=== PATIENT | male | born 1950 | race Caucasian/White ===

== ENCOUNTER 2021-08-19 08:56 | Outpatient (CLI) | payer MEDICARE, SELFPAY ==
--- NOTE | ~2021-08-19 | XR_ITS ---
EXAMINATION: XR abdomen/kub 1V EXAM DATE: 08/19/2021 09:27 INDICATION: LT ureteral stone. TECHNIQUE: Frontal projection of the upper abdomen, frontal projection lower abdomen/pelvis for inter pretation. There is no prior study for comparison. FINDINGS: There are some scattered calcifications overlying the sacrum. Correlation with patient's pr ior cross-sectional imaging would be helpful. There is moderate amount of colonic stool obscuring the renal contours. No small bowel obstruction. There is no organomegaly. Mild to moderate bony degenera tive changes. IMPRESSION: Calcifications overlying sacrum could be arterial sclerosis but correlation with prior i maging would be helpful. Reviewed, dictated and finalized at location B. IMPRESSION: Calcifications overlying sacrum could be arterial sclerosis but co rrelation with prior imaging would be helpful.
== END 2021-08-19 08:57 | disposition home or self-care (01) ==
PROVIDERS: PCP Internal Medicine; Visit Provider Nurse Practitioner
DX: N20.1 Calculus of ureter (principal)
CPT/HCPCS: 74018

== ENCOUNTER 2021-08-27 13:53 | Outpatient (CLI) | payer MEDICARE, SELFPAY ==
--- NOTE | ~2021-08-27 | CT_ITS ---
EXAMINATION: CT abdomen pelvis wo con DATE: 08/27/2021 14:19 INDICATION: Kidney stone. Left ureteral stone. TECHNIQUE: Computed tomography (CT) of the abdomen and pelvis was performed without intravenous contr ast. Automated exposure control and iterative reconstruction technique were employed. Exam dose: 290 .97 mGy-cm total exam DLP. COMPARISON: 08/19/2021 KUB FINDINGS: Emphysematous changes are noted in the lower lung zones. Calcified pulmonary granulomas. There is scattered patchy focal groundglass infiltrates in the middle lobe and lower lobes. Normal heart size. No pericardial or pleural effusion. Cholelithiasis. No gallbladder wall thickening or pericholecystic fluid or fat stranding or bile duct or pancreatic duct dilatation is detected. There are several up to 12 mm hepatic hypoattenuating les ions, some too small to definitively characterize, likely hepatic cysts. Normal splenic size. No pancreatic mass lesion or calcification. Probable diverticulum of the posterior aspect of the gastric fundus. The adrenal glands are unremarkable. 3.5 cm lower pole left renal cyst. No urinary tract calculus or hydroureteronephrosis. There is extensive calcification of the abdominal aorta, iliac and femoral arteries but no aneurysm. No intraperitoneal or retroperitoneal or pelvic mass lesion or adenopathy or ascites. Normal appendix. There are scattered left colon diverticula; no CT evidence of diverticulitis. No bowel obstruction, b owel wall thickening, pneumatosis or intraperitoneal free air. There is a prominent soft tissue mass at the base of the urinary bladder which may be prostate enlarg ement, prostate carcinoma or less likely urinary bladder urothelial carcinoma. There is moderate diff use thickening of the urinary bladder wall consistent with some bladder outlet obstruction due to the prostate enlargement. No suspicious osteolytic or osteoblastic lesions. IMPRESSION: No urinary tract calculi or hydroureteronephrosis Prominent soft tissue density at the base of the urinary bladder which may be due to prostate enlarge ment, prostate carcinoma and/or urothelial bladder carcinoma Moderate diffuse bladder wall thickening consistent with bladder outlet obstruction Diverticulosis of left colon; no CT evidence of diverticulitis 3.5 cm left renal cyst Probable hepatic cysts Cholelithiasis Emphysema Scattered small focal patchy groundglass infiltrates in the lower lung zones Reviewed, dictated and finalized at Location [facility]. Reviewed, dictated and finalized at location A. IMPRESSION: No urinary tract calculi or hydroureteronephrosis Prominent soft tissue density at the base of the urinary bladder which may be d ue to prostate enlargement, prostate carcinoma and/or urothelial bladder carcin b[place] Moderate diffuse bladder wall thickening consistent with bladder outlet obstruc tion Diverticulosis of left colon; no CT evidence of diverticulitis 3.5 cm left renal cyst Probable hepatic cysts Cholelithiasis Emphysema Scattered small focal patchy groundglass infiltrates in the lower lung zones
== END 2021-08-27 13:54 | disposition home or self-care (01) ==
LOC: ANHIMG 13:59
PROVIDERS: PCP Internal Medicine; Visit Provider Internal Medicine
DX: N20.0 Calculus of kidney (principal); K57.30 Diverticulosis of large intestine without perforation or abscess without bleeding; K80.20 Calculus of gallbladder without cholecystitis without obstruction; N28.1 Cyst of kidney, acquired; J43.9 Emphysema, unspecified
CPT/HCPCS: 74176

== ENCOUNTER 2025-01-30 10:05 | Emergency (ER) | payer MEDICARE, SELFPAY ==
--- NOTE | ~2025-01-30 | XR_ITS ---
EXAMINATION: XR ribs RT 2V w CXR 2V DATE: 01/30/2025 10:47 INDICATION: Cough. Rib injury. TECHNIQUE: Frontal and lateral views of the chest and 3 views of the right ribs were obtained. COMPARISON: Chest radiograph dated 11/07/2015 FINDINGS: Likely nondisplaced fracture at the anteriormost right eighth rib. No other rib fractures identified. Ventricles are clear with no focal airspace opacities, pulmonary edema, pleural effusion or pneumoth orax. Heart size is normal. IMPRESSION: 1. Likely nondisplaced fracture at the anteriormost right eighth rib. No pneumothorax or other acute cardiopulmonary disease. Reviewed, dictated and finalized at location B. IMPRESSION: 1. Likely nondisplaced fracture at the anteriormost right eighth rib. No pneumo thorax or other acute cardiopulmonary disease.
--- NOTE | 2025-01-30 10:10 | ED_ITS ---
HPI - URI/Sore Throat General Chief Complaint: Upper Respiratory Infection Stated Complaint: Rib pain Time Seen by Provider: 01/30/25 10:09 Source: patient Mode of arrival: ambulatory Limitations: no limitations History of Present Illness HPI Narrative: Patient is a 74-year-old male who presents with congestion, productive cough and right rib pain. Patient states congestion cough has been present for 5 days. Rib pain started 2 days ago when he was mowing and handle whipped back and hit him very hard. Patient states pain is 9/10 when coughing. Denies any swelling, redness or bruising to ribs. Patient has taken ibuprofen twice a day. Patient has also been taking Mucinex and Flonase. Denies any blood in sputum, fever, chills, nausea, vomiting, diarrhea. Has history of collapsed lung. Stop smoking 25 years ago. Related Data Home Medications ?Medication ?Instructions ?Recorded ?Confirmed ?Last Taken ?Type aspirin 325 mg tablet 325 mg PO DAILY 01/30/25 01/30/25 Unknown History cyanocobalamin (vitamin B-12) mcg 01/30/25 Unknown History 1,000 mcg/mL injection solution escitalopram oxalate 10 mg tablet mg 01/30/25 Unknown History fluticasone propionate 50 1 spray intranasal DAILY PRN 01/30/25 01/30/25 Unknown History mcg/actuation nasal allergy symptoms spray,suspension glimepiride 2 mg tablet mg 01/30/25 Unknown History lisinopril 20 mg tablet mg 01/30/25 Unknown History metformin 500 mg tablet mg 01/30/25 Unknown History metoprolol succinate 50 mg mg PO 01/30/25 Unknown History tablet,extended release 24 hr pioglitazone 30 mg tablet mg 01/30/25 Unknown History rosuvastatin 40 mg tablet mg 01/30/25 Unknown History tamsulosin 0.4 mg capsule mg PO 01/30/25 Unknown History Allergies Allergy/AdvReac Type Severity Reaction Status Date / Time fish oil Allergy Mild throat Verified 01/30/25 10:26 swelling Penicillins Allergy Mild Rash Verified 01/30/25 10:26 Review of Systems Review of Systems: All systems reviewed & are unremarkable except as noted in HPI and below Constitutional: Constitutional: Denies chills, Denies fatigue, Denies fever(s), Denies headache(s), Denies malaise and Denies weakness Eyes: Eyes: Denies blurry vision, Denies itchy eyes and Denies loss of vision ENT: Denies otalgia, Denies headache(s), Reports nasal congestion, Denies sinus pain and Denies sore throat Cardiovascular: Cardiovascular: Denies chest pain, Denies irregular heart rh ythm and Denies dyspnea Respiratory: Respiratory: Reports cough and Denies dyspnea Gastrointestinal: Gastrointestinal: Denies abdominal pain, Denies diarrhea, Denies nausea and Denies vomiting Musculoskeletal: Musculoskeletal: Denies back pain, Denies myalgias, Denies arthralgias and Reports other (chest wall pain) Integumentary/Breasts: Skin/Breast: Denies pruritus and Denies rash Neurologic: Denies headache(s), Denies loss of vision and Denies weakness Psychiatric: Psychiatric: Reports no additional psychiatric complaints Endocrine: Endocrine: Denies fatigue Allergic/Immunologic: Allergic/Immunologic: Denies itchy eyes PMFSH Family History Family History Other Diabetes mellitus Family history of Alzheimer's disease Family history of cardiovascular disease Family history of seizure disorder Social History Social History Smoking status: Never smoker Alcohol intake: never Comments At time of signature, agree with nursing past medical, surgical, social and family history. There is no relevant family history pertinent to the presenting complaint. Exam Const: General: cooperative, healthy appearing, comfortable, no acute distress and well nourished Nutritional Appearance: well nourished Orientation/consciousness: patient oriented x3 Limitations: no limitations HENMT: Head: normal to inspection, normocephalic and atraumatic Ears: hearing grossly normal bilaterally, external ears normal, TM's normal bilaterally, EAC's normal and no periauricular adenopathy Face/Nose/Sinus: Normal external nose present, Abnormal mucous membranes and turbinates present erythematous bilateral and diffuse, normal facial exam, sinuses nontender and face symmetric Face and sinus: normal facial exam, sinuses nontender and face symmetric Mouth: Yes Normal oral and palatal mucosa present, Yes lip normal, Yes tongue normal, Yes Normal salivary glands and ducts present, Yes oropharynx normal and Yes moist mucous membranes Teeth and gingiva: dentition normal Throat: posterior oropharynx normal, tonsils normal and uvula midline Eyes: General: appearance normal, both eyes and all related structures Alignment and Position: alignment normal and position normal Periorbital: periorbital findings normal Eyelids: eyelids normal Pupils: Equal, round and reactive pupils present Neck: Neck: normal visual inspection, full ROM, no lymphadenopathy and supple Chest: Chest palpation & inspection: normal inspection of the chest, normal palpation of entire chest wall, no crepitus and tenderness rib right mid- clavicular line involving the 8th rib and involving the 9th rib Resp: Effort & Inspection: normal respiratory effort and able to speak in complete sentences Auscultation: clear to auscultation bilaterally, no crackles, no rales, no rhonchi and no wheezes Cardio: Rate: regular rate Rhythm: regular rhythm Heart sounds: S1 normal heart sound present and S2 normal heart sound present GI: Inspection: normal to inspection Skin: General skin exam: normal color and no rashes or lesions noted Neuro: General: patient oriented x3 and moves all extremities Cranial nerves: Yes Equal, round and reactive pupils present Speech: normal speech Gait exam (Neuro): Normal gait present Extrem: General: normal to inspection, full ROM and no edema Psych: Appearance: grossly normal and well kempt Mental Status: mental status grossly normal Speech and movement: Normal speech and movement present Affect: normal affect Attitude: cooperative Thought process: Normal thought process present Course Course Emergency Course: Discharge instructions reviewed with patient, as well as provided in writing per nursing staff. The instructions also include specific and strict return/GO TO THE ER as well as f/u information. All questions have been answered, and the patient deny any further questions with discharge and discharge plan. Portions of this record may have been created with voice recognition software Level of Care: Express Care Visit Vital Signs Vital signs: Reviewed MDM - URI/Sore Throat MDM Narrative Medical decision making narrative: Patient states he has had runny nose at baseline for years after having COVID. Patient is now having worsening congestion and productive cough. Complicated by injury 2 days ago, now painful to cough. Will treat with antibiotics, steroids and albuterol inhaler due to fractured ribs. Will also prescribe muscle relaxers for chest wall pain and narcotic medication for pain control. Pt well hydrated appearing, in no respiratory distress, hemodynamically stable. Recommend supportive care. The patient is stable at time of discharge the clinical impression was discussed and the patient was given the opportunity to ask questions, which were addressed as completely as possible given the information available at present. Anticipatory guidance and return to care precautions were discussed and the importance of primary care follow-up was stressed and encouraged. The patient voiced understanding of the plan, indications to return, and the need for follow-up. Exam findings show no acute concerns or changes Patient is appropriate for outpatient treatment and follow-up. Differential diagnosis considered: [place] virus, strep pharyngitis, allergic rhinitis, upper respiratory tract infection, sinusitis, rhinosinusitis, nasopharyngitis. viral pharyngitis, otitis media, otitis externa, otitis effusion, foreign body, cerumen impaction, viral syndrome, and influenza.? Medical Records Attestation: I reviewed the patient's medical records. Imaging Data Radiologist's impression: EXAMINATION: XR ribs RT 2V w CXR 2V DATE: 01/30/2025 10:47 INDICATION: Cough. Rib injury. TECHNIQUE: Frontal and lateral views of the chest and 3 views of the right ribs were obtained. COMPARISON: Chest radiograph dated 11/07/2015 FINDINGS: Likely nondisplaced fracture at the anteriormost right eighth rib. No other rib fractures identified. Ventricles are clear with no focal airspace opacities, pulmonary edema, pleural effusion or pneumothorax. Heart size is normal. IMPRESSION: 1. Likely nondisplaced fracture at the anteriormost right eighth rib. No pneumothorax or other acute cardiopulmonary disease. Discharge Plan Discharge Clinical Impression: Upper respiratory infection with cough and congestion, Fracture, rib Patient Disposition: Home Condition: Stable Instructions: Rib Fracture (ED), Upper Respiratory Infection (ED) Additional Instructions: Take antibiotic as prescribed. Take steroids in the morning with food. Use inhaler with spacer as needed. You have been prescribed Doxycycline today.It may make your skin more sensitive to sunlight than normal. Make sure you wear sunscreen at all times when outside while on the medication. Other symptomatic treatments include: -Alternate Tylenol and Motrin per package directions for fever or pain: Tylenol 650-1000mg by mouth every 4-6 hours. Do not exceed 4000mg in 24 hours. Advil (Ibuprofen) 600 mg by mouth every 6 hours. Do not exceed 2400mg in 24 hours. 8 AM: Tylenol 11 AM: Ibuprofen 2 PM: Tylenol 5 PM: Ibuprofen 8 PM: Tylenol 11 PM: Ibuprofen 2 AM: Tylenol 5 AM: Ibuprofen -Antihistamine medication such as Benadryl at night and Zyrtec/Claritin/Susu during the day can help improve symptoms. -Use Flonase twice a day for 5 days then daily to help reduce the inflammation and dry up your sinuses. -You can also use Sudafed or Mucinex. Be sure to drink plenty of water with these medications at least 8 ounces with every dose and it is important to drink 8 to 10 glasses of water per day. Water is a natural decongestant -Eat and drink things that are easy to swallow, like tea or soup, or popsicles. -Oral rinses such as: Salt water gargles and/or may use topical anesthetic (eg. Chloraseptic spray) or lozenges to relieve dryness or throat pain). -Frequent hand washing or hand other sports coach or instructor is one of the best ways to prevent spread of infection. -Using a vaporizer or humidifier at night will also help thin secretions and help with coughing up phlegm. Call your Primary Care Doctor and make a follow-up appointment in 3 days. If your cough worsens, you develop a fever greater than 103, you develop shaking chills, a fast heartbeat, trouble breathing and/or feel you are are breathing much faster than usual, call your Primary Care Doctor or go to the ER. Pain may get worse for a week and last for up to eight weeks.The most important thing is to get your pain under control. Breathing exercises will not be effective unless your pain is controlled. Take your pain relieving medications as prescribed by your doctor, and continue to speak with your primary care doctor about maintaining your pain relief. Strenuous activities should be avoided for the first 3-4 weeks, after which you can commence physical activity as pain allows. If the pain is increasing you may be doing too much. Cough and deep breath at least 10 times per hour. Try holding a cushion firmly against the painful site when you benitez and cough to decrease the pain. Sit out of bed and keep moving as much as you feel comfortable. This will decrease the risk of developing lung complications. Your blood pressure was elevated above 120/80 today at Urgent Care. This puts you above the threshold for follow up visit with a primary care provider. High blood pressure does not usually cause any symptoms, however it may lead to kidney failure, stroke, heart disease just to name a few if untreated . Many people are anxious when seeing a provider or nurse. As a result, you are not diagnosed with hypertension at this time unless your blood pressure is persistently high at two office visits at least one week apart. Some things that can help lower blood pressure are lifestyle modifications, such as light exercise, decreased salt in diet, and weight loss. It is important to follow up with a PCP about this within 1 week. If you are having a hard time finding a physician please call our [facility] liaison at [phone]. Patient Language: Tuvaluan Prescriptions: New (DME) Tej HOOD Spacer See Rx Instructions .Route Qty: 1 0RF Rx Instructions: As directed prednisone 20 mg tablet 40 mg PO DAILY 5 Days Qty: 10 0RF doxycycline monohydrate 100 mg tablet 100 mg PO BID 5 Days Qty: 10 0RF albuterol sulfate 90 mcg/actuation HFA aerosol inhaler 2 puff inhalation QID PRN (Reason: shortness of breath or wheezing) Qty: 6.7 0RF hydrocodone-acetaminophen 5-325 mg tablet 1 tablet PO Q6H PRN (Reason: pain) Qty: 12 0RF baclofen 10 mg tablet 10 mg PO TID 5 Days Qty: 15 0RF No Action metoprolol succinate 50 mg tablet extended release 24 hr PO tamsulosin 0.4 mg capsule PO cyanocobalamin (vitamin B-12) 1,000 mcg/mL solution pioglitazone 30 mg tablet escitalopram oxalate 10 mg tablet rosuvastatin 40 mg tablet aspirin 325 mg tablet 325 mg PO DAILY fluticasone propionate 50 mcg/actuation spray,suspension 1 spray intranasal DAILY PRN (Reason: allergy symptoms) Rx Instructions: administer into each nostril metformin 500 mg tablet lisinopril 20 mg tablet glimepiride 2 mg tablet Follow-up/Referrals: Abhi Estrada MD [Physician] - 3 Days Time of Disposition: 11:38
[2025-01-30 10:22] VITALS: BP 141/59; PULSE 77; RESP 18; TEMP 36.2; O2SAT 99
--- OUTSIDE RECORDS SUMMARY | 2025-01-30 10:45 | XMS_ITS | Continuity of Care Document ---
Author Organization [facility] Address [address] [place] [address] [address] [place] [address] Phone Care Team Providers Care Locomotive Repairer Diesel Name Role Phone Uriah Pérez DO Unavailable Unavailable Advance Directives Directive Yes / No Effective Date File Name No Information Encounters Encounter Description Practice Location Reason(s) For Visit Diagnoses Date Provider Providers Copied on Encounter [facility], [address], [place], [place], [id number], tel:[phone] [facility] No Information [address] [address] [place], [address], [place]. tel:[phone] Referring Provider: Sachin Hu OD W, [address] [place] [address], [address]. tel:[phone] Family History Family Member Type Diagnosis Age At Onset No Information Payers Payer name Insurance type Covered libertarian ID Authoriza tion(s) No Information Social History Type Description Quantity Date Captured Comments Sex Male Smoking Status No Information Chief Complaint And Reason For Visit No Information Reason For Referral Reason For Referral No Information History Of Present Illness Encounter Date Complaint History Of Prese nt Illness No Information Functional Status Date Functional Assessmen t No Information Instructions Date Instruction Additional Infor mation No Information Assessments Type Assessment Date No Information Patient Care Teams Name Effective Dates (start - stop) Status Members No Information
--- OUTSIDE RECORDS SUMMARY | 2025-01-30 10:45 | XMS_ITS | Clinical Summary ---
Author Organization [facility] Address [address] [place] [address] Care Team Providers Care Pest Control Supervisor Name Role Phone Unavailable Primary Care Provider Unavailabl e Source Comments [facility],non-owned Affiliates and Associated Physician Practices is amultiple site organization consisting of ambulatory clinics and hospital sitesin [place], [place], [place] and [place]. This disclosure is being madepursuant to the Care Everywhere program and may not contain all information available regarding this patient. Last updated 18.[facility] [employer] Social History Tobacco Use Types Packs/Day Years Used Date Smoking Tobacco: Never Assessed Sex and Gender Information Value Date Recorded Sex Assigned at Not on file Gender Identity Not on file Sexual Orientation Not on file Plan of Treatment Health Maintenance Due Date Last Done Comments COLOGUARD (AGES 45-75) - COL ON CA SCREENING 1950 COLON MONITORING 1951 COLONOSCOPY - COLON CA SCREENING 1951 CT COLONOGRAPHY - COLON CA SCREENING 1950 Colorectal Cancer Screening 1950 FIT - COLON CA SCREENING 1950 FLEX SIG - COLON CA SCREENING 1950 LIPID TESTING 1950 HEPATITIS C SCREENING 02/12/1969 DTAP/TDAP/TD VACCINES (1 - Tdap) 1970 PNEUMOCOCCAL VACCINE 50+ (1 of 1 - PCV) 2001 ZOSTER VACCINE (1 of 2) 2001 COVID-19 VACCINE ( - 2023-2 5 season) 2024 DEPRESSION SCREENING 10/23/2024 INFLUENZA VACCINE (Season Ended) 2025 Respiratory Syncytial Virus (RSV) Vaccine Pt: or over 60 yrs (1 - 1-dose 75+ series) 2026 HEPATITIS B VACCINE Aged Out No longe r eligible based on patient's age to complete this topic HIB VACCINE Aged Out No longer eligi ble based on patient's age to complete this topic HPV VACCINE Aged Out No longer eligi ble based on patient's age to complete this topic MENINGOCOCCAL (Group B) VACC INE SHARED DECISION-MAKING Aged Out No longer eligibl e based on patient's age to complete this topic MENINGOCOCCAL GROUPS A/C/Y/W VACCINE Aged Out No longer eligible b ased on patient's age to complete this topic
--- OUTSIDE RECORDS SUMMARY | 2025-01-30 10:45 | XMS_ITS | Clinical Summary ---
Author Organization [facility] Address [address] [place] [address] Care Team Providers Care Boiler Cleaner Name Role Phone Juanita Sarmiento MD Primary Care Provider [phone] Social History Tobacco Use Types Packs/Day Years Used Date Smoking Tobacco: Never Assessed Sex and Gender Information Value Date Recorded Sex Assigned at Not on file Legal Sex Male 4:27 PM CDT Gender Identity Not on file Sexual Orientation Not on file Plan of Treatment Health Maintenance Due Date Last Done Comments Colorectal Cancer Screening Colonoscopy (10 Years) 1951 Hepatitis C 1969 DTaP, Tdap and Td Vaccines ( 1 - Tdap) 1970 Zoster Vaccines (1 of 2) 2001 Annual Medicare Wellness Visit 02/18/2016 Pneumococcal Vaccine: 65+ Ye ars (1 of 1 - PCV) 02/18/2016 COVID-19 Vaccine ( - 2023-2 5 season) 2024 RSV Immunization or 60+ Years (1 - 1-dose 75+ series) 2026 Meningococcal B Vaccine Aged Out No l onger eligible based on patient's age to complete this topic Meningococcal Vaccine Aged Out No dimas tami eligible based on patient's age to complete this topic RSV Immunizations Under 20 Months Aged Out No longer eligible based on patient's age to complete this topic Insurance [employer] Care Teams Boiler Cleaner Relationship Specialty Start Date End Date Juanita Sarmiento MD [address] [place] [address] PCP - General INTERNAL MEDICINE 07/28/22
--- OUTSIDE RECORDS SUMMARY | 2025-01-30 10:46 | XMS_ITS | Data Portability ---
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 Studies ordered as below. Discussed plan with patient/careg iver, who expressed understanding . Follow up as noted below. [email or web address] Not available 07/31/2023 09:08:54 10/30/2023 10/30/2023 Patient presented for follow up. Studies ordered as below. Discussed plan with patient/careg iver, who expressed understanding . Follow up as noted below. Not available 10/30/2023 10:34:38 04/15/2024 04/15/2024 Patient presented for follow up. Studies ordered as below. Discussed plan with patient/careg iver, who expressed understanding . Follow up as noted below. Not available 04/15/2024 18:55:43 04/29/2024 04/29/2024 Patient presented for follow up. Studies ordered as below. Discussed plan with patient/careg iver, who expressed understanding . Follow up as noted below. Not available 04/29/2024 09:54:19 09/02/2024 09/02/2024 Patient presented for follow up. Studies ordered as below. Discussed plan with patient/careg iver, who expressed understanding . Follow up as noted below. Not available 09/02/2024 09:13:51 Plan of Treatment Reminders Order Date Submit Date Provider Last Modified By Organization Details Last Modified Time Details Appointments ESTABLISH ED PATIENT 15 2024 08:00A Tere Rizo MD Not available Not available Not available Lab HbA1c (hemoglob in A1c), blood 2023 024 [facility], [address] [place] [address], [id number], 09/23/2024 03:35:32 C-peptide , serum 2023 024 [facility], [address] [place] [address], [id number], 09/23/2024 03:35:33 microalbu min/creat inine, mass ratio, urine 2023 024 [facility], [address] [place] [address], [id number], 09/23/2024 03:35:30 vitamin B12, serum 2023 024 [facility], [address] [place] [address], [id number], 09/23/2024 03:35:34 lipid panel w/ direct LDL, serum 2023 024 [facility], [address] [place] [address], [id number], 09/23/2024 03:35:29 TSH, serum or plasma 2023 024 [facility], [address] [place] [address], [id number], 09/23/2024 03:35:31 CMP, serum or plasma 2023 024 [facility], [address] [place] [address], [id number], 09/23/2024 03:35:28 CBC w/ auto diff 2023 024 [facility], [address] [place] [address], [id number], 09/23/2024 03:35:26 vitamin D, 25-hydrox y, total, serum 2023 024 [facility], [address] [place] [address], [id number], 09/23/2024 03:35:33 CMP, serum or plasma 2023 024 [facility], [address] [place] [address], [id number], 04/23/2024 16:36:11 CBC 2023 024 [facility], [address] [place] [address], [id number], 04/23/2024 16:36:12 hemoglobi n A1c, QN, blood 2023 024 [facility], [address] [place] [address], [id number], 04/15/2024 19:26:00 C-peptide , serum 2023 024 [facility], [address] [place] [address], [id number], 04/23/2024 16:36:14 vitamin B12, serum 2023 024 [facility], [address] [place] [address], [id number], 04/23/2024 16:36:15 lipid panel w/ direct LDL, serum 2023 024 [facility], [address] [place] [address], [id number], 11/24/2023 07:36:50 TSH, serum or plasma 2023 024 [facility], [address] [place] [address], [id number], 11/24/2023 07:36:52 CMP, serum or plasma 2023 024 [facility], [address] [place] [address], [id number], 11/24/2023 07:36:49 CBC w/ auto diff 2023 024 [facility], [address] [place] [address], [id number], 11/24/2023 07:36:48 HbA1c (hemoglob in A1c), blood 2023 024 [facility], [address] [place] [address], [id number], 11/24/2023 07:36:53 microalbu min/creat inine, mass ratio, urine 2023 024 [facility], [address] [place] [address], [id number], 11/24/2023 07:36:51 C-peptide , serum 2023 024 [facility], [address] [place] [address], [id number], 11/24/2023 07:36:53 vitamin B12, serum 2023 024 [facility], [address] [place] [address], [id number], 11/24/2023 07:36:54 lipid panel w/ direct LDL, serum 2022 023 [facility], [address] [place] [address], [id number], 08/07/2023 05:30:16 TSH, serum or plasma 2022 023 [facility], [address] [place] [address], [id number], 08/07/2023 05:31:08 CMP, serum or plasma 2022 023 [facility], [address] [place] [address], [id number], 08/07/2023 05:30:43 CBC w/ auto diff 2022 023 [facility], [address] [place] [address], [id number], 08/07/2023 05:31:07 HbA1c (hemoglob in A1c), blood 2022 023 [facility], [address] [place] [address], [id number], 04/23/2024 16:36:13 C-peptide , serum 2022 023 [facility], [address] [place] [address], [id number], 08/07/2023 05:30:25 vitamin D, 25-hydrox y, total, serum 2022 023 [facility], [address] [place] [address], [id number], 08/07/2023 05:30:20 Referral physical therapist referral 2023 024 [facility], [address], [place], [address], 07/28/2024 04:01:29 endocrino logy referral [address] - Endocrinology , [address], [place], [address], 04/29/2024 10:28:02 physical therapist referral 2023 024 [facility], [address] [place], [address], 07/28/2024 04:01:29 cardiolog ist referral 2023 024 angel Fournier MD, [address] [place], [address], 04/15/2024 19:33:44 Procedures None recorded. Surgeries None recorded. Imaging US, renal 2023 024 [facility], [address], [address], [place], [address], 09/09/2024 04:09:51 XR, cervical spine, 2 or 3 view 2023 024 [facility], [address], [place], [address], 05/07/2024 13:27:55 XR, lumbar spine 2023 024 [facility], [address], [place], [address], 05/07/2024 13:30:06 CT, angiogram , chest, w/wo contrast 2023 024 [facility], [address], [place], [address], 04/17/2024 11:35:14 electroca rdiogram 2023 024 [facility], [address], [place], [address], 04/16/2024 13:14:24 XR, kidney + ureter + bladder 2023 024 [facility], [address], [place], [address], 11/06/2023 04:03:03 electroca rdiogram 2023 024 [facility], [address], [place], [address], 10/30/2023 13:10:49 XR, kidney + ureter + bladder 2022 023 [facility], [address], [place], [address], 08/07/2023 05:30:59 Medication Orders Tylenol Extra Strength 500 mg tablet 2023 024 [facility] #53778, [address] [place], [place], [id number], 09/02/2024 09:42:23 baclofen 10 mg tablet 2023 024 [facility] #44767, [address], [place], [id number], 04/29/2024 10:24:31 Tylenol Extra Strength 500 mg tablet 2023 024 [facility] #25543, [address], [place], [id number], 04/29/2024 10:24:26 lisinopri l 20 mg tablet 2023 024 [facility] #65527, [address], [place], [id number], 04/15/2024 19:25:52 metformin 500 mg tablet 2023 024 [facility] #58222, [address], [place], [id number], 04/15/2024 19:25:50 omeprazol e 20 mg capsule,d elayed release 2023 [facility], [address] [facility], [place], [place], [id number], 04/15/2024 19:25:53 Patient TargetsNo targets recorded. Patient Instructions Encounter Date Encounter Id Patient Instructions Last Modified By Organization Details Last Modified Time 07/31/2023 [id number] kidney stone: ca re instructions mshenouda Not available 07/31/2023 09:42:21 learning about d iet for kidney stone prevention mshenouda Not available 07/31/2023 09:42:21 body mass index: care instructions mshenouda Not available 07/31/2023 09:42:20 learning about healthy weight mshenouda Not available 07/31/2023 09:42:20 10/30/2023 [id number] chronic obstruct melania pulmonary disease (COPD): care instructions mshenouda Not available 10/30/2023 11:33:48 kidney stone: ca re instructions mshenouda Not available 10/30/2023 11:33:48 learning about d iet for kidney stone prevention mshenouda Not available 10/30/2023 11:33:47 body mass index: care instructions mshenouda Not available 10/30/2023 11:33:48 learning about healthy weight mshenouda Not available 10/30/2023 11:33:49 living will mshenouda Not available 05/2024 11:29:14 04/15/2024 [id number] body mass index: care instructions mshenouda Not available 04/15/2024 19:25:42 learning about healthy weight mshenouda Not available 04/15/2024 19:25:43 04/29/2024 [id number] neck pain: care instructions mshenouda Not available 04/29/2024 10:24:20 type 2 diabetes: care instructions mshenouda Not available 04/29/2024 10:24:21 back care and preventing injuries: care instructions mshenouda Not available 04/29/2024 10:24:20 getting back to normal after low back pain: care instructions mshenouda Not available 04/29/2024 10:24:21 learning about relief for back pain mshenouda Not available 04/29/2024 10:24:21 09/02/2024 [id number] neck pain: care instructions mshenouda Not available 09/02/2024 09:42:13 back care and preventing injuries: care instructions mshenouda Not available 09/02/2024 09:42:13 getting back to normal after low back pain: care instructions mshenouda Not available 09/02/2024 09:42:13 learning about relief for back pain mshenouda Not available 09/02/2024 09:42:13 chronic obstruct melania pulmonary disease (COPD): care instructions mshenouda Not available 09/02/2024 09:42:14 spirometry testing* LEROY Not availa ble 09/02/2024 10:33:25 hyperkalemia: ca re instructions mshenouda Not available 09/02/2024 09:42:14 kidney stone: ca re instructions mshenouda Not available 09/02/2024 09:42:15 learning about d iet for kidney stone prevention mshenouda Not available 09/02/2024 09:42:14 gastroesophageal reflux disease (GERD): care instructions mshenouda Not available 09/02/2024 09:42:15 body mass index: care instructions mshenouda Not available 09/02/2024 09:42:14 learning about healthy weight mshenouda Not available 09/02/2024 09:42:14 living will mshenouda Not available 08/23 09:36:15 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 At 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 chest 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 Referring Physician: Juanita Rizo, Internal Medicine, Encounter Date: 04/15/2024 Physical Therapist Referral for Neck pain Referring Physician: Juanita Rizo, Internal Medicine, Encounter Date: 04/29/2024 Physical Therapist Referral for Low back pain Referring Physician: Juainta Rizo Internal Medicine, Encounter Date: 04/29/2024 Endocrinology Referral for U ncontrolled type 2 diabetes mellitus Referring Physician: Juanita Rizo, Internal Medicine, Encounter Date: 04/29/2024 Results Created Date Observation Date Name Description Value Unit Range Abnormal Flag Note LastModifiedBy Organization Detail LastModifiedTime 07/18/2007/18/2023 COLOG UARD cologuard result CANCEL LED - ORDER D not applic able Not Available [facility] (Cologuard Orders Only) [address], [place], [address], 07/18/2023 08:46:13 11/21/19 24 11/22/2023 CBC WITH DIFFE RENTI AL/PL ATELE T WBC 7.4 x10e3 /uL 3.4-10 .8 Not Available [facility] ([facility]) [address] [place], [address], 11/24/2023 07:36:47 11/21/19 24 11/22/2023 CBC WITH DIFFE RENTI AL/PL ATELE T RBC 4.90 x10e6 /uL 4.14-5 .80 Not Available [facility] ([facility]) [address] [place], [address], 11/24/2023 07:36:47 11/21/19 24 11/22/2023 CBC WITH DIFFE RENTI AL/PL ATELE T hemoglobin 14.6 g/dL 13.0-1 7.7 Not Available [facility] ([facility]) [address] [place], [address], 11/24/2023 07:36:47 11/21/19 24 11/22/2023 CBC WITH DIFFE RENTI AL/PL ATELE T hematocrit 44.8 % 37.5-5 1.0 Not Available [facility] ([facility]) [address] [place], [address], 11/24/2023 07:36:47 11/21/19 24 11/22/2023 CBC WITH DIFFE RENTI AL/PL ATELE T MCV 91 fL 79-97 Not Available [facility] ([facility]) [address] [place], [address], 11/24/2023 07:36:47 11/21/19 24 11/22/2023 CBC WITH DIFFE RENTI AL/PL ATELE T MCH 29.8 pg 26.6-3 3.0 Not Available [facility] ([facility]) [address] [facility], [place], [address], 11/24/2023 07:36:47 11/21/19 24 11/22/2023 CBC WITH DIFFE RENTI AL/PL ATELE T MCHC 32.6 g/dL 31.5-3 5.7 Not Available [facility] ([facility]) [address] [facility], [place], [address], 11/24/2023 07:36:47 11/21/19 24 11/22/2023 CBC WITH DIFFE RENTI AL/PL ATELE T RDW 13.2 % 11.6-1 5.4 Not Available [facility] ([facility]) [address] [place], [address], 11/24/2023 07:36:47 11/21/19 24 11/22/2023 CBC WITH DIFFE RENTI AL/PL ATELE T platelets 276 x10e3 /uL 150-45 0 Not Available [facility] ([facility]) [address] [facility], [place], [address], 11/24/2023 07:36:47 11/21/19 24 11/22/2023 CBC WITH DIFFE RENTI AL/PL ATELE T neutrophils 71 % not estab. Not Available [facility] ([facility]) [address] [facility], [place], [address], 11/24/2023 07:36:47 11/21/19 24 11/22/2023 CBC WITH DIFFE RENTI AL/PL ATELE T lymphs 20 % not estab. Not Available [facility] ([facility]) [address] [place], [address], 11/24/2023 07:36:47 11/21/19 24 11/22/2023 CBC WITH DIFFE RENTI AL/PL ATELE T monocytes 7 % not estab. Not Available [facility] ([facility]) [address] [facility], [place], [address], 11/24/2023 07:36:47 11/21/19 24 11/22/2023 CBC WITH DIFFE RENTI AL/PL ATELE T eos 2 % not estab. Not Available [facility] ([facility]) [address] [place], [address], 11/24/2023 07:36:47 11/21/19 24 11/22/2023 CBC WITH DIFFE RENTI AL/PL ATELE T basos 0 % not estab. 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 0 Not Available [facility] ([facility]) [address] [place], [address], 11/24/2023 07:36:47 11/21/19 24 11/22/2023 CBC WITH DIFFE RENTI AL/PL ATELE T lymphs (absolute) 1.5 x10e3 /uL 0.7-3. 1 Not Available [facility] ([facility]) [address] [place], [address], 11/24/2023 07:36:47 11/21/19 24 11/22/2023 CBC WITH DIFFE RENTI AL/PL ATELE T monocytes(ab solute) 0.5 x10e3 /uL 0.1-0. 9 Not Available [facility] ([facility]) [address] [facility], [place], [address], 11/24/2023 07:36:47 11/21/19 24 11/22/2023 CBC WITH DIFFE RENTI AL/PL ATELE T eos (absolute) 0.2 x10e3 /uL 0.0-0. 4 Not Available [facility] ([facility]) [address] [facility], [place], [address], 11/24/2023 07:36:47 11/21/19 24 11/22/2023 CBC WITH DIFFE RENTI AL/PL ATELE T baso (absolute) 0.0 x10e3 /uL 0.0-0. 2 Not Available [facility] ([facility]) [address] [facility], [place], [address], 11/24/2023 07:36:47 11/21/19 24 11/22/2023 CBC WITH DIFFE RENTI AL/PL ATELE T immature granulocytes 0 % not estab. Not Available [facility] ([facility]) [address] [facility], [place], [address], 11/24/2023 07:36:47 11/21/19 24 11/22/2023 CBC WITH DIFFE RENTI AL/PL ATELE T immature grans (abs) 0.0 x10e3 /uL 0.0-0. 1 Not Available [facility] ([facility]) [address] [facility], [place], [address], 11/24/2023 07:36:47 11/21/19 24 11/22/2023 CBC WITH DIFFE RENTI AL/PL ATELE T NRBC ROAD MACHINE RUNNER Not Available [facility] ([facility]) [address] [facility], [place], [address], 11/24/2023 07:36:47 11/21/19 24 11/22/2023 CBC WITH DIFFE RENTI AL/PL ATELE T hematology comments: ROAD MACHINE RUNNER Not Available [facility] ([facility]) [address] [place], [address], 11/24/2023 07:36:47 11/21/19 24 11/22/2023 COMP. METAB OLIC PANEL (14) glucose 209 mg/dL 70-99 above high normal Not Available [facility] ([facility]) [address] [place], [address], 11/24/2023 07:36:49 11/21/19 24 11/22/2023 COMP. METAB OLIC PANEL (14) BUN 16 mg/dL 8-27 Not Available [facility] ([facility]) [address] [place], [address], 11/24/2023 07:36:49 11/21/19 24 11/22/2023 COMP. METAB OLIC PANEL (14) creatinine 1.35 mg/dL 0.76-1 .27 above high normal Not Available [facility] ([facility]) [address] [place], [address], 11/24/2023 07:36:49 11/21/19 24 11/22/2023 COMP. METAB OLIC PANEL (14) eGFR 56 mL/mi n/1.7 3 >59 below low normal Not Available [facility] ([facility]) [address] [place], [address], 11/24/2023 07:36:49 11/21/19 24 11/22/2023 COMP. METAB OLIC PANEL (14) BUN/creatini ne ratio 12 10-24 Not Available [facility] ([facility]) [address] [place], [address], 11/24/2023 07:36:49 11/21/19 24 11/22/2023 COMP. METAB OLIC PANEL (14) sodium 139 mmol/ L 134-14 4 Not Available [facility] ([facility]) [address] [place], [address], 11/24/2023 07:36:49 11/21/19 24 11/22/2023 COMP. METAB OLIC PANEL (14) potassium 4.4 mmol/ L 3.5-5. 2 Not Available [facility] ([facility]) [address], [place], [address], 11/24/2023 07:36:49 11/21/19 24 11/22/2023 COMP. METAB OLIC PANEL (14) chloride 100 mmol/ L 96-106 Not Available [facility] ([facility]) [address], [place], [address], 11/24/2023 07:36:49 11/21/19 24 11/22/2023 COMP. METAB OLIC PANEL (14) carbon dioxide, total 23 mmol/ L 20-29 Not Available [facility] ([facility]) [address] [place], [address], 11/24/2023 07:36:49 11/21/19 24 11/22/2023 COMP. METAB OLIC PANEL (14) calcium 9.8 mg/dL 8.6-10 .2 Not Available [facility] ([facility]) [address] [place], [address], 11/24/2023 07:36:49 11/21/19 24 11/22/2023 COMP. METAB OLIC PANEL (14) protein, total 6.9 g/dL 6.0-8. 5 Not Available [facility] ([facility]) [address] [place], [address], 11/24/2023 07:36:49 11/21/19 24 11/22/2023 COMP. METAB OLIC PANEL (14) albumin 4.5 g/dL 3.8-4. 8 Not Available [facility] ([facility]) [address] [place], [address], 11/24/2023 07:36:49 11/21/19 24 11/22/2023 COMP. METAB OLIC PANEL (14) globulin, total 2.4 g/dL 1.5-4. 5 Not Available [facility] ([facility]) [address] [place], [address], 11/24/2023 07:36:49 11/21/19 24 11/22/2023 COMP. METAB OLIC PANEL (14) A/G ratio 1.9 1.2-2. 2 Not Available [facility] ([facility]) [address] [facility], [place], [address], 11/24/2023 07:36:49 11/21/19 24 11/22/2023 COMP. METAB OLIC PANEL (14) bilirubin, total 0.4 mg/dL 0.0-1. 2 Not Available [facility] ([facility]) [address] [facility], [place], [address], 11/24/2023 07:36:49 11/21/19 24 11/22/2023 COMP. METAB OLIC PANEL (14) alkaline phosphatase 56 IU/L 44-121 Not Available [facility] ([facility]) [address] [place], [address], 11/24/2023 07:36:49 11/21/19 24 11/22/2023 COMP. METAB OLIC PANEL (14) AST (SGOT) 22 IU/L 0-40 Not Available [facility] ([facility]) [address] [place], [address], 11/24/2023 07:36:49 11/21/19 24 11/22/2023 COMP. METAB OLIC PANEL (14) ALT (SGPT) 22 IU/L 0-44 Not Available [facility] ([facility]) [address] [place], [address], 11/24/2023 07:36:49 11/21/19 24 11/22/2023 LP+LD L DIREC T cholesterol, total 156 mg/dL 100-19 9 Not Available [facility] ([facility]) [address] [place], [address], 11/24/2023 07:36:50 11/21/19 24 11/22/2023 LP+LD L DIREC T triglyceride s 167 mg/dL 0-149 above high normal Not Available [facility] ([facility]) [address] [facility], [place], [address], 11/24/2023 07:36:50 11/21/19 24 11/22/2023 LP+LD L DIREC T HDL cholesterol 34 mg/dL >39 below low normal Not Available [facility] ([facility]) [address] [facility], [place], [address], 11/24/2023 07:36:50 11/21/19 24 11/22/2023 LP+LD L DIREC T VLDL cholesterol irvin 29 mg/dL 5-40 Not Available [facility] ([facility]) [address] [place], [address], 11/24/2023 07:36:50 11/21/19 24 11/22/2023 LP+LD L DIREC T LDL chol calc (nih) 93 mg/dL 0-99 Not Available [facility] ([facility]) [address] [place], [address], 11/24/2023 07:36:50 11/21/19 24 11/22/2023 LP+LD L DIREC T comment: ROAD MACHINE RUNNER Not Available [facility] ([facility]) [address] [place], [address], 11/24/2023 07:36:50 11/21/19 24 11/22/2023 LP+LD L DIREC T LDL chol. (direct) 89 mg/dL 0-99 Not Available [facility] ([facility]) [address] [place], [address], 11/24/2023 07:36:50 11/21/19 24 11/22/2023 ALBUM IN/CR EAT RATIO , RANDO M UR creatinine, urine 142.1 mg/dL not estab. Not Available [facility] ([facility]) [address] [facility], [place], [address], 11/24/2023 07:36:51 11/21/19 24 11/22/2023 ALBUM IN/CR EAT RATIO , RANDO M UR albumin, urine 29.0 ug/mL not estab. Not Available [facility] ([facility]) [address] [facility], [place], [address], 11/24/2023 07:36:51 11/21/19 24 11/22/2023 ALBUM IN/CR EAT RATIO , RANDO M UR alb/creat ratio 20 mg/g_ creat 0-29 Denice l: 0 - 29 Moder ately incre ased: 30 - 300 Sever baljit incre ased: >300 Not Available [facility] ([facility]) [address] [facility], [place], [address], 11/24/2023 07:36:51 11/21/19 24 11/24/2023 THYRO ID STIMU LATIN G HORMO NE TSH-icma 1.4 uu/mL Refer ence Range : Non-P regna nt Adult 0.450 -4.50 0 Not Available [facility] [address] [place] [address], [place], [address], 11/24/2023 07:36:52 11/21/19 24 11/22/2023 HEMOG LOBIN A1C hemoglobin A1C 8.7 % 4.8-5. 6 above high normal Predi abete s: 5.7 - 6.4 Diabe lu: >6.4 Glyce jaye contr ol for adult s with diabe ul: <7.0 Not Available [facility] ([facility]) [address] [facility], [place], [address], 11/24/2023 07:36:53 11/21/19 24 11/22/2023 C-PEP TIDE, SERUM C-peptide, serum 3.8 NG/mL 1.1-4. 4 C-Pep tide refer ence inter montse is for fasti ng patie nts. Not Available [facility] ([facility]) [address] [facility], [place], [address], 11/24/2023 07:36:53 11/21/19 24 11/22/2023 VITAM IN B12 vitamin B12 251 pg/mL 232-12 45 Not Available [facility] ([facility]) [address] [facility], [place], [address], 11/24/2023 07:36:54 04/22/20 24 04/23/2024 COMP. METAB OLIC PANEL (14) glucose 159 mg/dL 70-99 above high normal Not Available [facility] ([facility]) [address] [facility], [place], [place], [address], 04/23/2024 16:36:11 04/22/20 24 04/23/2024 COMP. METAB OLIC PANEL (14) BUN 19 mg/dL 8-27 normal Not Available [facility] ([facility]) [address] [place], [address], 04/23/2024 16:36:11 04/22/20 24 04/23/2024 COMP. METAB OLIC PANEL (14) creatinine 1.25 mg/dL 0.76-1 .27 normal Not Available [facility] ([facility]) [address] [place], [address], 04/23/2024 16:36:11 04/22/20 24 04/23/2024 COMP. METAB OLIC PANEL (14) eGFR 61 mL/mi n/1.7 3 >59 normal Not Available [facility] ([facility]) [address] [place], [address], 04/23/2024 16:36:11 04/22/20 24 04/23/2024 COMP. METAB OLIC PANEL (14) BUN/creatini ne ratio 15 10-24 normal Not Available [facility] ([facility]) [address] [place], [address], 04/23/2024 16:36:11 04/22/20 24 04/23/2024 COMP. METAB OLIC PANEL (14) sodium 139 mmol/ L 134-14 4 normal Not Available [facility] ([facility]) [address] [place], [address], 04/23/2024 16:36:11 04/22/20 24 04/23/2024 COMP. METAB OLIC PANEL (14) potassium 4.4 mmol/ L 3.5-5. 2 normal Not Available [facility] ([facility]) [address] [place], [address], 04/23/2024 16:36:11 04/22/20 24 04/23/2024 COMP. METAB OLIC PANEL (14) chloride 103 mmol/ L 96-106 normal Not Available [facility] ([facility]) [address] [place], [address], 04/23/2024 16:36:11 04/22/20 24 04/23/2024 COMP. METAB OLIC PANEL (14) carbon dioxide, total 23 mmol/ L 20-29 normal Not Available [facility] ([facility]) [address] [place], [address], 04/23/2024 16:36:11 04/22/20 24 04/23/2024 COMP. METAB OLIC PANEL (14) calcium 9.4 mg/dL 8.6-10 .2 normal Not Available [facility] ([facility]) [address] [place], [address], 04/23/2024 16:36:11 04/22/20 24 04/23/2024 COMP. METAB OLIC PANEL (14) protein, total 6.5 g/dL 6.0-8. 5 normal Not Available [facility] ([facility]) [address] [place], [address], 04/23/2024 16:36:11 04/22/20 24 04/23/2024 COMP. METAB OLIC PANEL (14) albumin 4.3 g/dL 3.8-4. 8 normal Not Available [facility] ([facility]) [address] [place], [address], 04/23/2024 16:36:11 04/22/20 24 04/23/2024 COMP. METAB OLIC PANEL (14) globulin, total 2.2 g/dL 1.5-4. 5 Not Available [facility] ([facility]) [address] [place], [address], 04/23/2024 16:36:11 04/22/20 24 04/23/2024 COMP. METAB OLIC PANEL (14) bilirubin, total 0.3 mg/dL 0.0-1. 2 normal Not Available [facility] ([facility]) [address] [place], [address], 04/23/2024 16:36:11 04/22/20 24 04/23/2024 COMP. METAB OLIC PANEL (14) alkaline phosphatase 79 IU/L 44-121 normal Not Available [facility] ([facility]) [address] [place], [address], 04/23/2024 16:36:11 04/22/20 24 04/23/2024 COMP. METAB OLIC PANEL (14) AST (SGOT) 20 IU/L 0-40 normal Not Available [facility] ([facility]) [address] [place], [address], 04/23/2024 16:36:11 04/22/20 24 04/23/2024 COMP. METAB OLIC PANEL (14) ALT (SGPT) 25 IU/L 0-44 normal Not Available [facility] ([facility]) [address] [facility], [place], [address], 04/23/2024 16:36:11 04/22/20 24 04/23/2024 CBC, PLATE LET, NO DIFFE RENTI AL WBC 7.2 x10e3 /uL 3.4-10 .8 normal Not Available [facility] ([facility]) [address] [facility], [place], [address], 04/23/2024 16:36:12 04/22/20 24 04/23/2024 CBC, PLATE LET, NO DIFFE RENTI AL RBC 4.53 x10e6 /uL 4.14-5 .80 normal Not Available [facility] ([facility]) [address] [facility], [place], [address], 04/23/2024 16:36:12 04/22/20 24 04/23/2024 CBC, PLATE LET, NO DIFFE RENTI AL hemoglobin 13.8 g/dL 13.0-1 7.7 normal Not Available [facility] ([facility]) [address] [facility], [place], [address], 04/23/2024 16:36:12 04/22/20 24 04/23/2024 CBC, PLATE LET, NO DIFFE RENTI AL hematocrit 41.8 % 37.5-5 1.0 normal Not Available [facility] ([facility]) [address] [facility], [place], [address], 04/23/2024 16:36:12 04/22/2004/23/2024 CBC, PLATE LET, NO DIFFE RENTI AL MCV 92 fL 79-97 normal Not Available [facility] ([facility]) [address] [place], [address], 04/23/2024 16:36:12 04/22/20 24 04/23/2024 CBC, PLATE LET, NO DIFFE RENTI AL MCH 30.5 pg 26.6-3 3.0 normal Not Available [facility] ([facility]) [address] [facility], [place], [address], 04/23/2024 16:36:12 04/22/20 24 04/23/2024 CBC, PLATE LET, NO DIFFE RENTI AL MCHC 33.0 g/dL 31.5-3 5.7 normal Not Available [facility] ([facility]) [address] [place], [address], 04/23/2024 16:36:12 04/22/20 24 04/23/2024 CBC, PLATE LET, NO DIFFE RENTI AL RDW 12.9 % 11.6-1 5.4 Not Available [facility] ([facility]) [address] [facility], [place], [address], 04/23/2024 16:36:12 04/22/20 24 04/23/2024 CBC, PLATE LET, NO DIFFE RENTI AL platelets 254 x10e3 /uL 150-45 0 normal Not Available [facility] ([facility]) [address] [facility], [place], [address], 04/23/2024 16:36:12 04/22/20 24 04/23/2024 CBC, PLATE LET, NO DIFFE RENTI AL NRBC ROAD MACHINE RUNNER Not Available [facility] ([facility]) [address] [place], [address], 04/23/2024 16:36:12 04/22/20 24 04/23/2024 HEMOG LOBIN A1C hemoglobin A1C 8.2 % 4.8-5. 6 above high normal Predi abete s: 5.7 - 6.4 Diabe lu: >6.4 Glyce jaye contr ol for adult s with diabe lu: <7.0 Not Available [facility] ([facility]) [address] [place], [address], 04/23/2024 16:36:13 04/22/20 24 04/23/2024 C-PEP TIDE, SERUM C-peptide, serum 3.2 NG/mL 1.1-4. 4 C-Pep tide refer ence inter montse is for fasti ng patie nts. Not Available [facility] ([facility]) [address] [place], [address], 04/23/2024 16:36:14 04/22/20 24 04/23/2024 VITAM IN B12 vitamin B12 371 pg/mL 232-12 45 normal Not Available [facility] ([facility]) [address] [facility], [place], [address], 04/23/2024 16:36:14 09/02/20 24 09/02/2024 minh metry testi ng* Spirometry Not Available [facility] [employer] [facility], [facility] [address], [place], [address], 09/02/2024 09:36:03 09/09/20 24 09/10/2024 CBC WITH DIFFE RENTI AL/PL ATELE T WBC 7.6 x10e3 /uL 3.4-10 .8 normal Eff ectiv e Decem jose 2023 [place] 14738 5 WBC will be made* * non-o rdera ble as a stand -sam e order code. Not Available [facility] ([facility]) [address] [facility], [place], [address], 09/23/2024 03:35:26 09/09/20 24 09/10/2024 CBC WITH DIFFE RENTI AL/PL ATELE T RBC 4.72 x10e6 /uL 4.14-5 .80 normal Not Available [facility] ([facility]) [address] [place], [address], 09/23/2024 03:35:26 09/09/20 24 09/10/2024 CBC WITH DIFFE RENTI AL/PL ATELE T hemoglobin 13.7 g/dL 13.0-1 7.7 normal Not Available [facility] ([facility]) [address] [place], [address], 09/23/2024 03:35:26 09/09/20 24 09/10/2024 CBC WITH DIFFE RENTI AL/PL ATELE T hematocrit 43.7 % 37.5-5 1.0 normal Not Available [facility] ([facility]) [address] [facility], [place], [address], 09/23/2024 03:35:26 09/09/20 24 09/10/2024 CBC WITH DIFFE RENTI AL/PL ATELE T MCV 93 fL 79-97 normal Not Available [facility] ([facility]) [address] [place], [address], 09/23/2024 03:35:26 09/09/20 24 09/10/2024 CBC WITH DIFFE RENTI AL/PL ATELE T MCH 29.0 pg 26.6-3 3.0 normal Not Available [facility] ([facility]) [address] [place], [address], 09/23/2024 03:35:26 09/09/20 24 09/10/2024 CBC WITH DIFFE RENTI AL/PL ATELE T MCHC 31.4 g/dL 31.5-3 5.7 below low normal Not Available [facility] ([facility]) [address] [facility], [place], [address], 09/23/2024 03:35:26 09/09/20 24 09/10/2024 CBC WITH DIFFE RENTI AL/PL ATELE T RDW 13.0 % 11.6-1 5.4 Not Available [facility] ([facility]) [address] [place], [address], 09/23/2024 03:35:26 09/09/20 24 09/10/2024 CBC WITH DIFFE RENTI AL/PL ATELE T platelets 237 x10e3 /uL 150-45 0 normal Not Available [facility] ([facility]) [address] [place], [address], 09/23/2024 03:35:26 09/09/20 24 09/10/2024 CBC WITH DIFFE RENTI AL/PL ATELE T neutrophils 70 % not estab. normal Not Available [facility] ([facility]) [address] [facility], [place], [address], 09/23/2024 03:35:26 09/09/20 24 09/10/2024 CBC WITH DIFFE RENTI AL/PL ATELE T lymphs 20 % not estab. normal Not Available [facility] ([facility]) [address] [facility], [place], [address], 09/23/2024 03:35:26 09/09/20 24 09/10/2024 CBC WITH DIFFE RENTI AL/PL ATELE T monocytes 8 % not estab. normal Not Available [facility] ([facility]) [address] [facility], [place], [address], 09/23/2024 03:35:26 09/09/20 24 09/10/2024 CBC WITH DIFFE RENTI AL/PL ATELE T eos 2 % not estab. normal Not Available [facility] ([facility]) [address] [facility], [place], [address], 09/23/2024 03:35:26 09/09/20 24 09/10/2024 CBC WITH DIFFE RENTI AL/PL ATELE T basos 0 % not estab. normal Not Available [facility] ([facility]) [address] [facility], [place], [address], 09/23/2024 03:35:26 09/09/20 24 09/10/2024 CBC WITH DIFFE RENTI AL/PL ATELE T immature cells ROAD MACHINE RUNNER Not Available [facility] ([facility]) [address] [place], [address], 09/23/2024 03:35:26 09/09/20 24 09/10/2024 CBC WITH DIFFE RENTI AL/PL ATELE T neutrophils (absolute) 5.2 x10e3 /uL 1.4-7. 0 normal Not Available [facility] ([facility]) [address] [place], [address], 09/23/2024 03:35:26 09/09/20 24 09/10/2024 CBC WITH DIFFE RENTI AL/PL ATELE T lymphs (absolute) 1.5 x10e3 /uL 0.7-3. 1 normal Not Available [facility] ([facility]) [address] [place], [address], 09/23/2024 03:35:26 09/09/20 24 09/10/2024 CBC WITH DIFFE RENTI AL/PL ATELE T monocytes(ab solute) 0.6 x10e3 /uL 0.1-0. 9 normal Not Available [facility] ([facility]) [address] [place], [address], 09/23/2024 03:35:26 09/09/20 24 09/10/2024 CBC WITH DIFFE RENTI AL/PL ATELE T eos (absolute) 0.2 x10e3 /uL 0.0-0. 4 normal Not Available [facility] ([facility]) [address] [place], [address], 09/23/2024 03:35:26 09/09/20 24 09/10/2024 CBC WITH DIFFE RENTI AL/PL ATELE T baso (absolute) 0.0 x10e3 /uL 0.0-0. 2 normal Not Available [facility] ([facility]) [address] [place], [address], 09/23/2024 03:35:26 09/09/20 24 09/10/2024 CBC WITH DIFFE RENTI AL/PL ATELE T immature granulocytes 0 % not estab. Not Available [facility] ([facility]) [address] [place], [address], 09/23/2024 03:35:26 09/09/20 24 09/10/2024 CBC WITH DIFFE RENTI AL/PL ATELE T immature grans (abs) 0.0 x10e3 /uL 0.0-0. 1 Not Available [facility] ([facility]) [address] [facility], [place], [address], 09/23/2024 03:35:26 09/09/20 24 09/10/2024 CBC WITH DIFFE RENTI AL/PL ATELE T NRBC ROAD MACHINE RUNNER Not Available [facility] ([facility]) [address] [facility], [place], [address], 09/23/2024 03:35:26 09/09/20 24 09/10/2024 CBC WITH DIFFE RENTI AL/PL ATELE T hematology comments: ROAD MACHINE RUNNER Not Available [facility] ([facility]) [address] [facility], [place], [address], 09/23/2024 03:35:26 09/09/20 24 09/10/2024 COMP. METAB OLIC PANEL (14) glucose 182 mg/dL 70-99 above high normal Not Available [facility] ([facility]) [address] [facility], [place], [address], 09/23/2024 03:35:28 09/09/20 24 09/10/2024 COMP. METAB OLIC PANEL (14) BUN 25 mg/dL 8-27 normal Not Available [facility] ([facility]) [address] [facility], [place], [address], 09/23/2024 03:35:28 09/09/20 24 09/10/2024 COMP. METAB OLIC PANEL (14) creatinine 1.39 mg/dL 0.76-1 .27 above high normal Not Available [facility] ([facility]) [address] [facility], [place], [address], 09/23/2024 03:35:28 09/09/20 24 09/10/2024 COMP. METAB OLIC PANEL (14) eGFR 54 mL/mi n/1.7 3 >59 below low normal Not Available [facility] ([facility]) [address] [place], [address], 09/23/2024 03:35:28 09/09/20 24 09/10/2024 COMP. METAB OLIC PANEL (14) BUN/creatini ne ratio 18 10-24 normal Not Available [facility] ([facility]) [address] [place], [address], 09/23/2024 03:35:28 09/09/20 24 09/10/2024 COMP. METAB OLIC PANEL (14) sodium 137 mmol/ L 134-14 4 normal Not Available [facility] ([facility]) [address] [place], [address], 09/23/2024 03:35:28 09/09/20 24 09/10/2024 COMP. METAB OLIC PANEL (14) potassium 4.2 mmol/ L 3.5-5. 2 normal Not Available [facility] ([facility]) [address] [place], [address], 09/23/2024 03:35:28 09/09/20 24 09/10/2024 COMP. METAB OLIC PANEL (14) chloride 100 mmol/ L 96-106 normal Not Available [facility] ([facility]) [address] [place], [address], 09/23/2024 03:35:28 09/09/20 24 09/10/2024 COMP. METAB OLIC PANEL (14) carbon dioxide, total 22 mmol/ L 20-29 normal Not Available [facility] ([facility]) [address] [place], [address], 09/23/2024 03:35:28 09/09/20 24 09/10/2024 COMP. METAB OLIC PANEL (14) calcium 9.3 mg/dL 8.6-10 .2 normal Not Available [facility] ([facility]) [address] [place], [address], 09/23/2024 03:35:28 09/09/20 24 09/10/2024 COMP. METAB OLIC PANEL (14) protein, total 6.8 g/dL 6.0-8. 5 normal Not Available [facility] ([facility]) [address] [place], [address], 09/23/2024 03:35:28 09/09/20 24 09/10/2024 COMP. METAB OLIC PANEL (14) albumin 4.3 g/dL 3.8-4. 8 normal Not Available [facility] ([facility]) [address] [place], [address], 09/23/2024 03:35:28 09/09/20 24 09/10/2024 COMP. METAB OLIC PANEL (14) globulin, total 2.5 g/dL 1.5-4. 5 Not Available [facility] ([facility]) [address] [place], [address], 09/23/2024 03:35:28 09/09/20 24 09/10/2024 COMP. METAB OLIC PANEL (14) bilirubin, total 0.4 mg/dL 0.0-1. 2 normal Not Available [facility] ([facility]) [address] [place], [address], 09/23/2024 03:35:28 09/09/20 24 09/10/2024 COMP. METAB OLIC PANEL (14) alkaline phosphatase 79 IU/L 44-121 normal Not Available [facility] ([facility]) [address] [place], [address], 09/23/2024 03:35:28 09/09/20 24 09/10/2024 COMP. METAB OLIC PANEL (14) AST (SGOT) 17 IU/L 0-40 normal Not Available [facility] ([facility]) [address] [facility], [place], [address], 09/23/2024 03:35:28 09/09/20 24 09/10/2024 COMP. METAB OLIC PANEL (14) ALT (SGPT) 13 IU/L 0-44 normal Not Available [facility] ([facility]) [address] [facility], [place], [address], 09/23/2024 03:35:28 09/09/20 24 09/09/2024 LP+LD L DIREC T LDL calc comment: Commen t See LDL Comme nt if repor clifton. Not Available [facility] ([facility]) [address] [facility], [place], [address], 09/23/2024 03:35:29 09/09/20 24 09/10/2024 LP+LD L DIREC T cholesterol, total 138 mg/dL 100-19 9 normal Not Available [facility] ([facility]) [address] [facility], [place], [address], 09/23/2024 03:35:29 09/09/20 24 09/10/2024 LP+LD L DIREC T triglyceride s 176 mg/dL 0-149 above high normal Not Available [facility] ([facility]) [address] [facility], [place], [address], 09/23/2024 03:35:29 09/09/20 24 09/10/2024 LP+LD L DIREC T HDL cholesterol 33 mg/dL >39 below low normal Not Available [facility] ([facility]) [address] [facility], [place], [address], 09/23/2024 03:35:29 09/09/20 24 09/10/2024 LP+LD L DIREC T VLDL cholesterol irvin 30 mg/dL 5-40 Not Available [facility] ([facility]) [address] [place], [address], 09/23/2024 03:35:29 09/09/20 24 09/10/2024 LP+LD L DIREC T LDL chol calc (nih) 75 mg/dL 0-99 Not Available [facility] ([facility]) [address] [facility], [place], [address], 09/23/2024 03:35:29 09/09/20 24 09/10/2024 LP+LD L DIREC T LDL chol. (direct) 67 mg/dL 0-99 Not Available [facility] ([facility]) [address] [facility], [place], [address], 09/23/2024 03:35:29 09/09/20 24 09/10/2024 LP+LD L DIREC T LDL direct comment: ROAD MACHINE RUNNER Not Available [facility] ([facility]) [address] [facility], [place], [address], 09/23/2024 03:35:29 09/09/20 24 09/10/2024 ALBUM IN/CR EAT RATIO , RANDO M UR creatinine, urine 113.9 mg/dL not estab. normal Not Available [facility] ([facility]) [address] [place], [address], 09/23/2024 03:35:30 09/09/20 24 09/10/2024 ALBUM IN/CR EAT RATIO , RANDO M UR albumin, urine 181.7 ug/mL not estab. Not Available [facility] ([facility]) [address] [place], [address], 09/23/2024 03:35:30 09/09/20 24 09/10/2024 ALBUM IN/CR EAT RATIO , RANDO M UR alb/creat ratio 160 mg/g_ creat 0-29 above high normal Denice l: 0 - 29 Moder ately incre ased: 30 - 300 Sever baljit incre ased: >300 Not Available [facility] ([facility]) [address] [place], [address], 09/23/2024 03:35:30 09/09/20 24 09/22/2024 THYRO ID STIMU LATIN G HORMO NE TSH-icma 1.2 uu/mL Refer ence Range : Non-P regna nt Adult 0.450 -4.50 0 Not Available [facility] [address] [facility], [place], [address], 09/23/2024 03:35:31 09/09/20 24 09/10/2024 HEMOG LOBIN A1C hemoglobin A1C 8.5 % 4.8-5. 6 above high normal Predi abete s: 5.7 - 6.4 Diabe lu: >6.4 Glyce jaye contr ol for adult s with diabe lu: <7.0 Not Available [facility] ([facility]) [address] [place], [address], 09/23/2024 03:35:32 09/09/20 24 09/10/2024 C-PEP TIDE, SERUM C-peptide, serum 3.2 NG/mL 1.1-4. 4 C-Pep tide refer ence inter montse is for fasti ng patie nts. Not Available [facility] ([facility]) [address] [facility], [place], [address], 09/23/2024 03:35:32 09/09/20 24 09/10/2024 VITAM IN D, 25-HY DROXY vitamin D, 25-hydroxy 24.6 NG/mL 30.0-1 00.0 below low normal Vitam in D defic iency has been defin ed by the Insti tute of Medic ine and an Endoc rine Socie ty pract ice guide line as a level of serum 25-OH vitam in D less than 20 ng/mL (1,2) . The Endoc rine Socie ty went on to furth er defin e vitam in D insuf ficie ncy as a level betwe en 21 and 29 ng/mL (2). 1. IOM (Inst itute of Medic ine). 2010. Dieta ry refer ence intak es for calci um and D. Gonzalez barajas [place]: [facility] . 2. Rajiv flowers [place], Erendira gill [place], Damien off-F errar i CUEVAS, et al. Evalu ation , treat ment, and preve ntion of vitam in D defic iency : an Endoc rine Socie ty clini irvin pract ice guide line. JCEM. 2010; 96(7) :1911 -30. Not Available [facility] ([facility]) [address] [facility], [place], [address], 09/23/2024 03:35:33 09/09/20 24 09/10/2024 VITAM IN B12 vitamin B12 624 pg/mL 232-12 45 normal Not Available [facility] ([facility]) [address] [facility], [place], [address], 09/23/2024 03:35:34 10/30/19 24 10/30/2023 elect rocar diogr am No observ ation record ed. [facility], [facility] [address], [place], [address], 04/15/2024 19:18:00 10/30/19 24 10/30/2023 elect rocar diogr am No observ ation record ed. [facility], [facility] [address], [place], [address], 04/15/2024 19:18:00 04/15/20 24 04/16/2024 elect rocar diogr am No observ ation record ed. [facility], [facility] [address], [place], [address], 04/29/2024 10:17:18 04/16/20 24 04/15/2024 elect rocar diogr am No observ ation record ed. [facility], [facility] [address], [place], [address], 04/29/2024 10:17:18 04/17/20 24 04/16/2024 CT, angio gram, chest , w/wo contr ast No observ ation record ed. [facility] [address], [place], [address], 04/29/2024 10:17:18 05/07/20 24 05/06/2024 XR, cervi irvin spine , 2 or 3 view No observ ation record ed. [facility] [address], [place], [address], 09/02/2024 09:37:27 05/07/20 24 05/06/2024 XR, lumba r spine No observ ation record ed. [facility] [address], [place], [address], 09/02/2024 09:37:27 09/02/20 24 09/02/2024 minh metry testi ng* No observ ation record ed. pat[facility]io [facility], [facility] [address], [place], [address], 09/02/2024 16:49:14 Result Notes None recorded. Problems Name Problem SNOMED Code Status Onset Date Resolution Date Notes Provider Name and Address Organization Details Recorded Time Gastroeso phageal reflux disease without esophagit is 085491138 Active 2023 Juanita Rizo MD [address], [place], [address] , [facility] 4 19:23:28 Solitary nodule of lung 785647043 Active 2023 Juanita Rizo MD [address], [place], [address] , [facility] 4 23:51:45 Neck pain 59623159 Active 2023 Juanita Rizo MD [address], [place], [address] , [facility] 4 21:53:56 Benign prostatic hyperplas ia without outflow obstructi on 318765448 Active Not Available [facility] 4 03:55:26 Chronic renal failure 58436771 Completed 02/22/2017 Juanita Rizo MD [address], [place], [address] , [facility] 7 12:15:43 Diabetes mellitus 26343861 Active Not Available [facility] 4 03:55:27 Benign hypertens ion 95753078 Active Not Available [facility] 4 03:55:26 Ex-smoker 7796060 Active Not Available [facility] 4 03:55:27 Anxiety 92663197 Active Not Available [facility] 4 03:55:27 Gastroeso phageal reflux disease 617096592 Active Not Available [facility] 4 03:55:26 Glaucoma 65670594 Active Not Available [facility] 4 03:55:26 Hyperlipi demia 71804258 Completed 09/28/2018 Juanita Rizo MD [address], [place], [address] , [facility] 8 10:58:58 Cobalamin deficienc y 162580059 Active Not Available [facility] 4 03:55:26 Vitamin D deficienc y 80555205 Active Not Available [facility] 4 03:55:27 Mixed hyperlipi demia 751756449 Active 2017 Not Available [facility] 4 03:55:27 Pulmonary emphysema 72114719 Active 2018 Not Available [facility] 4 03:55:27 Bulla of lung 847642230 Active 2018 1980's Not Available [facility] 4 03:55:27 Diastolic dysfuncti on 9396417 Active 2019 grade 1 on ECHO Not Available [facility] 4 03:55:27 Kidney stone 43741017 Active 2019 Not Available [facility] 4 03:55:27 Low back pain 672270983 Active 2019 Not Available [facility] 4 03:55:27 COVID-19 921779381 Completed 202008/29/2021 Juanita Rizo MD [address] [facility] [address], [place], [address] , [facility] 16:51:13 Lesion of skin of face [id number] 6 Active 2020 Not Available [facility] 4 03:55:26 Diverticu losis of colon 293735215 Active 2020 Not Available [facility] 4 03:55:27 Gallstone 832891800 Active 2020 Not Available [facility] 4 03:55:26 Cyst of kidney 287918953 Active 2020 Not Available [facility] 4 03:55:27 Hyperkale nyasia 46892447 Active 2020 Not Available [facility] 4 03:55:26 Squamous cell carcinoma of skin 500123274 Active 2021 Not Available [facility] 4 03:55:26 Actinic keratosis 169600864 Active 2021 Not Available [facility] 4 03:55:26 History of SARS-CoV- 2 [id number] 1824467 Active 2021 Not Available [facility] 4 03:55:27 Long-term drug therapy Active 2021 Not Available [facility] 4 03:55:27 Body mass index 30+ - obesity 784937565 Active 2021 Not Available [facility] 4 03:55:26 Notes:Some problems listed i n Documents: #[id number], #[id number], #[id number], #[id number], #[id number] could not be added to this patient's chart. Please review these documents and add these problems to the patient's chart manually as needed. Problem Notes None recorded. Procedures Surgical History Date Name Laterality Status Provider Name and Address Organization Details Recorded Time 4 Diabetic Foot Exam completed Juanita Rizo MD [address], [place], [address], [facility] 09/02/2024 09:39:32 4 Diabetic Foot Exam completed Juanita Rizo MD [address], [place], [address], [facility] 10/30/2023 11:30:45 3 Diabetic Foot Exam completed Juanita Rizo MD [address], [place], [address], [facility] 07/31/2023 09:41:34 3 Diabetic Foot Exam completed Juaniat Rizo MD [address], [place], [address], [facility] 03/14/2023 09:34:20 3 Diabetic Foot Exam completed Juanita Rizo MD [address], [place], [address], [facility] 11/09/2022 15:09:58 2 Diabetic Foot Exam completed Juanita Rizo MD [address], [place], [address], [facility] 07/18/2022 09:18:43 2 Diabetic Foot Exam completed Juanita Rizo MD [address], [place], [address], [facility] 01/24/2022 15:35:37 1 Diabetic Foot Exam completed Juanita Rizo MD [address], [place], [address], [facility] 08/04/2021 11:20:54 1 Diabetic Foot Exam completed Juanita Rizo MD [address], [place], [address], [facility] 03/25/2021 10:02:11 1 Diabetic Foot Exam completed Juanita Rizo MD [address], [place], [address], [facility] 11/09/2020 09:54:53 0 Diabetic Foot Exam completed Juanita Rizo MD [address], [place], [address], [facility] 05/26/2020 15:56:46 9 Diabetic Foot Exam completed Juanita Rizo MD [address], [place], [address], [facility] 09/04/2019 12:01:41 9 Diabetic Foot Exam completed Juanita Rizo MD [address], [place], [address], [facility] 05/08/2019 09:51:34 9 Diabetic Foot Exam completed Juanita Rizo MD [address], [place], [address], [facility] 01/11/2019 12:27:59 8 Diabetic Foot Exam completed Juanita Rizo MD [address], [place], [address], [facility] 09/28/2018 11:02:41 8 Diabetic Foot Exam completed Juanita Rizo MD [address], [place], [address], [facility] 07/17/2018 15:49:41 Imaging Results Imaging Date Name Status LastModified by Organization Details LastModified Time 10/30/2023 electrocardiogram completed [facility], [facility] [address], [place], [address], 04/15/2024 19:18:00 10/30/2023 electrocardiogram [facility] [employer], [facility] [address], [place], [address], 04/15/2024 19:18:00 04/16/2024 electrocardiogram [facility], [facility] [address], [place], [address], 04/29/2024 10:17:18 04/15/2024 electrocardiogram completed [facility], [facility] [address], [place], [address], 04/29/2024 10:17:18 04/16/2024 CT, angiogram, chest, w/wo contrast completed [facility] [address], [place], [address], 04/29/2024 10:17:18 05/06/2024 XR, cervical spine, 2 or 3 view completed [facility] [address], [place], [address], 09/02/2024 09:37:27 05/06/2024 XR, lumbar spine completed [facility] [address], [place], [address], 09/02/2024 09:37:27 09/02/2024 spirometry testing* completed [facility], [facility] [address], [place], [address], 09/02/2024 16:49:14 Procedure Notes None recorded. Medical Equipment None Reported. Allergies Allergen ID Allergen Name Allergen Category Reaction Reaction Severity Criticality Documentation Date Start Date Code Code System Note Provider Name and Address Organization Details Recorded Time 2863 Amoxil medicatio n Not available Not available Not available 05/03/201663502 9 RxNorm Mary felix [facility] 6 09:04:44 2864 fish oils food,medi cation Not available Not available Not available 05/03/2016 4419 RxNorm Mary felix [facility] 6 09:04:50 6393 Januvia medicatio n nausea Not available Not available 09/05/2017 41361 6 RxNorm Juanita Rizo MD [address] [facility] [address], [place], [address], [facility] 7 16:35:37 6529 Product containin g penicilli n (product) medicatio n Not available Not available Not available 11/03/2017 72598 8001 SNOMED January [facility] 8 09:06:26 Medications Name Sig Start Date Stop Date Status Note LastModified by Organization Details LastModified Time latanoprost 0.005 % eye drops PLACE 1 DROP INTO BOTH EYES IN THE EVENING active Not Available Not Available No t Available pioglitazon e 15 mg tablet TK 1 T PO QD 05/18 completed Not Available Not Available Not Available atorvastati n 40 mg tablet TAKE 1 TABLET BY MOUTH EVERY NIGHT AT BEDTIME 10/01 completed Not Available Not Available Not Available metformin 500 mg tablet TAKE 1 TABLET BY MOUTH TWICE DAILY active Not Available Not Available No t Available doxycycline hyclate 100 mg capsule TAKE 1 CAPSULE BY MOUTH TWICE A DAY 05/11 completed Not Available Not Available Not Available clindamycin HCl 300 mg capsule Take 1 capsule every 8 hours by oral route. 03/22 completed Not Available Not Available Not Available Vitamin C 500 mg tablet Take 1 tablet every day by oral route. 01/24 completed Not Available Not Available Not Available cetirizine 10 mg tablet TAKE 1 TABLET BY MOUTH AT BEDTIME NEEDED active Not Available Not Available No t Available lisinopril 20 mg-hydrochl orothiazide 12.5 mg tablet TAKE 1 TABLET BY MOUTH EVERY DAY IN THE MORNING 04/15 completed Not Available Not Available Not Available metoprolol succinate ER 50 mg tablet,exte nded release 24 hr TAKE 1 TABLET BY MOUTH EVERY DAY IN THE MORNING active Not Available Not Available No t Available hydrocodone 5 mg-acetamin ophen 325 mg tablet 02/22 completed Not Available Not Available Not Available lisinopril 20 mg tablet TAKE 1 TABLET BY MOUTH EVERY DAY IN THE MORNING active Not Available Not Available No t Available prednisone 20 mg tablet Take 1 tablet every day by oral route. 10/09 completed Not Available Not Available Not Available sertraline 100 mg tablet TAKE 1 TABLET BY MOUTH EVERYDAY AT BEDTIME 12/19 completed Not Available Not Available Not Available BD Insulin Syringe 1 mL 25 gauge x 5/8 USE DIRECTED EVERY 4 WEEKS 06/26 completed Not Available Not Available Not Available Zithromax Z-Dusty 250 mg tablet TAKE 2 TABLETS (500 MG) BY ORAL ROUTE ONCE DAILY FOR 1 DAY THEN 1 TABLET (250 MG) BY ORAL ROUTE ONCE DAILY FOR 4 DAYS 04/08 completed Not Available Not Available Not Available clindamycin HCl 150 mg capsule 02/22 completed Not Available Not Available Not Available metronidazo le 500 mg tablet 09/04 completed Not Available Not Available Not Available sulfamethox azole 800 mg-trimetho prim 160 mg tablet 07/29 completed Not Available Not Available Not Available glimepiride 2 mg tablet TAKE 1 TABLET BY MOUTH DAILY IN THE MORNING active Not Available Not Available No t Available fenofibrate micronized 134 mg capsule TAKE 1 CAPSULE BY MOUTH EVERY DAY AT BEDTIME 09/04 completed Not Available Not Available Not Available glimepiride 1 mg tablet TAKE 1 TABLET BY MOUTH EVERY DAY 11/15 completed Not Available Not Available Not Available tamsulosin 0.4 mg capsule TAKE 1 CAPSULE BY MOUTH EVERY DAY active Not Available Not Available No t Available OneTouch Ultra Test strips Take 1 strip twice a day by miscell. route for 90 days. active Not Available Not Available No t Available baclofen 10 mg tablet TAKE 1 TABLET BY MOUTH TWICE DAILY active Not Available Not Available No t Available benzonatate 100 mg capsule TAKE 1 CAPSULE BY MOUTH THREE TIMES A DAY NEEDED 05/11 completed Not Available Not Available Not Available cephalexin 500 mg capsule 03/22 completed Not Available Not Available Not Available cyanocobala min (vit B-12) 1,000 mcg/mL injection solution ADMINISTE R 1 ML IN THE MUSCLE EVERY MONTH active Not Available Not Available No t Available metformin 1,000 mg tablet TAKE 1 TABLET BY MOUTH TWICE DAILY 04/15 completed Not Available Not Available Not Available BD Safety-Tod Tuberculin 1 mL 25 gauge x 5/8 syringe 03/25 completed Not Available Not Available Not Available omeprazole 20 mg capsule,del ayed release TAKE 1 CAPSULE BY MOUTH EVERY DAY IN THE MORNING active Not Available Not Available No t Available zinc 50 mg tablet Take 1 tablet every day by oral route. 01/24 completed Not Available Not Available Not Available ergocalcife rol (vitamin D2) 1,250 mcg (50,000 unit) capsule TAKE 1 CAPSULE BY MOUTH EVERY 2 WEEKS 2023 active Not Available Not Available Not Avai lable BD Tuberculin Syringe 1 mL 25 gauge x 5/8 USE DIRECTED EVERY 4 WEEKS 2021 active Not Available Not Available Not Avai lable Aspir-81 mg tablet,connie yed release Take 1 tablet every day by oral route. 2018 active Not Available Not Available Not Avai lable lisinopril 10 mg-hydrochl orothiazide 12.5 mg tablet TAKE 1 TABLET BY MOUTH EVERY MORNING 12/04 completed Not Available Not Available Not Available levofloxaci n 500 mg tablet Take 1 tablet every 24 hours by oral route. 07/11 completed Not Available Not Available Not Available methylpredn isolone 4 mg tablets in a dose pack Take 1 package by oral route as directed. 05/30 completed Not Available Not Available Not Available albuterol sulfate HFA 90 mcg/actuati on aerosol inhaler Inhale 2 puffs every 8 hours by inhalatio n route as needed. active Not Available Not Available No t Available pioglitazon e 30 mg tablet TAKE 1 TABLET BY MOUTH EVERY DAY active Not Available Not Available No t Available fluticasone propionate 50 mcg/actuati on nasal spray,suspe nsion USE 1 SPRAY INTO EACH NOSTRIL ONCE DAILY active Not Available Not Available No t Available finasteride 5 mg tablet TAKE 1 TABLET BY MOUTH EVERY DAY active Not Available Not Available No t Available Tylenol Extra Strength 500 mg tablet Take 1 tablet every 8 hours by oral route around the clock. 2023 active Not Available Not Available Not Avai lable escitalopra m 10 mg tablet TAKE 1 TABLET BY MOUTH EVERY DAY AT BEDTIME active Not Available Not Available No t Available Zetia 10 mg tablet Take 1 tablet every day by oral route. 10/01 completed Not Available Not Available Not Available rosuvastati n 40 mg tablet TAKE 1 TABLET BY MOUTH EVERY DAY active Not Available Not Available No t Available OneTouch UltraSoft Lancets active Not Available Not Available Not Available fenofibrate micronized 43 mg capsule TAKE 1 CAPSULE BY MOUTH EVERYDAY AT BEDTIME 12/08 completed Not Available Not Available Not Available omega-3 acid ethyl esters 1 gram capsule Take 1 capsule twice a day by oral route. 09/02 completed Not Available Not Available Not Available Januvia 50 mg tablet TAKE 1 TABLET BY MOUTH EVERY DAY IN THE MORNING 2024 active Not Available Not Available Not Avai lable Januvia 100 mg tablet TAKE 1 TABLET BY MOUTH EVERY DAY 09/05 completed Not Available Not Available Not Available Symbicort 80 mcg-4.5 mcg/actuati on HFA aerosol inhaler Inhale 2 puffs twice a day by inhalatio n route. 11/09 completed Not Available Not Available Not Available Mucinex DM 60 mg-1,200 mg tablet,exte nded release 12 hr Take 1 tablet twice a day by oral route. 10/08 completed Not Available Not Available Not Available fenofibrate 40 mg tablet Take 1 tablet every day by oral route at bedtime. 12/09 completed Not Available Not Available Not Available fenofibrate 54 mg tablet TAKE 1 TABLET BY MOUTH EVERYDAY AT BEDTIME 12/27 completed Not Available Not Available Not Available Onglyza 2.5 mg tablet TAKE 1 TABLET BY MOUTH EVERY DAY 09/28 completed Not Available Not Available Not Available fenofibric acid 105 mg tablet Take 1 tablet every day by oral route at bedtime. 09/27 completed Not Available Not Available Not Available Vitamin D3 125 mcg (5,000 unit) tablet Take 1 tablet every day by oral route. 12/01 completed Not Available Not Available Not Available Tradjenta 5 mg tablet Take 1 tablet every day by oral route. 03/22 completed Not Available Not Available Not Available Farxiga 10 mg tablet 2020 active Not Available Not Available Not Avai lable Farxiga 5 mg tablet TAKE 1 TABLET BY MOUTH EVERY DAY IN THE MORNING 12/01 completed Not Available Not Available Not Available OneTouch Ultra Blue Test Strip active Not Available Not Available N ot Available Lokelma 5 gram oral powder packet Take 1 packet every day by oral route. 01/24 completed Not Available Not Available Not Available Vitals Date Recorded Body height Heart rate Respiratory rate Body temperature Body mass index (BMI) Body weight Systolic blood pressure Diastolic blood pressure Provider Name and Address Organization Details Last Updated DateTime 3 170.18 cm 69 /min 16 /min 97.4 [degF] 31 kg/m2 83931.2 9 g 125 mm[Hg] 67 mm[Hg] Alem Saenz [facility] 3 09:09:12 Date Recorded Body height Body mass index (BMI) Body weight Body temperature Respiratory rate Heart rate Systolic blood pressure Diastolic blood pressure Provider Name and Address Organization Details Last Updated DateTime 4 170.18 cm 31.3 kg/m2 39746.4 7 g 98 [degF] 16 /min 76 /min 132 mm[Hg] 66 mm[Hg] Martha Malin [facility] 4 10:42:16 Date Recorded Body height Body mass index (BMI) Body weight Body temperature Respiratory rate Heart rate Systolic blood pressure Diastolic blood pressure Provider Name and Address Organization Details Last Updated DateTime 4 170.18 cm 30.2 kg/m2 30536.3 3 g 97.7 [degF] 16 /min 80 /min 105 mm[Hg] 57 mm[Hg] Martha Malin [facility] 4 18:59:31 Date Recorded Body height Body temperature Body mass index (BMI) Body weight Respiratory rate Heart rate Systolic blood pressure Diastolic blood pressure Provider Name and Address Organization Details Last Updated DateTime 4 170.18 cm 97.1 [degF] 29.9 kg/m2 96267.1 4 g 16 /min 62 /min 128 mm[Hg] 63 mm[Hg] [facility] 09:[facility]49 Date Recorded Body height Body mass index (BMI) Body weight Body temperature Heart rate Respiratory rate Systolic blood pressure Diastolic blood pressure Provider Name and Address Organization Details Last Updated DateTime 4 170.18 cm 31 kg/m2 74579.2 9 g 97.3 [degF] 65 /min 16 /min 138 mm[Hg] 74 mm[Hg] Martha Malin [facility] 4 09:16:06 Social History Question Answer Notes LastModified by Organizat ion Details LastModified Time Tobacco Smoking Status Former Smoker 2 PPD for 30 years Ariana Cordovaangelito felix [facility] 11/09/2020 09:24:19 Do You Have An Advance Directive? No [email or web address] Information n ot available 03/22/2018 What Is Your Level Of Alcohol Consumption? None [email or web address] Information not available 05/03/2016 What Is Your Level Of Caffeine Consumption? 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 No Information n ot available 05/18/2020 In The 14 Days Before Symptom Onset, Have You Had Close Contact With A Person Who Is Under Investigation For COVID-19 While That Person Was Ill? No Information not available 05/18/2020 Have You Been To An Area Known To Be High Risk For COVID-19? No Information not available 05/18/2020 Have You Directly Handled Bats, Rodents, Or Primates From Ebola Endemic Areas? No Information not available 11/09/2020 Have You Processed Blood Or Body Fluids From An Ebola Virus Disease Patient Without Appropriate PPE? No Information not available 11/09/2020 Have You Had Household Contact With An Ebola Virus Disease Patient? No Information not available 11/09/2020 Have You Had Direct Contact With A Body In An Ebola-affected Area Without Appropriate PPE? No Information not available 11/09/2020 Have You Had Percutaneous (e.g. Needle Stick) Or Mucous Membrane Exposure To Blood Or Body Fluids From An Ebola Virus Disease Patient? No Information not available 11/09/2020 Have You Had Other Close Contact With An Ebola Virus Disease Patient In Health Care Facilities Or Community Settings? No Information not available 11/09/2020 Do You Reside In Or Have You Traveled To An Area Where Ebola Virus Transmission Is Active? No Information not available 11/09/2020 Are There Any Guns Present In Your Home? No Information not available 11/09/2020 High Number Of Sexual Partners No Information not available 11/09/2020 History Of Inconsistent/no Condom Use No Information not available 11/09/2020 Live Alone Or With Others? With Others [email or web address] Information not available 05/03/2016 What Was The Date Of Your Most Recent Tobacco Screening? 07/31/2023 [email or web address] Information not available 07/31/2023 Mother With HIV? No Informat ion not available 11/09/2020 Performs Monthly Self-breast Exam? No Information no t available 11/09/2020 Seat Belts Used Routinely Yes Information not available 11/09/2020 Sexual Partner Has HIV? No Information not available 11/09/2020 Sexual Partner Uses IV Drugs? No Information not available 11/09/2020 Smoke Alarm In Home Yes Information not available 11/09/2020 Do You Use Sunscreen Routinely? No Information not available 11/09/2020 Have You Used IV Drugs? No Information not available 11/09/2020 Sex: Unknown Functional Status Question Answer Note LastModified by Organization D etails LastModified Time Are you able to care for yourself? Yes Information n ot available 11/09/2020 Mental Status None recorded. Family History Relationship Description Onset Age of this Age Resolved Age Notes LastModified by Organization Details LastModified Time Father Coronary arterioscler osis 73 [email or web address] Not available 2015 09:05:28 Father Epilepsy [email or web address] Not availabl e 05/03/2016 09:05:36 Medical History Condition Response Coronary Artery Disease N Other N Gout N Blood Diseases N Kidney Stones N Hyperthyroidism N Blood Transfusion N Breast Cancer N Lung Disease N Hypothyroidism N Depression N COPD N Defects or Inherited Disease N Developmental or Behavioral Disorders N Breast Problem N Difficulty Swallowing N Anesthesia Complications N Anxiety Disorder N Meniere's disease N Muscle, Joint, or Bone Problems N Obesity N Vision or Eye Problems N Arthritis N Infertility N Polyps N Mental Disorder N Cancer N Varicosities N Stroke N Endometriosis N Bladder or Kidney Problems N High Cholesterol N Liver Disease N Headaches N Fibromyalgia N Kidney Disease N Allergies/Hayfever N Heart Problems N Ear or Hearing Problems N Hospitalizations N Thyroid Problems N GI Problems N ADD/ADHD N Eating Disorder N Skin Problems N Anemia N MRSA exposure N Constipation N Mental Illness N Diabetes N Ovarian Cancer N Bedwetting N Seizures/Epilepsy N Tuberculosis N AIDS/HIV N Congestive Heart Failure (CHF) N Eczema N Abuse/Domestic Violence N Diverticulitis N Asthma N Reflux/GERD N Hepatitis N Heart Disease N Pulmonary Embolism N Chronic Ear Infections N Pre-Eclampsia N Hypertension N Chicken Pox N Autism Spectrum Disorder (ASD) N Osteoporosis N Thrombophilias N Immunizations Vaccine Type Date Status Note Provider Name and Address Organization Details Recorded Time Influenza, split virus, quadrivalent, preservative 015 completed Not Available [facility] 11/21/2023 03:55:27 pneumococcal polysaccharide PPV23 011 completed Not Available [facility] 11/21/2023 03:55:27 Td(adult) unspecified formulation 010 completed Not Available [facility] 11/21/2023 03:55:27 Td(adult) unspecified formulation 018 completed Not Available [facility] 11/21/2023 03:55:27 Influenza, high-dose, trivalent, PF 019 cancelled patient objection Not Available [facility] 11/09/2019 02:28:16 zoster recombinant 019 cancelled patient objection Not Available [facility] 11/09/2019 02:28:16 Pneumococcal conjugate PCV 13 019 cancelled patient objection Not Available [facility] 11/09/2019 02:28:14 Past Encounters Encounter ID Performer Location Encounter Start Date Encounter Closed Date Diagnosis/Indication Diagnosis SNOMED-CT Code Diagnosis ICD10 Code Diagnosis Note [id number] Juanita Rizo MD [facility], [facility] [address] [place] [address] 05/03/2016 10:35:20 05/03/2016 11:29:31 Benign hypertension 79741461 I10 Cobalamin deficiency 190 201015 E53.8 Gastroesop hageal reflux disease 064377588 K21.9 Benign pro static hyperplasia without outflow obstruction 976374268 N40.0 Vitamin D deficiency 347 23227 E55.9 Hyperlipidemia 27659492 E78.5 Diabetes mellitus 352487 09 E11.9 Anxiety 22023663 F41.9 Viral screening 04938897 4 Z11.59 Active or passive immunization 768439779 Z23 [id number] Juanita Rizo MD [facility], [facility] [address] [place] [address] 09/27/2016 12:08:42 09/27/2016 12:50:30 Benign hypertension 12399598 I10 Hyperlipidemia 56613730 E78.5 Cobalamin deficiency 190 230670 E53.8 Diabetes mellitus 355942 09 E11.9 Benign pro static hyperplasia without outflow obstruction 071993967 N40.0 Anxiety 91726550 F41.9 Vitamin D deficiency 347 99004 E55.9 Allergic r hinitis caused by pollen 89017239 J30.1 Screening procedure 2012 5006 Z13.9 Viral screening 13120059 4 Z11.59 Active or passive immunization 349471486 Z23 refuse flu [id number] Juanita Rizo MD [facility], [employer] [address] [place] [address] 12/12/2016 10:12:08 12/12/2016 11:18:05 Renewal of prescription 255369445 Z76.0 Diabetes mellitus 536259 09 E11.9 Hyperlipidemia 02376171 E78.5 Vitamin D deficiency 347 97621 E55.9 Screening procedure 20126 Z13.9 Active or passive immunization 346122264 Z23 refuse flu Screening for malignant neoplasm of colon 768262775 Z12.11 Glaucoma 65240200 H40.9 sees ophth every 3 months [id number] Juanita Rizo MD [employer], [facility] [address] [place] [address] 02/22/2017 11:29:43 02/22/2017 12:26:06 Benign hypertension 02467106 I10 Vitamin D deficiency 347 36303 E55.9 Diabetes mellitus 291823 09 E11.9 per pt had ophth 2 months ago Benign pro static hyperplasia without outflow obstruction 069816776 N40.0 Cobalamin deficiency 190 735975 E53.8 Screening for malignant neoplasm of colon 697424456 Z12.11 Hyperlipidemia 45203269 E78.5 Skin - angela ign mole and nevus 686321005 D22.9 Screening procedure 20126 Z13.9 Active or passive immunization 587774588 Z23 refuse flu [id number] Juanita Rizo MD [facility], [facility] [address] [place] [address] 05/30/2017 09:04:37 05/30/2017 09:55:50 Benign hypertension 75330512 I10 Benign pro static hyperplasia without outflow obstruction 380631136 N40.0 Vitamin D deficiency 347 17857 E55.9 Hyperlipidemia 25393166 E78.5 Diabetes mellitus 586188 09 E11.9 per pt had ophth 10/2016 Screening procedure 2012 5006 Z13.9 Screening for malignant neoplasm of colon 352010910 Z12.11 Active or passive immunization 999132948 Z23 refuse flu [id number] Juanita Rizo MD [facility], [facility] [address] [place] [address] 09/05/2017 15:44:27 09/05/2017 16:47:33 Benign hypertension 01140433 I10 Hyperlipidemia 76194708 E78.5 Diabetes mellitus 097933 09 E11.9 Vitamin D deficiency 347 24328 E55.9 Mixed anxi ety and depressive disorder 488664755 F41.8 Benign pro static hyperplasia without outflow obstruction 042438519 N40.0 Amputated finger 9885335 07 Z89.029 Screening for malignant neoplasm of colon 164740421 Z12.11 Active or passive immunization 573793385 Z23 refuse shots Screening procedure 2012 5006 Z13.[id number] [facility], [facility] [address] [place] [address] 11/03/2017 08:49:37 11/03/2017 10:10:58 Amputated finger 872665307 Z89.029 Diabetes mellitus 682820 09 E11.9 A1C increase to 9.1check BG TID and log -- send results in 2 weeks Chronic ki dney disease stage 3 750061469 N18.3 Hyperlipidemia 21846153 E78.5 Vitamin D deficiency 347 32271 E55.9 Benign hypertension 1072 5009 I10 Benign pro static hyperplasia without outflow obstruction 629077363 N40.0 Mixed anxi ety and depressive disorder 205275958 F41.8 Allergic r hinitis caused by pollen 97760932 J30.[address] [facility], [facility] [address] [place] [address] 11/16/2017 11:18:16 11/16/2017 12:41:56 Benign hypertension 85711335 I10 Hyperlipidemia 74671974 E78.5 Atorvastat in 40mg ---- may increase atorvastat in 80mg since zetia is too expensive although need to do research on generic pricesfeno fibrate 145Zetia was just added (increase in rice ) may need to switch --- as noted above Diabetes mellitus 968038 09 E11.9 Continue Metformin 500 twice daily (renal dosage)tra djenta continueds top Amaryl [id number] Juanita Rizo MD [facility], [facility] [address] [place] [address] 12/04/2017 12:12:14 12/04/2017 13:03:10 Diabetes mellitus 88725170 E11.9 BG 100-270 , cut down carb , helping a lot with weight Serum crea tinine above reference range 141352397 R79.89 Benign hypertension 1072 5009 I10 Pain in thumb 996405551 M79.644 Hyperlipidemia 74256845 E78.5 recheck FLP,AST,AL T 6 weeks after increased atorva [id number] Juanita Rizo MD [facility], [facility] [address] [place] [address] 03/22/2018 10:10:34 03/22/2018 11:02:38 Adult health examination 431055234 Z00.01 Benign hypertension 1072 5009 I10 good control Diabetes mellitus 837550 09 E11.9 BG 100-270 , cut down carb , helping a lot with weightlast ophth eval 10/2017 Hyperlipidemia 31454032 E78.5 last LDL 10/30/17 above goal , recheck Anxiety 53889926 F41.9 no SI , No HI Vitamin D deficiency 347 78372 E55.9 last level 10/30/17 , Benign pro static hyperplasia without outflow obstruction 557787249 N40.0 Glaucoma 45115921 H40.9 sees ophth every 3 months Ex-smoker 4896951 Z87.89 1 education Cobalamin deficiency 190 768254 E53.8 Screening for malignant neoplasm of colon 785647358 Z12.11 Active or passive immunization 093521354 Z23 refuse shots [id number] Juanita Rizo MD [facility], [facility] [address] [place] [address] 07/17/2018 14:46:35 07/17/2018 15:58:32 Benign hypertension 78814658 I10 good control Vitamin D deficiency 347 75773 E55.9 last level 10/30/17 , Diabetes mellitus 472819 09 E11.9 BG 100-270 , cut down carb , helping a lot with weightlast ophth eval 10/2017 Hyperlipidemia 78891880 E78.5 last LDL 10/30/17 above goal , recheck Screening for malignant neoplasm of colon 855404336 Z12.11 Active or passive immunization 626705527 Z23 refuse shots [id number] Juanita Rizo MD [facility], [facility] [address] [place] [address] 09/28/2018 10:18:04 09/28/2018 11:09:08 Mixed hyperlipidemia 882857064 E78.2 add zetia , recheck FLP 6-8 weeks Uncontroll ed type 2 diabetes mellitus 939433568 E11.65 BG TID , fax 2 weeks Benign hypertension 1072 5009 I10 good control Screening for malignant neoplasm of colon 676348059 Z12.11 Active or passive immunization 873629739 Z23 refuse shots [id number] Juanita Rizo MD [facility], [facility] [address] [place] [address] 01/11/2019 11:57:08 01/11/2019 12:32:53 Benign hypertension 31624520 I10 good control Cobalamin deficiency 190 209708 E53.8 Mixed hyperlipidemia 267 761263 E78.2 last LDL 01/04/19 @ goal Diabetes mellitus 042955 09 E11.9 BG 80-160 , cut down carb , helping a lot with weightlast ophth eval 12/2018 per pt Body mass index 25-29 - overweight 156686929 Z68.29 lost few LBs Screening for malignant neoplasm of colon 496955951 Z12.11 refuse c scope OR cologaurd Active or passive immunization 315207214 Z23 refuse shots Sinusitis 40802941 J32.9 [id number] Juanita Rizo MD [facility], [facility] [address] [place] [address] 05/08/2019 09:19:31 05/08/2019 10:06:37 Adult health examination 781457694 Z00.01 Benign hypertension 1072 5009 I10 good control Cobalamin deficiency 190 715323 E53.8 Gastroesop hageal reflux disease 970790029 K21.9 stable Benign pro static hyperplasia without outflow obstruction 919048147 N40.0 asymptomat ic Glaucoma 88876036 H40.9 sees ophth every 3 months Mixed hyperlipidemia 267 759519 E78.2 last LDL 01/04/19 @ goal Vitamin D deficiency 347 06654 E55.9 last level 10/30/17 , Anxiety 72232984 F41.9 no SI , No HI Diabetes mellitus 660951 09 E11.9 BG 80-160 , cut down carb , helping a lot with weightlast ophth eval 12/2018 per pt Ex-smoker 5874861 Z87.89 1 education Diastolic dysfunction 35 20772 I50.30 mild ,grade 1 on ECHO 09/22/15 Screening for malignant neoplasm of colon 020271180 Z12.11 refuse c scope OR cologaurd Active or passive immunization 260017140 Z23 refuse shots [id number] KAMERON GAINES APN [facility], [facility] [address] [place] [address] 06/28/2019 09:50:34 06/28/2019 10:45:17 Congestion of nasal sinus 33680083 R09.81 Cough 89545694 R05 Hyperkalemia 59234677 E8 7.5 pt aware to repeat K in 1 weekpt reports he has been eating a lot of grapefruit and drinking tomato juice - [id number] Juanita Rizo MD [facility], [facility] [address] [place] [address] 09/04/2019 11:36:12 09/04/2019 12:08:51 Benign hypertension 52515969 I10 good control Diabetes mellitus 726076 09 E11.9 BG 80-160 , cut down carb , helping a lot with weightlast ophth eval 12/2018 per pt Mixed hyperlipidemia 267 837440 E78.2 last LDL 01/04/19 @ goal Vitamin D deficiency 347 59472 E55.9 last level 10/30/17 , Cobalamin deficiency 190 612882 E53.8 Screening for malignant neoplasm of colon 361836921 Z12.11 refuse c scope OR cologaurd Active or passive immunization 404416675 Z23 refuse shots [id number] Juanita Rizo MD [employer], [employer] [address] [place] [address] 09/24/2019 11:55:57 09/24/2019 12:20:15 Benign hypertension 21334997 I10 good control Diabetes mellitus 138858 09 E11.9 BG 80-160 , cut down carb , helping a lot with weightlast ophth eval 12/2018 per pt Body mass index 25-29 - overweight 304734962 Z68.29 lost 6 LBs Mixed hyperlipidemia 267 669466 E78.2 last LDL 01/04/19 @ goal Cough 08038167 R05 cont' Abx , add proair PRN , add 3 days prednisone , check CXRRTC 2-3 days if not betterPO 97% on RA [id number] KAMERON GAINES APN [facility] [address] [place] [address] 10/09/2019 11:13:32 10/09/2019 12:11:19 Cough 36389179 R05 history of COPD 80s --- emphysema bolus with tension pneumothor axcough waking and waning x 2 [id number] 0 - doxy -- min ardnxp84/3 - prednisone completed - states if helped - CXR completed todayecho scheduled tomorrow -symptoms for most part improves with activity and worsens at rest -states will wake up sob or [id number] 98% Orthopnea 38550535 R06.0 1 echo scheduled tomorrow - [id number] Juanita Rizo MD [facility], [employer] [address] [place] [address] 05/18/2020 17:20:24 05/18/2020 18:29:04 Hydronephrosis 26007684 N13.30 seen urology , will get consult note Kidney stone 95158715 N2 0.0 Lt Diabetes mellitus 489185 09 E11.9 BG 80-160 , cut down carb , helping a lot with weightlast ophth eval 12/2018 per pt Serum crea tinine above reference range 099380075 R79.[id number] [facility], [facility] [address] [place] [address] 05/26/2020 15:25:20 05/26/2020 16:06:04 Benign hypertension 17560410 I10 good control Diabetes mellitus 547722 09 E11.9 BG 80-160 , cut down carb , helping a lot with weightlast ophth eval 12/2018 per pt Cobalamin deficiency 190 284742 E53.8 Kidney stone 24414360 N2 0.0 Lt , seen urology , having out next week Mixed hyperlipidemia 267 151110 E78.2 last LDL 01/04/19 @ goal Vitamin D deficiency 347 13948 E55.9 last level 10/30/17 , Adult heal th examination 077895909 Z00.01 Glaucoma 76538478 H40.9 sees ophth every 3 months Gastroesop hageal reflux disease 879127423 K21.9 stable Ex-smoker 5503914 Z87.89 1 education Diastolic dysfunction 35 13714 I50.30 mild ,grade 1 on ECHO 09/22/15 Body mass index 25-29 - overweight 537424992 Z68.29 lost 6 LBs Benign pro static hyperplasia without outflow obstruction 595687371 N40.0 asymptomat ic Screening for malignant neoplasm of colon 506035184 Z12.11 refuse c scope OR cologaurd Active or passive immunization 881525892 Z23 refuse shots Low back pain 278463944 M54.5 [id number] Juanita Rizo MD [facility], [facility] [address] [place] [address] 11/09/2020 09:00:06 11/09/2020 10:05:44 Benign hypertension 53175051 I10 good controllas t EKG 05/26/20 Body mass index 30+ - obesity 689093958 Z68.30 education Diabetes mellitus 299656 09 E11.9 BG 80-160 , cut down carblast ophth eval 12/2018 per pt Cobalamin deficiency 190 203198 E53.8 Kidney stone 74207946 N2 0.0 Lt ,sees urology on reg basislast CT abd 05/12/20 Mixed hyperlipidemia 267 287448 E78.2 last LDL 06/17/20 @ goal Vitamin D deficiency 347 44212 E55.9 last level 06/17/20 Screening for malignant neoplasm of colon 760806899 Z12.11 refuse c scope OR cologaurd Active or passive immunization 823422104 Z23 refuse shots Pulmonary emphysema 8743 3001 J43.9 last PFT 09/2019 [id number] Juanita Rizo MD [facility], [facility] [address] [place] [address] 03/25/2021 09:14:51 03/25/2021 10:07:46 Diabetes mellitus 86666505 E11.9 BG 80-160 , cut down carbs last ophth eval 10/2020 per pt Mixed hyperlipidemia 267 870726 E78.2 last LDL 06/17/20 @ goal Benign hypertension 1072 5009 I10 good controllas t EKG 05/26/20 Body mass index 25-29 - overweight 677568397 Z68.29 education Vitamin D deficiency 347 96429 E55.9 last level 11/30/20 Screening for malignant neoplasm of colon 329401076 Z12.11 refuse c scope OR cologaurd Active or passive immunization 241233733 Z23 refuse shots Cobalamin deficiency 190 846253 E53.8 Anxiety 33478032 F41.9 no SI , No HI Benign pro static hyperplasia without outflow obstruction 232980985 N40.0 asymptomat ic [id number] Juanita Rizo MD [facility], [facility] [address] [place] [address] 08/04/2021 10:42:01 08/04/2021 11:41:57 Dyspnea 980598989 R06.00 started after COVID 06/2021 Diabetes mellitus 671808 09 E11.9 BG 80-160 , cut down carbs last ophth eval 04/2021 per pt Mixed hyperlipidemia 267 620439 E78.2 last LDL 06/17/20 @ goal Vitamin D deficiency 347 46004 E55.9 last level 11/30/20 Cobalamin deficiency 190 509281 E53.8 Benign hypertension 1072 5009 I10 good controllas t EKG 05/26/20 Screening for malignant neoplasm of colon 957515624 Z12.11 refuse c scope OR cologaurd Active or passive immunization 780285496 Z23 refuse shots Lesion of skin of face 3881961457 06 L98.9 Body mass index 25-29 - overweight 199282066 Z68.29 educationl ost another 10 LBs [id number] Juanita Rizo MD [employer] [address] [place] [address] 01/24/2022 14:52:36 01/24/2022 15:51:08 Benign hypertension 46285213 I10 good controllas t EKG 08/04/21 Low back pain 321581704 M54.50 Body mass index 25-29 - overweight 214297278 Z68.29 educationl ost another 10 LBs Cobalamin deficiency 190 788329 E53.8 last levl 09/2021 Diabetes mellitus 935156 09 E11.9 BG 80-160 , cut down carbs last ophth eval 01/06/2022 per pt Mixed hyperlipidemia 267 093548 E78.2 last LDL 09/27/21 @ goal Vitamin D deficiency 347 21043 E55.9 last level 09/27/21 Screening for malignant neoplasm of colon 170212140 Z12.11 refuse c scope OR cologaurd Active or passive immunization 877467369 Z23 refuse shots Advance di rective discussed with patient 809719216 Z71.89 education Adult heal th examination 858825456 Z00.01 Benign pro static hyperplasia without outflow obstruction 124827481 N40.0 asymptomat ic Ex-smoker 2865773 Z87.89 1 educationq uit 2000 Gallstone 949883925 K80. 20 asymptomat ic Gastroesop hageal reflux disease 812116259 K21.9 stable Kidney stone 24493485 N2 0.0 Lt ,sees urology on reg basislast CT abd 08/27/21 Squamous c ell carcinoma of skin 992975323 C44.92 per derm note 10/2021 Actinic keratosis 035621 007 L57.0 seen derm History of SARS-CoV-2 29 66185710 64029730 Z86.16 tested +ve 06/2021 [id number] Juanita Rizo MD [employer], [facility] [address] [place] [address] 07/18/2022 08:50:11 07/18/2022 09:28:56 Benign hypertension 44499811 I10 increase lisinopril BP 2 weekslast EKG 08/04/21 Diabetes mellitus 615801 09 E11.9 BG 80-160 , cut down carbs last ophth eval 01/06/2022 per pt Kidney stone 37325542 N2 0.0 Lt ,sees urology on reg basislast CT abd 08/27/21 Mixed hyperlipidemia 267 437761 E78.2 last LDL 09/27/21 @ goal Vitamin D deficiency 347 13085 E55.9 last level 09/27/21 Screening for malignant neoplasm of colon 404800231 Z12.11 refuse c scope OR cologaurd Active or passive immunization 577482458 Z23 refuse shots Long-term drug therapy 401624451 Z79.899 metformin Body mass index 30+ - obesity 250457269 Z68.30 education [id number] Juanita Rizo MD [facility], [facility] [address] [place] [address] 11/09/2022 14:07:53 11/09/2022 15:24:12 Diabetes mellitus 85642857 E11.9 BG 80-160 , cut down carbs last ophth eval 01/06/2022 per pt Benign hypertension 1072 5009 I10 BP 2 weekslast EKG 08/04/21 Body mass index 30+ - obesity 966949328 Z68.30 education Cobalamin deficiency 190 517775 E53.8 last levl 07/18/22 Long-term drug therapy 153405673 Z79.899 metformin Mixed hyperlipidemia 267 663147 E78.2 last LDL 07/18/22 @ goal Vitamin D deficiency 347 77109 E55.9 last level 07/18/22 Screening for malignant neoplasm of colon 174365673 Z12.11 refuse c scope OR cologaurd Active or passive immunization 970830129 Z23 refuse shots Advance di rective discussed with patient 185758864 Z71.89 education [id number] Juanita Rizo MD [facility], [facility] [address] [place] [address] 03/14/2023 08:51:53 03/14/2023 09:44:00 Adult health examination 089068119 Z00.01 Benign hypertension 1072 5009 I10 BP 2 weekslast EKG 11/09/22 Body mass index 30+ - obesity 717777321 Z68.30 education Benign pro static hyperplasia without outflow obstruction 149877896 N40.0 asymptomat ic Cobalamin deficiency 190 770775 E53.8 last levl 07/18/22 Diabetes mellitus 289176 09 E11.9 BG 80-160 , cut down carbs last ophth eval 11/2022 per pt Cyst of kidney 305508186 N28.1 asymptomat ic Diastolic dysfunction 35 44451 I50.30 mild ,grade 1 on ECHO 09/22/15 Diverticul osis of colon 217025144 K57.30 asymptomat ic Ex-smoker 5755664 Z87.89 1 educationq uit 2000 Gallstone 999090550 K80. 20 asymptomat ic Actinic keratosis 215336 007 L57.0 seen derm Gastroesop hageal reflux disease 448059037 K21.9 stable Glaucoma 73510280 H40.9 sees ophth every 3 months History of SARS-CoV-2 29 54096019 37766578 Z86.16 tested +ve 06/2021 Kidney stone 17840863 N2 0.0 Lt ,sees urology on reg basislast CT abd 08/27/21 Long-term drug therapy 590254622 Z79.899 metformin Mixed hyperlipidemia 267 715062 E78.2 last LDL 07/18/22 @ goal Low back pain 719342019 M54.50 Squamous c ell carcinoma of skin 839433213 C44.92 per derm note 10/2021 Vitamin D deficiency 347 12885 E55.9 last level 07/18/22 Screening for malignant neoplasm of colon 209961932 Z12.11 refuse c scope OR cologaurd Active or passive immunization 559343521 Z23 refuse shots [id number] Juanita Rizo MD [facility] [address] [place] [address] 07/31/2023 08:46:59 07/31/2023 09:54:35 Preoperative cardiovascular examination 378863930 Z01.810 OK for cataract surgery under MAChold Amaryl , Actos the day of the surgery Benign hypertension 1072 5009 I10 BP 2 weekslast EKG 11/09/22 Body mass index 30+ - obesity 057291793 Z68.30 education Diabetes mellitus 311843 09 E11.9 BG 80-160 , cut down carbs last ophth eval 11/2022 per pt Kidney stone 70807509 N2 0.0 Lt ,sees urology on reg basislast CT abd 08/27/21 Mixed hyperlipidemia 267 873215 E78.2 last LDL 01/13/23 @ goal Screening for malignant neoplasm of colon 166095810 Z12.11 refuse c scope OR cologaurd Active or passive immunization 227536702 Z23 refuse shots Vitamin D deficiency 347 82449 E55.9 last level 07/18/22 [id number] Juanita Rizo MD [facility], [facility] [address] [place] [address] 10/30/2023 10:13:30 10/30/2023 11:40:53 Benign hypertension 94634107 I10 BP 2 weekslast EKG 11/09/22 Benign pro static hyperplasia without outflow obstruction 807910254 N40.0 asymptomat ic Body mass index 30+ - obesity 324752858 Z68.30 education Cobalamin deficiency 190 060844 E53.8 last levl 03/15/23 Bulla of lung 114969184 J43.9 Diabetes mellitus 276875 09 E11.9 BG 80-160 , cut down carbs last ophth eval 09/2023 per pt Ex-smoker 8852467 Z87.89 1 educationq uit 2000 Kidney stone 89192959 N2 0.0 Lt ,sees urology on reg basislast CT abd 08/27/21 Long-term drug therapy 566473600 Z79.899 metformin Mixed hyperlipidemia 267 314242 E78.2 last LDL 01/13/23 @ goal Pulmonary emphysema 8743 3001 J43.9 last PFT 09/2019 Screening for malignant neoplasm of colon 225291793 Z12.11 refuse c scope OR cologaurd Active or passive immunization 677621123 Z23 refuse shots Advance di rective discussed with patient 143945991 Z71.89 education [id number] Juanita Rizo MD [facility], [facility] [address] [place] [address] 04/15/2024 18:47:24 04/16/2024 19:45:54 Benign hypertension 05288444 I10 D/C HCTZBP 2 weekslast EKG 11/09/22 Atypical chest pain 1025 82090 R07.89 interscapu lar between shoulder bladeswill check EKG and CTA Body mass index 30+ - obesity 748798879 Z68.30 education Cobalamin deficiency 190 653401 E53.8 last levl 11/21/23 Long-term drug therapy 815331347 Z79.899 metformin Diabetes mellitus 285994 09 E11.9 BG 80-160 , cut down carbs last ophth eval 09/2023 per ptlast GIOVANI 11/21/23dec rease metformin to 500 BID 2ry to ^ Cr Screening for malignant neoplasm of colon 210590475 Z12.11 refuse c scope OR cologaurd Active or passive immunization 396204835 Z23 refuse shots Gastroesop hageal reflux disease without esophagitis 925660109 K21.9 [id number] Juanita Rizo MD [facility], [facility] [address] [place] [address] 04/29/2024 09:42:56 04/29/2024 10:28:02 Neck pain 45812787 M54.2 Low back pain 538426395 M54.50 Uncontroll ed type 2 diabetes mellitus 188057832 E11.65 BG TID , fax 2 weeks [id number] Juanita Rizo MD [facility], [facility] [address] [place] [address] 09/02/2024 09:08:39 09/02/2024 09:52:20 Adult health examination 159889376 Z00.01 Benign hypertension 1072 5009 I10 better controlBP 2 weekslast EKG 04/16/24 Benign pro static hyperplasia without outflow obstruction 961816972 N40.0 asymptomat ic Body mass index 30+ - obesity 519121189 Z68.30 education Bulla of lung 228096094 J43.[address] 04/16/24 Cobalamin deficiency 190 239866 E53.8 last levl 11/21/23 Cyst of kidney 166671408 N28.1 asymptomat ic Diabetes mellitus 560933 09 E11.9 BG 80-160 , cut down carbs last ophth eval 08/23/24 per ptlast GIOVANI 11/21/23dec rease metformin to 500 BID 2ry to ^ Cr Diastolic dysfunction 35 89079 I50.30 mild ,grade 1 on ECHO 09/22/15 Diverticul osis of colon 095104647 K57.30 asymptomat ic Ex-smoker 6455876 Z87.89 1 educationq uit 2000 Gallstone 396882419 K80. 20 asymptomat ic Gastroesop hageal reflux disease 803451718 K21.9 stable Glaucoma 81949012 H40.9 sees ophth every 3 months History of SARS-CoV-2 29 65316485 96620567 Z86.16 tested +ve 06/2021 Hyperkalemia 76486493 E8 7.5 recheck Kidney stone 45169756 N2 0.0 Lt ,sees urology on reg basislast CT abd 08/27/21 Lesion of skin of face 6069753653 06 L98.9 sees derm on reg basis yearly Long-term drug therapy 148411277 Z79.899 metformin Low back pain 412080254 M54.50 stable Mixed hyperlipidemia 267 402801 E78.2 last LDL 11/21/23 @ goal Neck pain 78661091 M54.2 stable Squamous c ell carcinoma of skin 781988332 C44.92 per derm note 10/2021 Solitary n odule of lung 484463710 R91.1 on CTA chest 04/16/24 Pulmonary emphysema 8743 3001 J43.9 last PFT 09/2019 Vitamin D deficiency 347 25475 E55.9 last level 07/18/22 Screening for malignant neoplasm of colon 809002190 Z12.11 refuse c scope OR cologaurd Active or passive immunization 187740584 Z23 refuse shots Advance di rective discussed with patient 461570015 Z71.89 education Health Concerns Section Related Observation LastModified by Organization Detai ls LastModified Time None Recorded Concern Status LastModified by Organization Details LastModified Time None Recorded Advance Directives Directive N: Payers Encounter Date Sequence Insurance Name Policy Number Policy Barone Covered Member ID Barone Member ID Guarantor Name 07/31/2023 1 [employer] (MEDICARE REPLACEMENT PPO) [id number] Baldo Pozo [id number] Baldo Pozo 10/30/2023 1 [facility] (MEDICARE REPLACEMENT/AD VANTAGE - PPO) [id number] Baldo Pozo [id number] Baldo Pozo 04/15/2024 1 [facility] (MEDICARE REPLACEMENT/AD VANTAGE - PPO) [id number] Baldo Vanceoln [id number] Baldo Vanceoln 04/29/2024 1 [facility] (MEDICARE REPLACEMENT/AD VANTAGE - PPO) [id number] Baldo Vanceoln [id number] Baldo Vanceoln 09/02/2024 1 [facility] (MEDICARE REPLACEMENT/AD VANTAGE - PPO) [id number] Baldo Pozo [id number] Baldo Pozo Notes Date Note Type Note Provider Name and Address Organization Details Recorded Time 07/31/2023 text/html Hypertension F/UReported bypatient.Medications: taking medications as directed; no side effects from medication Lifestyle:regular exercise; limiting/avoiding salt; compliant with low salt diet Associated Symptoms:no dizziness; no lightheadedness; no chest pain; no shortness of breath; no palpitations; no edema; no calf pain with exertion; no headacheMedicare Annual Wellness VisitReported bypatient.Falls Risk Assessment:no frequent falls while walking; no fall in the past year; no fall since last visit; no dizziness/vertigo did not see endo , did not do cologaurdhaving cataract 09/06/23 Juanita Rizo MD [address] [facility] [address], [place], [address], [facility] 07/31/2023 09:45:26 10/30/2023 text/html Hypertension F/UReported bypatient.Medications: taking medications as directed; no side effects from medication Lifestyle:regular exercise; limiting/avoiding salt; compliant with low salt diet Associated Symptoms:no dizziness; no lightheadedness; no chest pain; no shortness of breath; no palpitations; no edema; no calf pain with exertion; no headache Juanita Rizo MD [address] [facility] [address], [place], [address], [facility] 10/30/2023 11:34:11 04/15/2024 text/html Hypertension F/UReported bypatient.Medications: taking medications as directed; no side effects from medication Lifestyle:regular exercise; limiting/avoiding salt; compliant with low salt diet Associated Symptoms:no dizziness; no lightheadedness; no chest pain; no shortness of breath; no palpitations; no edema; no calf pain with exertion; no headache upper back pain , in between shoulders blades Juanita Rizo MD [address], [place], [address], [facility] 04/15/2024 19:28:46 04/29/2024 text/html Hypertension F/UReported bypatient.Medications: taking medications as directed; no side effects from medication Lifestyle:regular exercise; limiting/avoiding salt; compliant with low salt diet Associated Symptoms:no dizziness; no lightheadedness; no chest pain; no shortness of breath; no palpitations; no edema; no calf pain with exertion; no headache neck and Low back pain on and off for a year , No injury , no red flags Juanita Rizo MD [address], [place], [address], [facility] 04/29/2024 10:24:36 09/02/2024 text/html Hypertension F/UReported bypatient.Medications: taking medications as directed; no side effects from medication Lifestyle:regular exercise; limiting/avoiding salt; compliant with low salt diet Associated Symptoms:no dizziness; no lightheadedness; no chest pain; no shortness of breath; no palpitations; no edema; no calf pain with exertion; no headacheMedicare Annual Wellness VisitReported bypatient.Diet and Nutrition:healthy diet Fracture Risk:no history of fractures; no recent explained fracture; no sudden unexplained fractures; no previous musculoskeletal injuries Physical Activity:recent increase in physical activity; good physical condition; discussed exercise habits Depression Risk:never feels sad, empty, or tearful; no loss of interest in activities; no significant changes in weight; no sleep disturbances or insomnia; no agitation; no loss of energy; no feelings of worthlessness or guilt; no thoughts of suicide; no history of depression; no history of mood disorders Orientation:no disorientation to time; no disorientation to date; no disorientation to place Concentration and Memory:no decreased concentrating ability; no memory lapses or loss; does not forget words Speech/Motor difficulties:no speech difficulties; no difficulty expressing formulated concepts; no difficulty with fine manipulative tasks; no difficulty writing/copying; no slowed reaction time; does not knock things over when trying to pick them up Hearing:no loss of hearing Vision:no vision problems Activities of Daily Living:able to bathe with limited or no assistance; able to contol urination and bowels; able to dress with limited or no assistance; able to feed self with limited or no assistance; able to get out of chair or bed with limited or no assistance; able to groom with limited or no assistance; able to toilet with limited or no assistance Instrumental Activities of Daily Living:able to do house work with limited or no assistance; able to grocery shop with limited or no assistance; able to manage medications with limited or no assistance; able to manage money with limited or no assistance; able to prepare meals with limited or no assistance; able to use the phone with limited or no assistance Falls Risk Assessment:no frequent falls while walking; no fall in the past year; no fall since last visit; no dizziness/vertigo Home Safety:use of seatbelts; no vision or hearing loss while driving Juanita Rizo MD [address] [place] [address] [address], [place], [address], [facility] 09/02/2024 09:42:49
--- OUTSIDE RECORDS SUMMARY | 2025-01-30 10:46 | XMS_ITS | Encounter Summary ---
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 Role Phone Unavailable Primary Care Provider Unavailabl e Encounter Details Date Type Department Care Team (Late st Contact Info) Description 12/17/2021 Lab Requisition [facility] D[facility] [address] [facility] [place] [id number] Fredrick Juarez MD [address] [place] [address] Social History Tobacco Use Types Packs/Day Years Used Date Smoking Tobacco: Never Assessed Sex and Gender Information Value Date Recorded Sex Assigned at Not on file Gender Identity Not on file Sexual Orientation Not on file documented as of this encounter Plan of Treatment Not on file documented as of this encounter Procedures Procedure Name Priority Date/Time Associated Diagnosis Comments DERMATOPATHOLOGY Routine 12/17/2021 12:0 0 AM CERTIFIED FAMILY MEDIATOR documented in this encounter Results * DERMATOPATHOLOGY (12/17/2021 12:00 AM CERTIFIED FAMILY MEDIATOR) Case Report Dermatopathology Report Case: [id number] Authorizing Provider: Fredrick Juarez MD Collected: 12/17/2021 12:00 AM Ordering Location: [facility] D[facility] Lab Received: 12/17/2021 02:18 PM Pathologist: Andie Kim MD Specimen: Skin, right cheek 12:11 PM CERTIFIED FAMILY MEDIATOR DERMATOPATHOLOGY LABORATORY Final Diagnosis Specimen A. 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 Check margins. 2 12:11 PM [facility] DERMATOPATHOLOGY LABORATORY Gross Description Specimen A: Received is one formalin filled container labeled with the patient's name and designated right cheek. The specimen consists of a non-oriented ellipse of skin measuring [id number]. The epidermal surface is unremarkable. The margin is inked green. The 12 o'clock and 6 o'clock tips are submitted in cassette 1. The remainder of the ellipse is serially sectioned and submitted in cassettes 2-3. Jar 0. 2 12:11 PM [facility] DERMATOPATHOLOGY LABORATORY Microscopic Description Specimen A. SKIN, right cheek: There are fibroblasts and collagen bundles oriented parallel to the skin surface. There are elongated blood vessels, some of which are oriented perpendicular to the skin surface. No residual squamous cell carcinoma in situ is identified. 2 12:11 PM [facility] DERMATOPATHOLOGY LABORATORY Disclaimer An external and internal positive and negative controls are appropriate for the histochemical, immunohistochemical and immunofluorescence stain(s) in this case (if any), except where stated explicitly. The performance characteristics of the stain(s) cited in this report were developed and its performance characteristic determined by the Dermatopathology Laboratory at [facility], directed by Dr. Fredi So. These tests need not be, and therefore are not, approved by the [place] Food and Drug Administration. The tests are used for clinical purposes. Billing Codes Specimen Charges Stain Charges 80337 1 2 12:11 PM [facility] DERMATOPATHOLOGY LABORATORY Embedded Images 2 12:11 PM [facility] DERMATOPATHOLOGY LABORATORY Pathology/Cytolog y TISSUE SPECIMEN FROM SKIN / Unknown 12/17/2021 12/17/2021 2:18 PM CERTIFIED FAMILY MEDIATOR Fredrick Juarez MD LAB - PATHOLOGY/CYTO LOGY ORDERABLES DERMATOPATHOLOGY LABORATORY [facility] - Department of Dermatology [address] [place] [address], [facility] [phone] documented in this encounter Visit Diagnoses Not on filedocumented in this encounter
--- OUTSIDE RECORDS SUMMARY | 2025-01-30 10:46 | XMS_ITS | Encounter Summary ---
Author Organization [facility] Address [address] [facility] [place] [address] Care Team Providers Care Commercial Construction Project Manager Name Role Phone Unavailable Primary Care Provider Unavailabl e Encounter Details Date Type Department Care Team (Late st Contact Info) Description 10/27/2021 Lab Requisition [facility] DermPath Lab [address] [facility] [facility] [place] [id number] Fredrick Juarez MD [address] [place] [address] Social History Tobacco Use Types Packs/Day Years Used Date Smoking Tobacco: Never Assessed Sex and Gender Information Value Date Recorded Sex Assigned at Not on file Gender Identity Not on file Sexual Orientation Not on file documented as of this encounter Plan of Treatment Not on file documented as of this encounter Procedures Procedure Name Priority Date/Time Associated Diagnosis Comments DERMATOPATHOLOGY Routine 10/26/2021 12:0 0 AM PRINCIPAL CONSULTING ENGINEER documented in this encounter Results * DERMATOPATHOLOGY (10/26/2021 12:00 AM PRINCIPAL CONSULTING ENGINEER) Case Report Dermatopathology Report Case: [id number] Authorizing Provider: Fredrick Juarez MD Collected: 10/26/2021 12:00 AM Ordering Location: [facility] DermPath Lab Received: 10/27/2021 04:23 PM Pathologist: Andie Kim MD Specimen: Skin, right cheek 11:04 AM PRINCIPAL CONSULTING ENGINEER DERMATOPATHOLOGY LABORATORY Final Diagnosis Specimen A. 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 Path # [id number]. 2 11:04 AM [facility] DERMATOPATHOLOGY LABORATORY Gross Description Specimen A: Received is one formalin filled container labeled with the patient's name and designated right cheek. The specimen consists of a shave biopsy measuring [id number]. Jar 0. 2 11:04 AM [facility] DERMATOPATHOLOGY LABORATORY Microscopic Description Specimen A. SKIN, right cheek: Sections reveal parakeratosis, acanthosis and keratinocyte dysmaturation which is most prominent in the lower epidermis but focally extends through the entire epidermis. There is a column of marked compact hyperkeratosis. 2 11:04 AM [facility] DERMATOPATHOLOGY LABORATORY Disclaimer An external and internal positive and negative controls are appropriate for the histochemical, immunohistochemical and immunofluorescence stain(s) in this case (if any), except where stated explicitly. The performance characteristics of the stain(s) cited in this report were developed and its performance characteristic determined by the Dermatopathology Laboratory at [facility], directed by Dr. Fredi So. These tests need not be, and therefore are not, approved by the [place] Food and Drug Administration. The tests are used for clinical purposes. Billing Codes Specimen Charges Stain Charges 48132 1 2 11:04 AM [facility] DERMATOPATHOLOGY LABORATORY Embedded Images 2 11:04 AM [facility] DERMATOPATHOLOGY LABORATORY Pathology/Cytolog y TISSUE SPECIMEN FROM SKIN / Unknown 10/26/2021 10/27/2021 4:23 PM PRINCIPAL CONSULTING ENGINEER Fredrick Juarez MD LAB - PATHOLOGY/CYTO LOGY ORDERABLES DERMATOPATHOLOGY LABORATORY [facility] - Department of Dermatology [address] [phone] documented in this encounter Visit Diagnoses Not on filedocumented in this encounter
--- OUTSIDE RECORDS SUMMARY | 2025-01-30 10:57 | XMS_ITS | Continuity of Care Document ---
Author Organization [facility] Address [address] [place] [address] [address] [place] [address] Phone Care Team Providers Care Merchandise Complaint Adjuster Name Role Phone Uriah Péerz DO Unavailable Unavailable Advance Directives Directive Yes / No Effective Date File Name No Information Encounters Encounter Description Practice Location Reason(s) For Visit Diagnoses Date Provider Providers Copied on Encounter [facility], [address], [place], [place], [id number], tel:[phone] [facility] No Information [address] [address] [place], [address], [place]. tel:[phone] Referring Provider: Sachin Hu OD W, [address] [place] [address], [address]. tel:[phone] Family History Family Member Type Diagnosis Age At Onset No Information Payers Payer name Insurance type Covered green party ID Authoriza tion(s) No Information Social History [...]
== END 2025-01-30 11:42 | disposition home or self-care (01) ==
PROVIDERS: Emergency Provider Nurse Practitioner Family
DX: S22.31XA Fracture of one rib, right side, initial encounter for closed fracture (principal); W22.8XXA Striking against or struck by other objects, initial encounter; J06.9 Acute upper respiratory infection, unspecified; I12.9 Hypertensive chronic kidney disease with stage 1 through stage 4 chronic kidney disease, or unspecified chronic kidney disease; E11.22 Type 2 diabetes mellitus with diabetic chronic kidney disease; N18.1 Chronic kidney disease, stage 1; J43.9 Emphysema, unspecified; E78.00 Pure hypercholesterolemia, unspecified; Z87.891 Personal history of nicotine dependence
CPT/HCPCS: 71046; 71100; 99203; G0463

== ENCOUNTER 2025-02-12 12:30 | Emergency (ER) | payer MEDICARE, SELFPAY ==
[2025-02-12 12:43] VITALS: BP 94/78; PULSE 84; RESP 17; TEMP 36.1; O2SAT 98
--- NOTE | 2025-02-12 12:54 | ED_ITS ---
HPI - URI/Sore Throat General Chief Complaint: Upper Respiratory Infection Stated Complaint: snus irritation Time Seen by Provider: 02/12/25 12:54 Source: patient Mode of arrival: ambulatory Limitations: no limitations History of Present Illness HPI Narrative: here for upper respiratory complaints. Ozzie is here today with left ear pain and ongoing sinus infection symptoms. He reports about 2 weeks ago he was here for a sinus infection, and was given 5 days of doxycycline. He reports initially feeling better with the medication, but symptoms returned when he stopped medication. He is requesting additional d oxycycline as he feels like this worked well. He is additionally reporting left ear pain today. He also reports his left nostril has been running and is yellow/ brown with the bloody tinge in it. He also reports fatigue. 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 He reports some pain around the rib when he was cutting grass. He reports taking Flonase and Mucinex with some relief of symptoms. He also reports being prescribed albuterol in the past which he uses from time to time. His accompanies him today. His is a retired respiratory therapist and does not feel he needs to be using the albuterol. He denies any wheezing. He denies shortness of breath. denies any history of asthma. He reports an allergy history. He reports he used to take cetirizine but does not feel this helped his symptoms. Related Data Home Medications ?Medication ?Instructions ?Recorded ?Confirmed ?Last Taken ?Type aspirin 325 mg tablet 325 mg PO DAILY 01/30/25 01/30/25 Unknown History cyanocobalamin (vitamin B-12) mcg 01/30/25 Unknown History 1,000 mcg/mL injection solution escitalopram oxalate 10 mg tablet mg 01/30/25 Unknown History fluticasone propionate 50 1 spray intranasal DAILY PRN 01/30/25 01/30/25 Unknown History mcg/actuation nasal allergy symptoms spray,suspension glimepiride 2 mg tablet mg 01/30/25 Unknown History lisinopril 20 mg tablet mg 01/30/25 Unknown History metformin 500 mg tablet mg 01/30/25 Unknown History metoprolol succinate 50 mg mg PO 01/30/25 Unknown History tablet,extended release 24 hr pioglitazone 30 mg tablet mg 01/30/25 Unknown History rosuvastatin 40 mg tablet mg 01/30/25 Unknown History tamsulosin 0.4 mg capsule mg PO 01/30/25 Unknown History Allergies Allergy/AdvReac Type Severity Reaction Status Date / Time fish oil Allergy Severe throat Verified 02/12/25 12:39 swelling Penicillins Allergy Mild Rash Verified 02/12/25 12:39 Review of Systems Review of Systems: CONSTITUTIONAL: Denies fever, chills, or sweats. EYES: Denies visual changes, redness, or discharge. ENT: Reports rhinorrhea, congestion. Denies sore throat .Reports left otalgia. CARDIOVASCULAR: Denies chest pain, palpitations, or edema. RESPIRATORY: Denies cough or dyspnea. GASTROINTESTINAL: Denies abdominal pain, nausea, vomiting, or diarrhea. GENITOURINARY: Denies dysuria or hematuria. SKIN: Denies rash or itching. MUSCULOSKELETAL: Reports pain in right ribs when doing physical activity such as mowing the grass. NEUROLOGIC: Denies numbness, or weakness. Reports headache. PSYCHIATRIC: Denies anxiety or depression. All other systems reviewed are negative, except as documented in HPI. PMFSH Family History Family History Other Diabetes mellitus Family history of Alzheimer's disease Family history of cardiovascular disease Family history of seizure disorder Social History Social History Smoking status: Never smoker Alcohol intake: never Comments At time of signature, I have reviewed and agree with nursing past medical, surgical, social and family history unless otherwise noted. Please see nursing chart for further information. There is no relevant family history pertinent to the presenting complaint. Exam Narrative: GENERAL: This is a well-nourished, well-developed patient, in no apparent distress. HEAD: normocephalic, atraumatic. EYES: Sclera clear/white. No discharge. EARS: External ears normal, auditory canals clear on right and cerumen impaction on left. Right TM normal without perforation. +fluid level. NOSE: External nose normal with no obvious nasal discharge, nares with redness and hypertrophic pale mucosa, Yellow/brown rhinorrhea. THROAT: Mucous membranes moist, posterior pharynx +PND NECK: Neck supple, non-tender without lymphadenopathy. CARDIOVASCULAR: Regular rate and rhythm without murmurs, gallops, or rubs. RESPIRATORY: Clear to auscultation. Breath sounds equal bilaterally. No wheezes, rales, or rhonchi. SKIN: warm, Dry, intact with no suspicious lesions or rash, good texture and turgor. NEURO: awake, alert, and oriented to person, place and time. There were no obvious focal neurologic abnormalities. EXTREMITIES: No joint tenderness, effusion, or edema noted. Course Course Level of Care: Express Care Visit Reevaluation(s) Reevaluation #1: after initial ear irrigation, cerumen was partially removed. Debrox was instilled for 10-15 minutes. After Debrox, here was again irrigated and curetted with complete removal of cerumen impaction. Verbal consent for procedure by patient. patient tolerated well. Vital Signs Vital signs: Vital Signs Temperature 36.1 C L 02/12/25 12:43 Pulse Rate 84 02/12/25 12:43 Respiratory Rate 17 02/12/25 12:43 Blood Pressure 94/78 L 02/12/25 12:43 Pulse Oximetry 98 02/12/25 12:43 Oxygen Delivery Room Air 02/12/25 12:43 Temperature 36.1 C L 02/12/25 12:43 Pulse Rate 84 02/12/25 12:43 Respiratory Rate 17 02/12/25 12:43 Blood Pressure 94/78 L 02/12/25 12:43 Pulse Oximetry 98 02/12/25 12:43 Oxygen Delivery Room Air 02/12/25 12:43 reviewed Procedures Ear Wax Removal Left Ear: Ear Wax Removal Date: 02/12/25 Ear Wax Removal Time: 13:30 Cerumenolytic Used: 5-10% Sodium Bicarb solution Results: Re-examined: cerumen removed completely TM Examination: TM(s) intact, normal appearance Ear Canal Exam: atraumatic Patient Tolerated Procedure: well and no complications Complications: no problems Technique: ear canal irrigated and ear canal curetted Additional Comments: Debrox drops were used after 1st irrigation was not successful. Following the Debronx, cerumen was able to be removed completely. MDM - URI/Sore Throat MDM Narrative Medical decision making narrative: Patient is aware of diagnosis, understands and agrees to treatment plan. Anticipatory guidance was given. Discussed physical exam findings with patient and reviewed prescriptions. Shared decision-making was used as we discussed guidelines recommendation, medication allergy, and patient request for doxycycline. Per guideline 10 days of doxycycline were prescribed today. Patient agrees to follow-up as directed and is aware of reasons to seek care at the emergency department. Discharge instructions were reviewed with the patient, as well as provided in writing per nursing staff. All questions have been answered, and the patient denies any further questions related to discharge or discharge plan. Discharge Plan Discharge Clinical Impression: Acute bacterial sinusitis Cerumen impaction Qualifiers: Laterality: left Qualified Code(s): H61.22 - Impacted cerumen, left ear Patient Disposition: Home Condition: Stable Instructions: Antibiotic Form, Carbamide Peroxide (Into the ear), Ear Infection (ED) Additional Instructions: We used Debrox and removed ear wax from you left ear. You were also diagnosed with an acute bacterial sinus infection today. Start a daily antihistamine such as Zyrtec, Susu, or Claritin. Resume Flonase in 1-2 days when your nasal drainage no longer shows brown or red tinge. Take medications as prescribed and follow printed printed instructions. Call your primary provider today to make a follow-up appointment. Go to the emergency room for any worsening symptoms or concerns. Patient Language: Slovenian Prescriptions: New doxycycline hyclate 100 mg capsule 100 mg PO BID 10 Days Qty: 20 0RF No Action metoprolol succinate 50 mg tablet extended release 24 hr PO tamsulosin 0.4 mg capsule PO cyanocobalamin (vitamin B-12) 1,000 mcg/mL solution pioglitazone 30 mg tablet escitalopram oxalate 10 mg tablet rosuvastatin 40 mg tablet aspirin 325 mg tablet 325 mg PO DAILY fluticasone propionate 50 mcg/actuation spray,suspension 1 spray intranasal DAILY PRN (Reason: allergy symptoms) Rx Instructions: administer into each nostril metformin 500 mg tablet lisinopril 20 mg tablet glimepiride 2 mg tablet (DME) Aerochamber MV Spacer See Rx Instructions .Route Qty: 1 0RF Rx Instructions: As directed prednisone 20 mg tablet 40 mg PO DAILY 5 Days Qty: 10 0RF doxycycline monohydrate 100 mg tablet 100 mg PO BID 5 Days Qty: 10 0RF albuterol sulfate 90 mcg/actuation HFA aerosol inhaler 2 puff inhalation QID PRN (Reason: shortness of breath or wheezing) Qty: 6.7 0RF hydrocodone-acetaminophen 5-325 mg tablet 1 tablet PO Q6H PRN (Reason: pain) Qty: 12 0RF baclofen 10 mg tablet 10 mg PO TID 5 Days Qty: 15 0RF Follow-up/Referrals: Guillermina,MD Juanita [Primary Care Provider] - Time of Disposition: 13:59
--- OUTSIDE RECORDS SUMMARY | 2025-02-12 14:01 | XMS_ITS | Clinical Summary ---
Author Organization [facility] Address [address] [place] [address] Care Team Providers Care Surgical Brace Maker Name Role Phone Juanita Sarmiento MD Primary Care Provider Social History Tobacco Use Types Packs/Day Years [...] Td Vaccines ( 1 - Tdap) 1970 Pneumococcal Vaccine: 50+ Ye ars (1 of 1 - PCV) 2001 Zoster Vaccines (1 of 2) 2001 Annual Medicare Wellness Visit 02/18/2016 COVID-19 Vaccine ( - 2023-2 5 [...] complete this topic Insurance [employer] Care Teams Surgical Brace Maker Relationship Specialty Start Date End Date Juanita Sarmiento MD [address] [facility] [address] [place] [address] PCP - General INTERNAL MEDICINE 07/28/22
--- OUTSIDE RECORDS SUMMARY | 2025-02-12 14:01 | XMS_ITS | Clinical Summary ---
Author Organization [facility] Address [address] [place] [address] Care Team Providers Care Metals Sales Representative Name Role Phone Unavailable Primary Care Provider Unavailabl e Source Comments [facility],non-owned Affiliates and Associated Physician Practices is amultiple site organization consisting of ambulatory clinics and hospital sitesin [place], [place], [place] and [place]. This disclosure is being madepursuant to the Care Everywhere program and may not contain all information available regarding this patient. Last updated 18.[facility] [employer] Social History Tobacco Use Types Packs/Day Years Used Date Smoking Tobacco: Never Assessed Sex and Gender Information Value Date Recorded Sex Assigned at Not on file Legal Sex Male 5:02 AM [employer] Gender Identity Not on file Sexual Orientation [...]
--- OUTSIDE RECORDS SUMMARY | 2025-02-12 14:02 | XMS_ITS | Continuity of Care Document ---
Author Organization [facility] Address [id number] [place] [address] [address] [place] [address] Phone Care Team Providers Care Catalyst Impregnator Name Role Phone Uriah Pérez DO Unavailable Unavailable Advance Directives Directive Yes / No Effective Date File Name No Information Encounters Encounter Description Practice Location Reason(s) For Visit Diagnoses Date Provider Providers Copied on Encounter [facility], [address], [place], [place], [id number], tel:[phone] [facility] No Information [address] [address] [place], [address], [place]. tel:[phone] Referring Provider: Sachin Hu OD W, [address] [place] [address], [address]. tel:[phone] Family History Family Member Type Diagnosis Age At Onset No Information Payers Payer name Insurance type Covered democrat ID Authoriza tion(s) No Information Social History [...]
--- OUTSIDE RECORDS SUMMARY | 2025-02-12 14:02 | XMS_ITS | Encounter Summary ---
Author Organization [facility] Address [address] [place] [address] Care Team Providers Care Language Assistant Name Role Phone Unavailable Primary Care Provider Unavailabl e Encounter Details Date Type Department Care Team (Late st Contact Info) Description 12/17/2021 Lab Requisition [facility] DermPath Lab [address] [place] [id number] Fredrick Juarez MD [address] [place] [address] Social History Tobacco Use Types Packs/Day Years Used Date Smoking Tobacco: Never Assessed Sex and Gender Information Value Date Recorded Sex Assigned at Not on file Legal Sex Male 5:02 AM MOTION STUDY ANALYST Gender Identity Not on file Sexual Orientation Not on file documented as of this encounter Plan of Treatment Not on file documented as of this encounter Procedures Procedure Name Priority Date/Time Associated Diagnosis Comments DERMATOPATHOLOGY Routine 12/17/2021 12:0 0 AM MOTION STUDY ANALYST documented in this encounter Results * DERMATOPATHOLOGY (12/17/2021 12:00 AM MOTION STUDY ANALYST) Case Report Dermatopathology Report Case: [id number] Authorizing Provider: Fredrick Juarez MD Collected: 12/17/2021 12:00 AM Ordering Location: [facility] DermPath Lab Received: 12/17/2021 02:18 PM Pathologist: Andie Kim MD Specimen: Skin, right cheek 2 12:11 PM MOTION STUDY ANALYST DERMATOPATHOLOGY LABORATORY Final Diagnosis Specimen A. SKIN, right cheek: DERMAL SCAR RESIDUAL SQUAMOUS CELL CARCINOMA IN SITU NOT IDENTIFIED (L90.5) 12:11 PM MOTION STUDY ANALYST DERMATOPATHOLOGY LABORATORY Clinical History SCCA in situ. Path # [id number]. Check margins. 2 12:11 PM [facility] DERMATOPATHOLOGY LABORATORY Gross Description Specimen A: Received is one formalin filled container labeled with the patient's name and designated right cheek. The specimen consists of a non-oriented ellipse of skin measuring [id number]. The epidermal surface is unremarkable. The margin is inked green. The 12 o'clock and 6 o'clock tips are submitted in cassette 1. The remainder of the ellipse is serially sectioned and submitted in cassettes 2-3. Jar 0. 2 12:11 PM [facility] DERMATOPATHOLOGY LABORATORY Microscopic Description Specimen A. SKIN, right cheek: There are fibroblasts and collagen bundles oriented parallel to the skin surface. There are elongated blood vessels, some of which are oriented perpendicular to the skin surface. No residual squamous cell carcinoma in situ is identified. 2 12:11 PM [facility] DERMATOPATHOLOGY LABORATORY Disclaimer An external and internal positive and negative controls are appropriate for the histochemical, immunohistochemical and immunofluorescence stain(s) in this case (if any), except where stated explicitly. The performance characteristics of the stain(s) cited in this report were developed and its performance characteristic determined by the Dermatopathology Laboratory at [facility], directed by Dr. Fredi So. These tests need not be, and therefore are not, approved by the [place] Food and Drug Administration. The tests are used for clinical purposes. Billing Codes Specimen Charges Stain Charges 79175 1 2 12:11 PM [facility] DERMATOPATHOLOGY LABORATORY Embedded Images 2 12:11 PM [facility] DERMATOPATHOLOGY LABORATORY Pathology/Cytolog y TISSUE SPECIMEN FROM SKIN / Unknown 12/17/2021 12/17/2021 2:18 PM [facility] us Fredrick Juarez MD LAB - PATHOLOGY/CYTOLOGY ORDER COCO Final Result DERMATOPATHOLOGY LABORATORY [facility] - Department of Dermatology [address] [phone] documented in this encounter Visit Diagnoses Not on filedocumented in this encounter
--- OUTSIDE RECORDS SUMMARY | 2025-02-12 14:02 | XMS_ITS | Encounter Summary ---
Author Organization [facility] Address [address] [place] [address] Care Team Providers Care Core Cutter And Reamer Name Role Phone Unavailable Primary Care Provider Unavailabl e Encounter Details Date Type Department Care Team (Late st Contact Info) Description 10/27/2021 Lab Requisition [facility] DermPath Lab [address] [place] [id number] Fredrick Juarez MD [address] [place] [address] Social History Tobacco Use Types Packs/Day Years Used Date Smoking Tobacco: Never Assessed Sex and Gender Information Value Date Recorded Sex Assigned at Not on file Legal Sex Male 5:02 AM COMPUTER SCIENCE TEACHER Gender Identity Not on file Sexual Orientation Not on file documented as of this encounter Plan of Treatment Not on file documented as of this encounter Procedures Procedure Name Priority Date/Time Associated Diagnosis Comments DERMATOPATHOLOGY Routine 10/26/2021 12:0 0 AM COMPUTER SCIENCE TEACHER documented in this encounter Results * DERMATOPATHOLOGY (10/26/2021 12:00 AM COMPUTER SCIENCE TEACHER) Case Report Dermatopathology Report Case: [id number] Authorizing Provider: Fredrick Juarez MD Collected: 10/26/2021 12:00 AM Ordering Location: [facility] DermPath Lab Received: 10/27/2021 04:23 PM Pathologist: Andie Kim MD Specimen: Skin, right cheek 2 11:04 AM COMPUTER SCIENCE TEACHER DERMATOPATHOLOGY LABORATORY Final Diagnosis Specimen A. 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 Path # [id number]. 2 11:04 AM [facility] DERMATOPATHOLOGY LABORATORY Gross Description Specimen A: Received is one formalin filled container labeled with the patient's name and designated right cheek. The specimen consists of a shave biopsy measuring [id number]. Jar 0. 2 11:04 AM [facility] DERMATOPATHOLOGY LABORATORY Microscopic Description Specimen A. SKIN, right cheek: Sections reveal parakeratosis, acanthosis and keratinocyte dysmaturation which is most prominent in the lower epidermis but focally extends through the entire epidermis. There is a column of marked compact hyperkeratosis. 2 11:04 AM [facility] DERMATOPATHOLOGY LABORATORY Disclaimer An external and internal positive and negative controls are appropriate for the histochemical, immunohistochemical and immunofluorescence stain(s) in this case (if any), except where stated explicitly. The performance characteristics of the stain(s) cited in this report were developed and its performance characteristic determined by the Dermatopathology Laboratory at [facility], directed by Dr. Fredi So. These tests need not be, and therefore are not, approved by the [place] Food and Drug Administration. The tests are used for clinical purposes. Billing Codes Specimen Charges Stain Charges 46094 1 2 11:04 AM [facility] DERMATOPATHOLOGY LABORATORY Embedded Images 2 11:04 AM [facility] DERMATOPATHOLOGY LABORATORY Pathology/Cytolog y TISSUE SPECIMEN FROM SKIN / Unknown 10/26/2021 10/27/2021 4:23 PM COMPUTER SCIENCE TEACHER us Fredrick Juarez MD LAB - PATHOLOGY/CYTOLOGY ORDER COCO Final Result DERMATOPATHOLOGY LABORATORY [facility] - Department of Dermatology [address] [place] [address], [facility] [phone] documented in this encounter Visit Diagnoses Not on filedocumented in this encounter
--- OUTSIDE RECORDS SUMMARY | 2025-02-12 14:02 | XMS_ITS | Data Portability ---
Author Organization [facility] [employer] Address [address] [facility] [address] [place] [address] Care Team Providers [place] Records Management Officer Name Role Phone JOAQUÍN THOMAS Health Professional [phone] JUANITA RIZO Primary Care Provider [facility] Fire Management Officer Assessment Encounter Date Assessment Date Assessment LastModified [...] Organization Details Last Modified Time Details Appointments None recorded. Lab HbA1c (hemoglobin A1c), blood 2023 [facility], [address] [place] [address], [address], 4 03:35:32 C-peptide, serum 2023 [facility], [address] [place] [address], [address], 4 03:35:33 microalbumi n/creatinin e, mass ratio, urine 2023 [facility], [address] [place] [address], 740[address], 4 03:35:30 vitamin B12, serum 2023 [facility], [address] [place] [address], 79[address], 4 03:35:34 lipid panel w/ direct LDL, serum 2023 [facility], [address] [place] [address], [address], 4 03:35:29 TSH, serum or plasma 2023 [facility], [address] [place] [address], 7[address], 4 03:35:31 CMP, serum or plasma 2023 024 [facility], [address] [place] [address], [address]77[address], 4 03:35:28 CBC w/ auto diff 2023 [facility], [address] [place] [address], [address], 4 03:35:26 vitamin D, 25-hydroxy, total, serum 2023 024 [facility], [address] [place] [address], 9[address], 4 03:35:33 CMP, serum or plasma 2023 024 [facility], [address] [place] [address], 627[address], 4 16:36:11 CBC 2023 024 [facility], [address] [place] [address], 735[address], 4 16:36:12 hemoglobin A1c, QN, blood 2023 024 [facility], [address] [place] [address], [address], 4 19:26:00 C-peptide, serum 2023 024 [facility], [address] [place] [address], 6[address], 4 16:36:14 vitamin B12, serum 2023 024 [facility], [address] [place] [address], 12995, 4 16:36:15 lipid panel w/ direct LDL, serum 2023 024 [facility], [address] [place] [address], 78110, 4 07:36:50 TSH, serum or plasma 2023 024 [facility], [address] [place] [address], 01967, 4 07:36:52 CMP, serum or plasma 2023 024 [facility], [address] [place] [address], 28[address], 4 07:36:49 CBC w/ auto diff 2023 024 [facility], [address] [place] [address], 88583, 4 07:36:48 HbA1c (hemoglobin A1c), blood 2023 024 [facility], [address] [place] [address], 68831, 4 07:36:53 microalbumi n/creatinin e, mass ratio, urine 2023 024 [facility], [address] [place] [address], 91174, 4 07:36:51 C-peptide, serum 2023 024 [facility], [address] [place] [address], 62863, 4 07:36:53 vitamin B12, serum 2023 024 [facility], [address] [place] [address], 48733, 4 07:36:54 lipid panel w/ direct LDL, serum 2022 023 [email or web address] 6 [facility], [address] [place] [address], 10[address], 5 14:01:59 TSH, serum or plasma 2022 023 [email or web address] 6 [facility], [address] [place] [address], 45[address], 5 14:01:59 CMP, serum or plasma 2022 023 [email or web address] 6 [facility], [address] [place] [address], 19[address], 5 14:01:58 CBC w/ auto diff 2022 023 [email or web address] 6 [facility], [address] [place] [address], 91381, 5 14:01:58 HbA1c (hemoglobin A1c), blood 2022 023 LEROY [facility], [address] [place] [address], 44471, 4 16:36:13 C-peptide, serum 2022 023 [email or web address] 6 [facility], [address] [place] [address], 43827, 5 14:01:58 vitamin D, 25-hydroxy, total, serum 2022 023 [email or web address] 6 [facility], [address] [place] [address], 11247, 5 14:01:59 Referral physical therapist referral 2023 024 [email or web address] 6 [facility], [address], [place], [address], 5 14:02:16 endocrinolo gy referral [address] - Endocrinology , [address], [facility] [address], [place], [address], 4 10:28:02 physical therapist referral 2023 024 [email or web address] 6 [facility], [address], [place], [address], 5 14:02:16 cardiologis t referral 2023 024 [email or web address] Fernando Fournier MD, [address] [place], [address], 4 19:33:44 Procedures None recorded. Surgeries None recorded. Imaging US, renal 2023 024 [email or web address] Not available 5 14:02:00 XR, cervical spine, 2 or 3 view 2023 024 LEROY Not available 4 13:27:55 XR, lumbar spine 2023 024 LEROY Not available 4 13:30:06 CT, angiogram, chest, w/wo contrast 2023 024 LEROY Not available 4 11:35:14 electrocard iogram 2023 024 [facility] [email or web address], [facility], [address], [place], [address], 4 13:14:24 XR, kidney + ureter + bladder 2023 024 [email or web address] 6 Not available 5 14:01:59 electrocard iogram 2023 024 [facility] [email or web address], [facility], [address], [place], [address], 4 13:10:49 XR, kidney + ureter + bladder 2022 023 [email or web address] 6 Not available 5 14:01:59 Medication Orders Tylenol Extra Strength 500 mg tablet 2023 024 OMA[facility], [address], [place], [place], [id number], 4 09:42:23 baclofen 10 mg tablet 2023 024 [facility]77168, [address], [place], [place], [id number], 4 10:24:31 Tylenol Extra Strength 500 mg tablet 2023 024 [facility] #88726, [address], [place], [place], [id number], 4 10:24:26 lisinopril 20 mg tablet 2023 024 [facility] #01722, [address], [place], [place], [id number], 4 19:25:52 metformin 500 mg tablet 2023 024 [facility] #20556, [address], [place], [place], [id number], 4 19:25:50 omeprazole 20 mg capsule,del ayed release 2023 024 [facility], [address], [place], [place], [id number], 4 19:25:53 Patient TargetsNo targets recorded. Patient Instructions Encounter Date Encounter Id Patient Instructions Last Modified By Organization Details Last Modified Time 07/31/2023 [id number] kidney stone: ca re instructions mshenouda Not available 07/31/2023 09:42:21 learning about d iet for kidney stone prevention mshenouda Not available 07/31/2023 09:42:21 body mass index: care instructions mshenouda Not available 07/31/2023 09:42:20 learning about healthy weight mshenouda Not available 07/31/2023 09:42:20 10/30/2023 [id number] chronic obstruct melania pulmonary disease (COPD): care instructions mshenouda Not available 10/30/2023 11:33:48 kidney stone: ca re instructions mshenouda Not available 10/30/2023 11:33:48 learning about d iet for kidney stone prevention mshenouda Not available 10/30/2023 11:33:47 body mass index: care instructions mshenouda Not available 10/30/2023 11:33:48 learning about healthy weight mshenouda Not available 10/30/2023 11:33:49 living will mshenouda Not available 05/2024 11:29:14 04/15/2024 [id number] body mass index: care instructions mshenouda Not available 04/15/2024 19:25:42 learning about healthy weight mshenouda Not available 04/15/2024 19:25:43 04/29/2024 [id number] neck pain: care instructions mshenouda Not available 04/29/2024 10:24:20 type 2 diabetes: care instructions mshenouda Not available 04/29/2024 10:24:21 back care and preventing injuries: care instructions mshenouda Not available 04/29/2024 10:24:20 getting back to normal after low back pain: care instructions mshenouda Not available 04/29/2024 10:24:21 learning about relief for back pain mshenouda Not available 04/29/2024 10:24:21 09/02/2024 [id number] neck pain: care instructions mshenouda Not available [...] Not available 08/23 09:36:15 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 Engineering Geologist Referral for At ypical chest pain Referring Physician: Juanita Rizo, Internal Medicine, Encounter Date: 04/15/2024 Physical Therapist Referral for Neck pain Referring Physician: Juanita Rizo, Internal Medicine, Encounter Date: 04/29/2024 Physical Therapist Referral for Low back pain Referring Physician: Juanita Rizo, Internal Medicine, Encounter Date: 04/29/2024 Endocrinology Referral for U ncontrolled type 2 diabetes mellitus Referring Physician: Juanita Rizo, Internal Medicine, Encounter Date: 04/29/2024 Results Created Date Observation Date Name Description Value Unit Range Abnormal Flag Note LastModifiedBy Organization Detail LastModifiedTime 07/18/2007/18/2023 COLOG UARD cologuard result CANCEL LED - ORDER D not applic able Not Available [facility] (Cologuard Orders Only) [address], [place], [address], 07/18/2023 08:46:13 11/21/19 24 11/22/2023 CBC WITH DIFFE RENTI AL/PL ATELE T WBC 7.4 x10e3 /uL 3.4-10 .8 Not Available [facility] ([facility]) [address] [facility], [place], [address], 11/24/2023 07:36:47 11/21/19 24 11/22/2023 CBC WITH DIFFE RENTI AL/PL ATELE T RBC 4.90 x10e6 /uL 4.14-5 .80 Not Available [facility] ([facility]) [address] [facility], [place], [address], 11/24/2023 07:36:47 11/21/19 24 11/22/2023 CBC WITH DIFFE RENTI AL/PL ATELE T hemoglobin 14.6 g/dL 13.0-1 7.7 Not Available [facility] ([facility]) [address] [facility], [place], [address], 11/24/2023 07:36:47 11/21/19 24 11/22/2023 CBC WITH DIFFE RENTI AL/PL ATELE T hematocrit 44.8 % 37.5-5 1.0 Not Available [facility] ([facility]) [address] [facility], [place], [address], 11/24/2023 07:36:47 11/21/19 24 11/22/2023 CBC WITH DIFFE RENTI AL/PL ATELE T MCV 91 fL 79-97 Not Available [facility] ([facility]) [address] [place], [address], 11/24/2023 07:36:47 11/21/19 24 11/22/2023 CBC WITH DIFFE RENTI AL/PL ATELE T MCH 29.8 pg 26.6-3 3.0 Not Available [facility] ([facility]) [address] [facility], [place], [address], 11/24/2023 07:36:47 11/21/19 24 11/22/2023 CBC WITH DIFFE RENTI AL/PL ATELE T MCHC 32.6 g/dL 31.5-3 5.7 Not Available [facility] ([facility]) [address] [place], [address], 11/24/2023 07:36:47 11/21/19 24 11/22/2023 CBC WITH DIFFE RENTI AL/PL ATELE T RDW 13.2 % 11.6-1 5.4 Not Available [facility] ([facility]) [address] [facility], [place], [address], 11/24/2023 07:36:47 11/21/19 24 11/22/2023 CBC WITH DIFFE RENTI AL/PL ATELE T platelets 276 x10e3 /uL 150-45 0 Not Available [facility] ([facility]) [address] [facility], [place], [address], 11/24/2023 07:36:47 11/21/19 24 11/22/2023 CBC WITH DIFFE RENTI AL/PL ATELE T neutrophils 71 % not estab. Not Available [facility] ([facility]) [address] [facility], [place], [address], 11/24/2023 07:36:47 11/21/19 24 11/22/2023 CBC WITH DIFFE RENTI AL/PL ATELE T lymphs 20 % not estab. Not Available [facility] ([facility]) [address] [facility], [place], [address], 11/24/2023 07:36:47 11/21/19 24 11/22/2023 CBC WITH DIFFE RENTI AL/PL ATELE T monocytes 7 % not estab. Not Available [facility] ([facility]) [address] [facility], [place], [address], 11/24/2023 07:36:47 11/21/19 24 11/22/2023 CBC WITH DIFFE RENTI AL/PL ATELE T eos 2 % not estab. Not Available [facility] ([facility]) [address] [facility], [place], [address], 11/24/2023 07:36:47 11/21/19 24 11/22/2023 CBC WITH DIFFE RENTI AL/PL ATELE T basos 0 % not estab. Not Available [facility] ([facility]) [address] [facility], [place], [address], 11/24/2023 07:36:47 11/21/19 24 11/22/2023 CBC WITH DIFFE RENTI AL/PL ATELE T immature cells PUBLIC WELFARE WORKER Not Available [facility] ([facility]) [address] [facility], [place], [address], 11/24/2023 07:36:47 11/21/19 24 11/22/2023 CBC WITH DIFFE RENTI AL/PL ATELE T neutrophils (absolute) 5.2 x10e3 /uL 1.4-7. 0 Not Available [facility] ([facility]) [address] [facility], [place], [address], 11/24/2023 07:36:47 11/21/19 24 11/22/2023 CBC WITH DIFFE RENTI AL/PL ATELE T lymphs (absolute) 1.5 x10e3 /uL 0.7-3. 1 Not Available [facility] ([facility]) [address] [facility], [place], [address], 11/24/2023 07:36:47 11/21/19 24 11/22/2023 CBC WITH DIFFE RENTI AL/PL ATELE T monocytes(ab solute) 0.5 x10e3 /uL 0.1-0. 9 Not Available [facility] ([facility]) [address] [facility], [place], [address], 11/24/2023 07:36:47 11/21/19 24 11/22/2023 CBC WITH DIFFE RENTI AL/PL ATELE T eos (absolute) 0.2 x10e3 /uL 0.0-0. 4 Not Available [facility] ([facility]) [address] [facility], [place], [address], 11/24/2023 07:36:47 11/21/19 24 11/22/2023 CBC WITH DIFFE RENTI AL/PL ATELE T baso (absolute) 0.0 x10e3 /uL 0.0-0. 2 Not Available [facility] ([facility]) [address] [facility], [place], [address], 11/24/2023 07:36:47 11/21/19 24 11/22/2023 CBC WITH DIFFE RENTI AL/PL ATELE T immature granulocytes 0 % not estab. Not Available [facility] ([facility]) [address] [facility], [place], [address], 11/24/2023 07:36:47 11/21/19 24 11/22/2023 CBC WITH DIFFE RENTI AL/PL ATELE T immature grans (abs) 0.0 x10e3 /uL 0.0-0. 1 Not Available [facility] ([facility]) [address] [facility], [place], [address], 11/24/2023 07:36:47 11/21/19 24 11/22/2023 CBC WITH DIFFE RENTI AL/PL ATELE T NRBC PUBLIC WELFARE WORKER Not Available [facility] ([facility]) [address] [facility], [place], [address], 11/24/2023 07:36:47 11/21/19 24 11/22/2023 CBC WITH DIFFE RENTI AL/PL ATELE T hematology comments: PUBLIC WELFARE WORKER Not Available [facility] ([facility]) [address] [facility], [place], [address], 11/24/2023 07:36:47 11/21/19 24 11/22/2023 COMP. METAB OLIC PANEL (14) glucose 209 mg/dL 70-99 above high normal Not Available [facility] ([facility]) [address] [facility] [place], [address], 11/24/2023 07:36:49 11/21/19 24 11/22/2023 COMP. METAB OLIC PANEL (14) BUN 16 mg/dL 8-27 Not Available [facility] ([facility]) [address] [place], [address], 11/24/2023 07:36:49 11/21/19 24 11/22/2023 COMP. METAB OLIC PANEL (14) creatinine 1.35 mg/dL 0.76-1 .27 above high normal Not Available [facility] ([facility]) [address] [facility], [place], [address], 11/24/2023 07:36:49 11/21/19 24 11/22/2023 COMP. METAB OLIC PANEL (14) eGFR 56 mL/mi n/1.7 3 >59 below low normal Not Available [facility] ([facility]) [address] [facility] [place], [address], 11/24/2023 07:36:49 11/21/19 24 11/22/2023 COMP. METAB OLIC PANEL (14) BUN/creatini ne ratio 12 10-24 Not Available [facility] ([facility]) [address] [facility], [place], [address], 11/24/2023 07:36:49 11/21/19 24 11/22/2023 COMP. METAB OLIC PANEL (14) sodium 139 mmol/ L 134-14 4 Not Available [facility] ([facility]) [address] [facility], [place], [address], 11/24/2023 07:36:49 11/21/19 24 11/22/2023 COMP. METAB OLIC PANEL (14) potassium 4.4 mmol/ L 3.5-5. 2 Not Available [facility] ([facility]) [address] [facility], [place], [address], 11/24/2023 07:36:49 11/21/19 24 11/22/2023 COMP. METAB OLIC PANEL (14) chloride 100 mmol/ L 96-106 Not Available [facility] ([facility]) [address] [facility], [place], [address], 11/24/2023 07:36:49 11/21/19 24 11/22/2023 COMP. METAB OLIC PANEL (14) carbon dioxide, total 23 mmol/ L 20- Not Available [facility] ([facility]) [address] [facility], [place], [address], 11/24/2023 07:36:49 11/21/19 24 11/22/2023 COMP. METAB OLIC PANEL (14) calcium 9.8 mg/dL 8.6-10 .2 Not Available [facility] ([facility]) [address] [facility], [place], [address], 11/24/2023 07:36:49 11/21/19 24 11/22/2023 COMP. METAB OLIC PANEL (14) protein, total 6.9 g/dL 6.0-8. 5 Not Available [facility] ([facility]) [address] [facility], [place], [address], 11/24/2023 07:36:49 11/21/19 24 11/22/2023 COMP. METAB OLIC PANEL (14) albumin 4.5 g/dL 3.8-4. 8 Not Available [facility] ([facility]) [address] [facility], [place], [address], 11/24/2023 07:36:49 11/21/19 24 11/22/2023 COMP. METAB OLIC PANEL (14) globulin, total 2.4 g/dL 1.5-4. 5 Not Available [facility] ([facility]) [address] [place], [address], 11/24/2023 07:36:49 11/21/19 24 11/22/2023 COMP. METAB OLIC PANEL (14) A/G ratio 1.9 1.2-2. 2 Not Available [facility] ([facility]) [address] [facility], [place], [address], 11/24/2023 07:36:49 11/21/19 24 11/22/2023 COMP. METAB OLIC PANEL (14) bilirubin, total 0.4 mg/dL 0.0-1. 2 Not Available [facility] ([facility]) [address] [place], [address], 11/24/2023 07:36:49 11/21/19 24 11/22/2023 COMP. METAB OLIC PANEL (14) alkaline phosphatase 56 IU/L 44-121 Not Available [facility] ([facility]) [address] [place], [address], 11/24/2023 07:36:49 11/21/19 24 11/22/2023 COMP. METAB OLIC PANEL (14) AST (SGOT) 22 IU/L 0-40 Not Available [facility] ([facility]) [address] [place], [address], 11/24/2023 07:36:49 11/21/19 24 11/22/2023 COMP. METAB OLIC PANEL (14) ALT (SGPT) 22 IU/L 0-44 Not Available [facility] ([facility]) [address] [place], [address], 11/24/2023 07:36:49 11/21/19 24 11/22/2023 LP+LD L DIREC T cholesterol, total 156 mg/dL 100-19 9 Not Available [facility] ([facility]) [address] [place], [address], 11/24/2023 07:36:50 11/21/19 24 11/22/2023 LP+LD L DIREC T triglyceride s 167 mg/dL 0-149 above high normal Not Available [facility] ([facility]) [address] [place], [address], 11/24/2023 07:36:50 11/21/19 24 11/22/2023 LP+LD L DIREC T HDL cholesterol 34 mg/dL >39 below low normal Not Available [facility] ([facility]) [address] [place], [address], 11/24/2023 07:36:50 11/21/19 24 11/22/2023 LP+LD L DIREC T VLDL cholesterol irvin 29 mg/dL 5-40 Not Available [facility] ([facility]) [address] [facility], [place], [address], 11/24/2023 07:36:50 11/21/19 24 11/22/2023 LP+LD L DIREC T LDL chol calc (nih) 93 mg/dL 0-99 Not Available [facility] ([facility]) [address] [facility], [place], [address], 11/24/2023 07:36:50 11/21/19 24 11/22/2023 LP+LD L DIREC T comment: PUBLIC WELFARE WORKER Not Available [facility] ([facility]) [address] [facility], [place], [address], 11/24/2023 07:36:50 11/21/19 24 11/22/2023 LP+LD L DIREC T LDL chol. (direct) 89 mg/dL 0-99 Not Available [facility] ([facility]) [address] [facility], [place], [address], 11/24/2023 07:36:50 11/21/19 24 11/22/2023 ALBUM IN/CR EAT RATIO , RANDO M UR creatinine, urine 142.1 mg/dL not estab. Not Available [facility] ([facility]) [address] [place], [address], 11/24/2023 07:36:51 11/21/19 24 11/22/2023 ALBUM IN/CR EAT RATIO , RANDO M UR albumin, urine 29.0 ug/mL not estab. Not Available [facility] ([facility]) [address] [facility], [place], [address], 11/24/2023 07:36:51 11/21/19 24 11/22/2023 ALBUM IN/CR EAT RATIO , LETY Carranza UR alb/creat ratio 20 mg/g_ creat 0-29 Denice l: 0 - 29 Moder ately incre ased: 30 - 300 Sever baljit incre ased: >300 Not Available [facility] ([facility]) [address] [facility], [place], [address], 11/24/2023 07:36:51 11/21/19 24 11/24/2023 THYRO ID STIMU LATIN G HORMO NE TSH-icma 1.4 uu/mL Refer ence Range : Non-P regna nt Adult 0.450 -4.50 0 Not Available [facility] [address] [place] [address], [address], 11/24/2023 07:36:52 11/21/19 24 11/22/2023 HEMOG LOBIN A1C hemoglobin A1C 8.7 % 4.8-5. 6 above high normal Predi abete s: 5.7 - 6.4 Diabe lu: >6.4 Glyce jaye contr ol for adult s with diabe lu: <7.0 Not Available [facility] ([facility]) [address] [facility], [place], [address], 11/24/2023 07:36:53 11/21/19 24 11/22/2023 C-PEP TIDE, SERUM C-peptide, serum 3.8 NG/mL 1.1-4. 4 C-Pep tide refer ence inter montse is for fasti ng patie nts. Not Available [facility] ([facility]) [address] [facility], [place], [address], 11/24/2023 07:36:53 11/21/19 24 11/22/2023 VITAM IN B12 vitamin B12 251 pg/mL 232-12 45 Not Available [facility] ([facility]) [address] [place], [address], 11/24/2023 07:36:54 04/22/20 24 04/23/2024 COMP. METAB OLIC PANEL (14) glucose 159 mg/dL 70-99 above high normal Not Available [facility] ([facility]) [address] [facility] [place], [address], 04/23/2024 16:36:11 04/22/20 24 04/23/2024 COMP. METAB OLIC PANEL (14) BUN 19 mg/dL 8-27 normal Not Available [facility] ([facility]) [address] [facility] [place], [address], 04/23/2024 16:36:11 04/22/20 24 04/23/2024 COMP. METAB OLIC PANEL (14) creatinine 1.25 mg/dL 0.76-1 .27 normal Not Available [facility] ([facility]) [address] [facility] [place], [address], 04/23/2024 16:36:11 04/22/20 24 04/23/2024 COMP. METAB OLIC PANEL (14) eGFR 61 mL/mi n/1.7 3 >59 normal Not Available [facility] ([facility]) [address] [facility] [place], [address], 04/23/2024 16:36:11 04/22/20 24 04/23/2024 COMP. METAB OLIC PANEL (14) BUN/creatini ne ratio 15 10-24 normal Not Available [facility] ([facility]) [address] [place], [address], 04/23/2024 16:36:11 04/22/20 24 04/23/2024 COMP. METAB OLIC PANEL (14) sodium 139 mmol/ L 134-14 4 normal Not Available [facility] ([facility]) [address] [facility] [place], [address], 04/23/2024 16:36:11 04/22/20 24 04/23/2024 COMP. METAB OLIC PANEL (14) potassium 4.4 mmol/ L 3.5-5. 2 normal Not Available [facility] ([facility]) [address] [place], [address], 04/23/2024 16:36:11 04/22/20 24 04/23/2024 COMP. METAB OLIC PANEL (14) chloride 103 mmol/ L 96-106 normal Not Available [facility] ([facility]) [address] [place], [address], 04/23/2024 16:36:11 04/22/20 24 04/23/2024 COMP. METAB OLIC PANEL (14) carbon dioxide, total 23 mmol/ L 20-29 normal Not Available [facility] ([facility]) [address] [place], [address], 04/23/2024 16:36:11 04/22/20 24 04/23/2024 COMP. METAB OLIC PANEL (14) calcium 9.4 mg/dL 8.6-10 .2 normal Not Available [facility] ([facility]) [address] [place], [address], 04/23/2024 16:36:11 04/22/20 24 04/23/2024 COMP. METAB OLIC PANEL (14) protein, total 6.5 g/dL 6.0-8. 5 normal Not Available [facility] ([facility]) [address] [facility] [place], [address], 04/23/2024 16:36:11 04/22/20 24 04/23/2024 COMP. METAB OLIC PANEL (14) albumin 4.3 g/dL 3.8-4. 8 normal Not Available [facility] ([facility]) [address] [place], [address], 04/23/2024 16:36:11 04/22/20 24 04/23/2024 COMP. METAB OLIC PANEL (14) globulin, total 2.2 g/dL 1.5-4. 5 Not Available [facility] ([facility]) [address] [facility] [place], [address], 04/23/2024 16:36:11 04/22/20 24 04/23/2024 COMP. METAB OLIC PANEL (14) bilirubin, total 0.3 mg/dL 0.0-1. 2 normal Not Available [facility] ([facility]) [address] [facility] [place], [address], 04/23/2024 16:36:11 04/22/20 24 04/23/2024 COMP. METAB OLIC PANEL (14) alkaline phosphatase 79 IU/L 44-121 normal Not Available [facility] ([facility]) [address] [facility] [place], [address], 04/23/2024 16:36:11 04/22/20 24 04/23/2024 COMP. METAB OLIC PANEL (14) AST (SGOT) 20 IU/L 0-40 normal Not Available [facility] ([facility]) [address] [place], [address], 04/23/2024 16:36:11 04/22/20 24 04/23/2024 COMP. METAB OLIC PANEL (14) ALT (SGPT) 25 IU/L 0-44 normal Not Available [facility] ([facility]) [address] [place], [address], 04/23/2024 16:36:11 04/22/20 24 04/23/2024 CBC, PLATE LET, NO DIFFE RENTI AL WBC 7.2 x10e3 /uL 3.4-10 .8 normal Not Available [facility] ([facility]) [address] [place], [address], 04/23/2024 16:36:12 04/22/20 24 04/23/2024 CBC, PLATE LET, NO DIFFE RENTI AL RBC 4.53 x10e6 /uL 4.14-5 .80 normal Not Available [facility] ([facility]) [address] [place], [address], 04/23/2024 16:36:12 04/22/20 24 04/23/2024 CBC, PLATE LET, NO DIFFE RENTI AL hemoglobin 13.8 g/dL 13.0-1 7.7 normal Not Available [facility] ([facility]) [address] [facility], [place], [address], 04/23/2024 16:36:12 04/22/20 24 04/23/2024 CBC, PLATE LET, NO DIFFE RENTI AL hematocrit 41.8 % 37.5-5 1.0 normal Not Available [facility] ([facility]) [address] [place], [address], 04/23/2024 16:36:12 04/22/20 24 04/23/2024 CBC, PLATE LET, NO DIFFE RENTI AL MCV 92 fL 79-97 normal Not Available [facility] ([facility]) [address] [place], [address], 04/23/2024 16:36:12 04/22/20 24 04/23/2024 CBC, PLATE LET, NO DIFFE RENTI AL MCH 30.5 pg 26.6-3 3.0 normal Not Available [facility] ([facility]) [address] [place], [address], 04/23/2024 16:36:12 04/22/20 24 04/23/2024 CBC, PLATE LET, NO DIFFE RENTI AL MCHC 33.0 g/dL 31.5-3 5.7 normal Not Available [facility] ([facility]) [address] [place], [address], 04/23/2024 16:36:12 04/22/20 24 04/23/2024 CBC, PLATE LET, NO DIFFE RENTI AL RDW 12.9 % 11.6-1 5.4 Not Available [facility] ([facility]) [address] [place], [address], 04/23/2024 16:36:12 04/22/20 24 04/23/2024 CBC, PLATE LET, NO DIFFE RENTI AL platelets 254 x10e3 /uL 150-45 0 normal Not Available [facility] ([facility]) [address] [facility], [place], [address], 04/23/2024 16:36:12 04/22/20 24 04/23/2024 CBC, PLATE LET, NO DIFFE RENTI AL NRBC PUBLIC WELFARE WORKER Not Available [facility] ([facility]) [address] [place], [address], 04/23/2024 16:36:12 04/22/20 24 04/23/2024 HEMOG LOBIN A1C hemoglobin A1C 8.2 % 4.8-5. 6 above high normal Predi abete s: 5.7 - 6.4 Diabe lu: >6.4 Glyce jaye contr ol for adult s with diabe lu: <7.0 Not Available [facility] ([facility]) [address] [facility], [place], [address], 04/23/2024 16:36:13 04/22/20 24 04/23/2024 C-PEP TIDE, SERUM C-peptide, serum 3.2 NG/mL 1.1-4. 4 C-Pep tide refer ence inter montse is for fasti ng patie nts. Not Available [facility] ([facility]) [address] [facility], [place], [address], 04/23/2024 16:36:14 04/22/20 24 04/23/2024 VITAM IN B12 vitamin B12 371 pg/mL 232-12 45 normal Not Available [facility] ([facility]) [address] [place], [address], 04/23/2024 16:36:14 09/02/20 24 09/02/2024 minh metry testi ng* Spirometry Not Available [facility] [employer], [facility] [address], [place], [address], 09/02/2024 09:36:03 09/09/20 24 09/10/2024 CBC WITH DIFFE RENTI AL/PL ATELE T WBC 7.6 x10e3 /uL 3.4-10 .8 normal Eff ectiv e Decem jose 2023 [place] [id number] 5 WBC will be made* * non-o rdera ble as a stand -sam e order code. Not Available [facility] ([facility]) [address] [place], [address], 09/23/2024 03:35:26 09/09/20 24 09/10/2024 CBC WITH DIFFE RENTI AL/PL ATELE T RBC 4.72 x10e6 /uL 4.14-5 .80 normal Not Available [facility] ([facility]) [address] [place], [address], 09/23/2024 03:35:26 09/09/20 24 09/10/2024 CBC WITH DIFFE RENTI AL/PL ATELE T hemoglobin 13.7 g/dL 13.0-1 7.7 normal Not Available [facility] ([facility]) [address] [place], [address], 09/23/2024 03:35:26 09/09/20 24 09/10/2024 CBC WITH DIFFE RENTI AL/PL ATELE T hematocrit 43.7 % 37.5-5 1.0 normal Not Available [facility] ([facility]) [address] [place], [address], 09/23/2024 03:35:26 09/09/20 24 09/10/2024 CBC WITH DIFFE RENTI AL/PL ATELE T MCV 93 fL 79-97 normal Not Available [facility] ([facility]) [address] [place], [address], 09/23/2024 03:35:26 09/09/20 24 09/10/2024 CBC WITH DIFFE RENTI AL/PL ATELE T MCH 29.0 pg 26.6-3 3.0 normal Not Available [facility] ([facility]) [address] [place], [address], 09/23/2024 03:35:26 09/09/20 24 09/10/2024 CBC WITH DIFFE RENTI AL/PL ATELE T MCHC 31.4 g/dL 31.5-3 5.7 below low normal Not Available [facility] ([facility]) [address] [place], [address], 09/23/2024 03:35:26 09/09/20 24 09/10/2024 CBC WITH DIFFE RENTI AL/PL ATELE T RDW 13.0 % 11.6-1 5.4 Not Available [facility] ([facility]) [address] [place], [address], 09/23/2024 03:35:26 09/09/20 24 09/10/2024 CBC WITH DIFFE RENTI AL/PL ATELE T platelets 237 x10e3 /uL 150-45 0 normal Not Available [facility] ([facility]) [address] [place], [address], 09/23/2024 03:35:26 09/09/20 24 09/10/2024 CBC WITH DIFFE RENTI AL/PL ATELE T neutrophils 70 % not estab. normal Not Available [facility] ([facility]) [address] [place], [address], 09/23/2024 03:35:26 09/09/20 24 09/10/2024 CBC WITH DIFFE RENTI AL/PL ATELE T lymphs 20 % not estab. normal Not Available [facility] ([facility]) [address] [place], [address], 09/23/2024 03:35:26 09/09/20 24 09/10/2024 CBC WITH DIFFE RENTI AL/PL ATELE T monocytes 8 % not estab. normal Not Available [facility] ([facility]) [address] [facility], [place], [address], 09/23/2024 03:35:26 09/09/20 24 09/10/2024 CBC WITH DIFFE RENTI AL/PL ATELE T eos 2 % not estab. normal Not Available [facility] ([facility]) [address] [facility], [place], [address], 09/23/2024 03:35:26 09/09/20 24 09/10/2024 CBC WITH DIFFE RENTI AL/PL ATELE T basos 0 % not estab. normal Not Available [facility] ([facility]) [address] [facility], [place], [address], 09/23/2024 03:35:26 09/09/20 24 09/10/2024 CBC WITH DIFFE RENTI AL/PL ATELE T immature cells PUBLIC [employer] WORKER Not Available [facility] ([facility]) [address] [place], [address], 09/23/2024 03:35:26 09/09/20 24 09/10/2024 CBC WITH DIFFE RENTI AL/PL ATELE T neutrophils (absolute) 5.2 x10e3 /uL 1.4-7. 0 normal Not Available [facility] ([facility]) [address] [place], [address], 09/23/2024 03:35:26 09/09/20 24 09/10/2024 CBC WITH DIFFE RENTI AL/PL ATELE T lymphs (absolute) 1.5 x10e3 /uL 0.7-3. 1 normal Not Available [facility] ([facility]) [address] [place], [address], 09/23/2024 03:35:26 09/09/20 24 09/10/2024 CBC WITH DIFFE RENTI AL/PL ATELE T monocytes(ab solute) 0.6 x10e3 /uL 0.1-0. 9 normal Not Available [facility] ([facility]) [address] [facility], [place], [address], 09/23/2024 03:35:26 09/09/20 24 09/10/2024 CBC WITH DIFFE RENTI AL/PL ATELE T eos (absolute) 0.2 x10e3 /uL 0.0-0. 4 normal Not Available [facility] ([facility]) [address] [facility], [place], [address], 09/23/2024 03:35:26 09/09/20 24 09/10/2024 CBC WITH DIFFE RENTI AL/PL ATELE T baso (absolute) 0.0 x10e3 /uL 0.0-0. 2 normal Not Available [facility] ([facility]) [address] [facility], [place], [address], 09/23/2024 03:35:26 09/09/20 24 09/10/2024 CBC WITH DIFFE RENTI AL/PL ATELE T immature granulocytes 0 % not estab. Not Available [facility] ([facility]) [address] [facility], [place], [address], 09/23/2024 03:35:26 09/09/20 24 09/10/2024 CBC WITH DIFFE RENTI AL/PL ATELE T immature grans (abs) 0.0 x10e3 /uL 0.0-0. 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 METAB OLIC PANEL (14) glucose 182 mg/dL 70-99 above high normal Not Available [facility] ([facility]) [address] [place], [address], 09/23/2024 03:35:28 09/09/20 24 09/10/2024 COMP. METAB OLIC PANEL (14) BUN 25 mg/dL 8-27 normal Not Available [facility] ([facility]) [address] [facility], [place], [address], 09/23/2024 03:35:28 09/09/20 24 09/10/2024 COMP. METAB OLIC PANEL (14) creatinine 1.39 mg/dL 0.76-1 .27 above high normal Not Available [facility] ([facility]) [address] [place], [address], 09/23/2024 03:35:28 09/09/20 24 09/10/2024 COMP. METAB OLIC PANEL (14) eGFR 54 mL/mi n/1.7 3 >59 below low normal Not Available [facility] ([facility]) [address] [place], [address], 09/23/2024 03:35:28 09/09/20 24 09/10/2024 COMP. METAB OLIC PANEL (14) BUN/creatini ne ratio 18 10-24 normal Not Available [facility] ([facility]) [address] [place], [address], 09/23/2024 03:35:28 09/09/20 24 09/10/2024 COMP. METAB OLIC PANEL (14) sodium 137 mmol/ L 134-14 4 normal Not Available [facility] ([facility]) [address] [facility] [place], [address], 09/23/2024 03:35:28 09/09/20 24 09/10/2024 COMP. METAB OLIC PANEL (14) potassium 4.2 mmol/ L 3.5-5. 2 normal Not Available [facility] ([facility]) [address] [facility] [place], [address], 09/23/2024 03:35:28 09/09/20 24 09/10/2024 COMP. METAB OLIC PANEL (14) chloride 100 mmol/ L 96-106 normal Not Available [facility] ([facility]) [address] [facility] [place], [address], 09/23/2024 03:35:28 09/09/20 24 09/10/2024 COMP. METAB OLIC PANEL (14) carbon dioxide, total 22 mmol/ L 20-29 normal Not Available [facility] ([facility]) [address] [facility] [place], [address], 09/23/2024 03:35:28 09/09/20 24 09/10/2024 COMP. METAB OLIC PANEL (14) calcium 9.3 mg/dL 8.6-10 .2 normal Not Available [facility] ([facility]) [address] [facility] [place], [address], 09/23/2024 03:35:28 09/09/20 24 09/10/2024 COMP. METAB OLIC PANEL (14) protein, total 6.8 g/dL 6.0-8. 5 normal Not Available [facility] ([facility]) [address] [facility] [place], [address], 09/23/2024 03:35:28 09/09/20 24 09/10/2024 COMP. METAB OLIC PANEL (14) albumin 4.3 g/dL 3.8-4. 8 normal Not Available [facility] ([facility]) [address] [place], [address], 09/23/2024 03:35:28 09/09/20 24 09/10/2024 COMP. METAB OLIC PANEL (14) globulin, total 2.5 g/dL 1.5-4. 5 Not Available [facility] ([facility]) [address] [facility] [place], [address], 09/23/2024 03:35:28 09/09/20 24 09/10/2024 COMP. METAB OLIC PANEL (14) bilirubin, total 0.4 mg/dL 0.0-1. 2 normal Not Available [facility] ([facility]) [address] [facility] [place], [address], 09/23/2024 03:35:28 09/09/20 24 09/10/2024 COMP. METAB OLIC PANEL (14) alkaline phosphatase 79 IU/L 44-121 normal Not Available [facility] ([facility]) [address] [facility], [place], [address], 09/23/2024 03:35:28 09/09/20 24 09/10/2024 COMP. METAB OLIC PANEL (14) AST (SGOT) 17 IU/L 0-40 normal Not Available [facility] ([facility]) [address] [facility] [place], [address], 09/23/2024 03:35:28 09/09/20 24 09/10/2024 COMP. METAB OLIC PANEL (14) ALT (SGPT) 13 IU/L 0-44 normal Not Available [facility] ([facility]) [address] [facility] [place], [address], 09/23/2024 03:35:28 09/09/20 24 09/09/2024 LP+LD L DIREC T LDL calc comment: Commen t See LDL Comme nt if repor clifton. Not Available [facility] ([facility]) [address] [place], [address], 09/23/2024 03:35:29 09/09/20 24 09/10/2024 LP+LD L DIREC T cholesterol, total 138 mg/dL 100-19 9 normal Not Available [facility] ([facility]) [address] [place], [address], 09/23/2024 03:35:29 09/09/20 24 09/10/2024 LP+LD L DIREC T triglyceride s 176 mg/dL 0-149 above high normal Not Available [facility] ([facility]) [address] [place], [address], 09/23/2024 03:35:29 09/09/20 24 09/10/2024 LP+LD L DIREC T HDL cholesterol 33 mg/dL >39 below low normal Not Available [facility] ([facility]) [address] [place], [address], 09/23/2024 03:35:29 09/09/20 24 09/10/2024 LP+LD L DIREC T VLDL cholesterol irvin 30 mg/dL 5-40 Not Available [facility] ([facility]) [address] [place], [address], 09/23/2024 03:35:29 09/09/20 24 09/10/2024 LP+LD L DIREC T LDL chol calc (nih) 75 mg/dL 0-99 Not Available [facility] ([facility]) [address] [place], [address], 09/23/2024 03:35:29 09/09/20 24 09/10/2024 LP+LD L DIREC T LDL chol. 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 normal Not Available [facility] ([facility]) [address] [facility], [place], [address], 09/23/2024 03:35:30 09/09/20 24 09/10/2024 ALBUM IN/CR EAT RATIO , RANDO M UR albumin, urine 181.7 ug/mL not estab. Not Available [facility] ([facility]) [address] [facility], [place], [address], 09/23/2024 03:35:30 09/09/20 24 09/10/2024 ALBUM IN/CR EAT RATIO , RANDO M UR alb/creat ratio 160 mg/g_ creat 0-29 above high normal Denice l: 0 - 29 Moder ately incre ased: 30 - 300 Sever baljit incre ased: >300 Not Available [facility] ([facility]) [address] [facility], [place], [address], 09/23/2024 03:35:30 09/09/20 24 09/22/2024 THYRO ID STIMU LATIN G HORMO NE TSH-icma 1.2 uu/mL Refer ence Range : Non-P regna nt Adult 0.450 -4.50 0 Not Available [facility] [address] [facility], [place], [address], 09/23/2024 03:35:31 09/09/20 24 09/10/2024 HEMOG LOBIN A1C hemoglobin A1C 8.5 % 4.8-5. 6 above high normal Predi abete s: 5.7 - 6.4 Diabe lu: >6.4 Glyce jaye contr ol for adult s with diabe lu: <7.0 Not Available [facility] ([facility]) [address] [facility], [place], [address], 09/23/2024 03:35:32 09/09/20 24 09/10/2024 C-PEP TIDE, SERUM C-peptide, serum 3.2 NG/mL 1.1-4. 4 C-Pep tide refer ence inter montse is for fasti ng patie nts. Not Available [facility] ([facility]) [address] [facility], [place], [address], 09/23/2024 03:35:32 09/09/20 24 09/10/2024 VITAM IN [...] 1. IOM (Inst itute of Medic ine). 2009. Dieta ry refer ence intak es for calci um and D. Gonzalez barajas [place]: [facility] . 2. Rajiv flowers [place], Erendira gill [place], Damien off-F errar i CUEVAS, et al. Evalu ation , treat ment, and preve ntion of vitam in D defic iency : an Endoc rine Socie ty clini irvin pract ice guide line. JCEM. 2010; 96(7) :1911 -30. Not Available [facility] ([facility]) [address] [facility], [place], [address], 09/23/2024 03:35:33 09/09/20 24 09/10/2024 VITAM IN B12 vitamin B12 624 pg/mL 232-12 45 normal Not Available [facility] ([facility]) [address] [facility], [place], [address], 09/23/2024 03:35:34 10/30/19 24 10/30/2023 elect rocar diogr am No observ ation record ed. [facility], [facility] [address], [place], [address], 04/15/2024 19:18:00 10/30/19 24 10/30/2023 elect rocar diogr am No observ ation record ed. [facility] [address], [place], [address], 04/15/2024 19:18:00 04/15/20 24 04/16/2024 elect rocar diogr am No observ ation record ed. [facility] [address], [place], [address], 04/29/2024 10:17:18 04/16/20 24 04/15/2024 elect rocar diogr am No observ ation record ed. [facility] [address], [place], [address], 04/29/2024 10:17:18 04/17/20 24 04/16/2024 CT, angio gram, chest , w/wo contr ast No observ ation record ed. [facility] [address] [place] [address] [address], [place], [address], 04/29/2024 10:17:18 05/07/20 24 05/06/2024 XR, cervi irvin spine , 2 or 3 view No observ ation record ed. [facility] [address], [place], [address], 09/02/2024 09:37:27 05/07/20 24 05/06/2024 XR, lumba r spine No observ ation record ed. [facility] [address], [place], [address], 09/02/2024 09:37:27 09/02/20 24 09/02/2024 minh metry testi ng* No observ ation record ed. patricio [facility], [facility] [address], [place], [address], 09/02/2024 16:49:14 Result Notes None recorded. Problems Name Problem SNOMED Code Status Onset Date Resolution Date Notes Provider Name and Address Organization Details Recorded Time Gastroeso phageal reflux disease without esophagit is 654519179 Active 2023 Juanita Rizo MD [address], [place], [address] , [facility] 4 19:23:28 Solitary nodule of lung 148917069 Active 2023 Juanita Rizo MD [address], [place], [address] , [facility] 4 23:51:45 Neck pain 94854051 Active 2023 Juanita Rizo MD [address], [place], [address] , [facility] 4 21:53:56 Benign prostatic hyperplas ia without outflow obstructi on 362342056 Active Not Available [facility] 4 03:55:26 Chronic renal failure 49409771 Completed 02/22/2017 Juanita Rizo MD [address], [place], [address] , [facility] 7 12:15:43 Diabetes mellitus 41613599 Active Not Available [facility] 4 03:55:27 Benign hypertens ion 38533990 Active Not Available [facility] 4 03:55:26 Ex-smoker 7088797 Active Not Available [facility] 4 03:55:27 Anxiety 38433440 Active Not Available [facility] 4 03:55:27 Gastroeso phageal reflux disease 549754977 Active Not Available [facility] 4 03:55:26 Glaucoma 45929952 Active Not Available [facility] 4 03:55:26 Hyperlipi demia 93927449 Completed 09/28/2018 Juanita Rizo MD [address], [place], [address] , [facility] 8 10:58:58 Cobalamin deficienc y 695513503 Active Not Available [facility] 4 03:55:26 Vitamin D deficienc y 60986230 Active Not Available [facility] 4 03:55:27 Mixed hyperlipi demia 115152801 Active 2017 Not Available [facility] 4 03:55:27 Pulmonary emphysema 01326326 Active 2018 Not Available [facility] 4 03:55:27 Bulla of lung 858142310 Active 2018 1980's Not Available [facility] 4 03:55:27 Diastolic dysfuncti on 8585272 Active 2019 grade 1 on ECHO Not Available [facility] 4 03:55:27 Kidney stone 35514725 Active 2019 Not Available [facility] 4 03:55:27 Low back pain 002034206 Active 2019 Not Available [facility] 4 03:55:27 COVID-19 281920943 Completed 202008/29/2021 Juanita Rizo MD [address], [place], [address] , [facility] 1 16:51:13 Lesion of skin of face 43222398000 6 Active 2020 Not Available [facility] 4 03:55:26 Diverticu losis of colon 192584822 Active 2020 Not Available [facility] 4 03:55:27 Gallstone 707915033 Active 2020 Not Available [facility] 4 03:55:26 Cyst of kidney 432004513 Active 2020 Not Available [facility] 4 03:55:27 Hyperkale nyasia 19637912 Active 2020 Not Available [facility] 4 03:55:26 Squamous cell carcinoma of skin 850790304 Active 2021 Not Available [facility] 4 03:55:26 Actinic keratosis 246261801 Active 2021 Not Available [facility] 4 03:55:26 History of SARS-CoV- 2 [id number] 5635717 Active 2021 Not Available [facility] 4 03:55:27 Long-term drug therapy Active 2021 Not Available [facility] 4 03:55:27 Body mass index 30+ - obesity 403505938 Active 2021 Not Available [facility] 4 03:55:26 Notes:Some problems listed i n Documents: #[id number], #[id number], #[id number], #[id number], #[id number] could not be added to this patient's chart. Please review these documents and add these problems to the patient's chart manually as needed. Problem Notes None recorded. Procedures Surgical History Date Name Laterality Status Provider Name and Address Organization Details Recorded Time 4 Diabetic Foot Exam completed Juanita Rizo MD [address], [place], [address], [facility] 09/02/2024 09:39:32 4 Diabetic Foot Exam completed Juanita Rizo MD [address], [place], [address], [facility] 10/30/2023 11:30:45 3 Diabetic Foot Exam completed Juanita Rizo MD [address], [place], [address], [facility] 07/31/2023 09:41:34 3 Diabetic Foot Exam completed Juanita Rizo MD [address], [place], [address], [facility] 03/14/2023 09:34:20 3 Diabetic Foot Exam completed Juanita Rizo MD [address], [place], [address], [facility] 11/09/2022 15:09:58 2 Diabetic Foot Exam completed Juanita Rizo MD [address], [place], [address], [facility] 07/18/2022 09:18:43 2 Diabetic Foot Exam completed Juanita Rizo MD [address], [place], [address], [facility] 01/24/2022 15:35:37 1 Diabetic Foot Exam completed Juanita Rizo MD [address], [place], [address], [facility] 08/04/2021 11:20:54 1 Diabetic Foot Exam completed Juanita Rizo MD [address], [place], [address], [facility] 03/25/2021 10:02:11 1 Diabetic Foot Exam completed Juanita Rizo MD [address], [place], [address], [facility] 11/09/2020 09:54:53 0 Diabetic Foot Exam completed Juanita Rizo MD [address], [place], [address], [facility] 05/26/2020 15:56:46 9 Diabetic Foot Exam completed Juanita Rizo MD [address], [place], [address], [facility] 09/04/2019 12:01:41 9 Diabetic Foot Exam completed Juanita iRzo MD [address], [place], [address], [facility] 05/08/2019 09:51:34 9 Diabetic Foot Exam completed Juanita Rizo MD [address], [place], [address], [facility] 01/11/2019 12:27:59 8 Diabetic Foot Exam completed Juanita Rizo MD [address], [place], [address], [facility] 09/28/2018 11:02:41 8 Diabetic Foot Exam completed Juanita Rizo MD [address], [place], [address], [facility] 07/17/2018 15:49:41 Imaging Results Imaging Date Name Status LastModified by Organization Details LastModified Time 10/30/2023 [facility]cardiogram [facility] [address], [place], [address], 04/15/2024 19:18:00 10/30/2023 electrocardiogram [facility] [address], [place], [address], 04/15/2024 19:18:00 04/16/2024 [facility] [address], [place], [address], 04/29/2024 10:17:18 04/15/2024 electrocardiogram completed [facility] [address], [place], [address], 04/29/2024 10:17:18 04/16/2024 CT, angiogram, chest, w/wo contrast [facility] [address] [place] [address] [address], [place], [address], 04/29/2024 10:17:18 05/06/2024 XR, cervical spine, 2 or 3 view completed [facility] [address], [place], [address], 09/02/2024 09:37:27 05/06/2024 XR, lumbar spine completed [facility] [address], [place], [address], 09/02/2024 09:37:27 09/02/2024 spirometry testing* [facility], [facility] [address], [place], [address], 09/02/2024 16:49:14 Procedure Notes None recorded. Medical Equipment None Reported. Allergies Allergen ID Allergen Name Allergen Category Reaction Reaction Severity Criticality Documentation Date Start Date Code Code System Note Provider Name and Address Organization Details Recorded Time 2863 Amoxil medicatio n Not available Not available Not available 05/03/2016 16774 9 RxNorm Not Available Not Available Not Available 2864 fish oils food,medi cation Not available Not available Not available 05/03/2016 4419 RxNorm Not Available Not Available Not Available 6393 Januvia medicatio n nausea Not available Not available 09/05/2017 89526 6 RxNorm Not Available Not Available Not Available 6529 Product containin g penicilli n (product) medicatio n Not available Not available Not available 11/03/2017 96741 8001 SNOMED Not Available Not Available Not Available Medications Name Sig Start Date Stop Date [...] /min 16 /min 97.4 [degF] 31 kg/m2 55949.2 9 g 125 mm[Hg] 67 mm[Hg] Alem Saenz [facility] 3 09:09:12 Date Recorded Body height Body mass index (BMI) Body weight Body temperature Respiratory rate Heart rate Systolic blood pressure Diastolic blood pressure Provider Name and Address Organization Details Last Updated DateTime 4 170.18 cm 31.3 kg/m2 21492.4 7 g 98 [degF] 16 /min 76 /min 132 mm[Hg] 66 mm[Hg] Martha Malin [facility] 4 10:42:16 Date Recorded Body height Body mass index (BMI) Body weight Body temperature Respiratory rate Heart rate Systolic blood pressure Diastolic blood pressure Provider Name and Address Organization Details Last Updated DateTime 4 170.18 cm 30.2 kg/m2 83877.3 3 g 97.7 [degF] 16 /min 80 /min 105 mm[Hg] 57 mm[Hg] Martha Kimo [facility] 4 18:59:31 Date Recorded Body height Body temperature Body mass index (BMI) Body weight Respiratory rate Heart rate Systolic blood pressure Diastolic blood pressure Provider Name and Address Organization Details Last Updated DateTime 4 170.18 cm 97.1 [degF] 29.9 kg/m2 11351.1 4 g 16 /min 62 /min 128 mm[Hg] 63 mm[Hg] Martha Kimo [facility] 4 09:56:49 Date Recorded Body height Body mass index (BMI) Body weight Body temperature Heart rate Respiratory rate Systolic blood pressure Diastolic blood pressure Provider Name and Address Organization Details Last Updated DateTime 4 170.18 cm 31 kg/m2 65895.2 9 g 97.3 [degF] 65 /min 16 /min 138 mm[Hg] 74 mm[Hg] Martha Malin [facility] 4 09:16:06 Social History Question Answer Notes LastModified by Organizat ion Details LastModified Time Tobacco Smoking Status Former Smoker 2 PPD for 30 years Ariana felix [facility] 11/09/2020 09:24:19 Do You Have An Advance Directive? No [email or web address] Information n ot available 03/22/2018 What Is Your Level Of Alcohol Consumption? None Information not available 05/03/2016 What Is Your [...] Live Alone Or With Others? With Others Information not available 05/03/2016 What Was The [...] LastModified Time Father Coronary arterioscler osis 73 [email or web address] Not available 2015 09:05:28 Father Epilepsy [email or web address] Not availabl e 05/03/2016 09:05:36 Medical History Condition Response Coronary Artery Disease N Other N Gout N Blood Diseases N Kidney Stones N Hyperthyroidism N Blood Transfusion N Breast Cancer N Lung Disease N COPD N Depression N Hypothyroidism N Defects or Inherited Disease N Developmental or Behavioral Disorders N Breast Problem N Difficulty Swallowing N Anesthesia Complications N Meniere's disease N Anxiety Disorder N Muscle, Joint, or Bone Problems N Obesity N Vision or Eye Problems N Arthritis N Polyps N Infertility N Mental Disorder N Cancer N Stroke N Varicosities N Endometriosis N Bladder or Kidney Problems N High Cholesterol N Liver Disease N Fibromyalgia N Headaches N Kidney Disease N Allergies/Hayfever N Heart [...] virus, quadrivalent, preservative 015 completed Not Available [facility] 11/21/2023 03:55:27 pneumococcal polysaccharide PPV23 011 completed Not Available [facility] 11/21/2023 03:55:27 Td(adult) unspecified formulation 010 completed Not Available [facility] 11/21/2023 03:55:27 Td(adult) unspecified formulation 018 completed Not Available [facility] 11/21/2023 03:55:27 Influenza, high-dose, trivalent, PF 019 cancelled patient objection Not Available [facility] 11/09/2019 02:28:16 zoster recombinant 019 cancelled patient objection Not Available [facility] 11/09/2019 02:28:16 Pneumococcal conjugate PCV 13 019 cancelled patient objection Not Available [facility] 11/09/2019 02:28:14 Past Encounters Encounter ID Performer Location Encounter Start Date Encounter Closed Date Diagnosis/Indication Diagnosis SNOMED-CT Code Diagnosis ICD10 Code Diagnosis Note [id number] Juanita Rizo MD [place] [facility], [facility] [address] [place] [address] 05/03/2016 10:35:20 05/03/2016 11:29:31 Benign hypertension 85302255 I10 Cobalamin deficiency 190 875777 E53.8 Gastroesop hageal reflux disease 244106973 K21.9 Benign pro static hyperplasia without outflow obstruction 593510254 N40.0 Vitamin D deficiency 347 39589 E55.9 Hyperlipidemia 73068713 E78.5 Diabetes mellitus 454965 09 E11.9 Anxiety 68029016 F41.9 Viral screening 09888711 4 Z11.59 Active or passive immunization 771192478 Z23 [id number] Juanita Rizo MD [place] [facility], [facility] [address] [place] [address] 09/27/2016 12:08:42 09/27/2016 12:50:30 Benign hypertension 20182843 I10 Hyperlipidemia 47002654 E78.5 Cobalamin deficiency 190 681111 E53.8 Diabetes mellitus 825677 09 E11.9 Benign pro static hyperplasia without outflow obstruction 255277706 N40.0 Anxiety 53591880 F41.9 Vitamin D deficiency 347 10342 E55.9 Allergic r hinitis caused by pollen 65102802 J30.1 Screening procedure 2012 5006 Z13.9 Viral screening 91394887 4 Z11.59 Active or passive immunization 345508532 Z23 refuse flu [id number] Juanita Rizo MD [place] [facility], [facility] [address] [place] [address] 12/12/2016 10:12:08 12/12/2016 11:18:05 Renewal of prescription 201304818 Z76.0 Diabetes mellitus 448456 09 E11.9 Hyperlipidemia 56768597 E78.5 Vitamin D deficiency 347 27835 E55.9 Screening procedure 2012 5006 Z13.9 Active or passive immunization 631439413 Z23 refuse flu Screening for malignant neoplasm of colon 953879537 Z12.11 Glaucoma 89620107 H40.9 sees ophth every 3 months [id number] Juanita Rizo MD [facility] [address] [place] [address] 02/22/2017 11:29:43 02/22/2017 12:26:06 Benign hypertension 91182716 I10 Vitamin D deficiency 347 38368 E55.9 Diabetes mellitus 974513 09 E11.9 per pt had ophth 2 months ago Benign pro static hyperplasia without outflow obstruction 097540039 N40.0 Cobalamin deficiency 190 110226 E53.8 Screening for malignant neoplasm of colon 529453921 Z12.11 Hyperlipidemia 86770923 E78.5 Skin - angela ign mole and nevus 748147207 D22.9 Screening procedure 2012 5006 Z13.9 Active or passive immunization 753069353 Z23 refuse flu [id number] Juanita Rizo MD [email or web address] [address] [place] [address] 05/30/2017 09:04:37 05/30/2017 09:55:50 Benign hypertension 33162533 I10 Benign pro static hyperplasia without outflow obstruction 149944257 N40.0 Vitamin D deficiency 347 00254 E55.9 Hyperlipidemia 32440554 E78.5 Diabetes mellitus 735117 09 E11.9 per pt had ophth 10/2016 Screening procedure 2012 5006 Z13.9 Screening for malignant neoplasm of colon 895083523 Z12.11 Active or passive immunization 749689003 Z23 refuse flu [id number] Juanita Rizo MD [email or web address], [facility] [address] [place] [address] 09/05/2017 15:44:27 09/05/2017 16:47:33 Benign hypertension 59086508 I10 Hyperlipidemia 45811552 E78.5 Diabetes mellitus 260983 09 E11.9 Vitamin D deficiency 347 43098 E55.9 Mixed anxi ety and depressive disorder 675754884 F41.8 Benign pro static hyperplasia without outflow obstruction 211723544 N40.0 Amputated finger 3554453 07 Z89.029 Screening for malignant neoplasm of colon 915588766 Z12.11 Active or passive immunization 894691312 Z23 refuse shots Screening procedure 2012 5006 Z13.9 [id number] KAMERON GAINES APN [place] [email or web address], [facility] [address] [place] [address] 11/03/2017 08:49:37 11/03/2017 10:10:58 Amputated finger 937347310 Z89.029 Diabetes mellitus 808097 09 E11.9 A1C increase to 9.1check BG TID and log -- send results in 2 weeks Chronic ki dney disease stage 3 692964501 N18.3 Hyperlipidemia 31644048 E78.5 Vitamin D deficiency 347 49791 E55.9 Benign hypertension 1072 5009 I10 Benign pro static hyperplasia without outflow obstruction 160954838 N40.0 Mixed anxi ety and depressive disorder 327520208 F41.8 Allergic r hinitis caused by pollen 15459867 J30.1 [id number] KAMERON GAINES APN [place] [email or web address], [facility] [address] [place] [address] 11/16/2017 11:18:16 11/16/2017 12:41:56 Benign hypertension 72114793 I10 Hyperlipidemia 66839147 E78.5 Atorvastat in 40mg ---- may increase atorvastat in 80mg since zetia is too expensive although need to do research on generic pricesfeno fibrate 145Zetia was just added (increase in rice ) may need to switch --- as noted above Diabetes mellitus 949020 09 E11.9 Continue Metformin 500 twice daily (renal dosage)tra djenta continueds top Amaryl [id number] Juanita Rizo MD [facility], [facility] [address] [place] [address] 12/04/2017 12:12:14 12/04/2017 13:03:10 Diabetes mellitus 31823175 E11.9 BG 100-270 , cut down carb , helping a lot with weight Serum crea tinine above reference range 916622498 R79.89 Benign hypertension 1072 5009 I10 Pain in thumb 269952576 M79.644 Hyperlipidemia 18864487 E78.5 recheck FLP,AST,AL T 6 weeks after increased atorva [id number] Juanita Rizo MD [place] [facility], [facility] [address] [place] [address] 03/22/2018 10:10:34 03/22/2018 11:02:38 Adult health examination 780026262 Z00.01 Benign hypertension 1072 5009 I10 good control Diabetes mellitus 645768 09 E11.9 BG 100-270 , cut down carb , helping a lot with weightlast ophth eval 10/2017 Hyperlipidemia 28533728 E78.5 last LDL 10/30/17 above goal , recheck Anxiety 73505961 F41.9 no SI , No HI Vitamin D deficiency 347 96976 E55.9 last level 10/30/17 , Benign pro static hyperplasia without outflow obstruction 227846043 N40.0 Glaucoma 63585513 H40.9 sees ophth every 3 months Ex-smoker 2521195 Z87.89 1 education Cobalamin deficiency 190 209377 E53.8 Screening for malignant neoplasm of colon 693998007 Z12.11 Active or passive immunization 212462650 Z23 refuse shots [id number] Juanita Rizo MD [place] [facility], [facility] [address] [place] [address] 07/17/2018 14:46:35 07/17/2018 15:58:32 Benign hypertension 02176800 I10 good control Vitamin D deficiency 347 88093 E55.9 last level 10/30/17 , Diabetes mellitus 860880 09 E11.9 BG 100-270 , cut down carb , helping a lot with weightlast ophth eval 10/2017 Hyperlipidemia 52913376 E78.5 last LDL 10/30/17 above goal , recheck Screening for malignant neoplasm of colon 518484619 Z12.11 Active or passive immunization 325692410 Z23 refuse shots [id number] Juanita Rizo MD [place] [facility], [facility] [address] [place] [address] 09/28/2018 10:18:04 09/28/2018 11:09:08 Mixed hyperlipidemia 220042293 E78.2 add zetia , recheck FLP 6-8 weeks Uncontroll ed type 2 diabetes mellitus 208739876 E11.65 BG TID , fax 2 weeks Benign hypertension 1072 5009 I10 good control Screening for malignant neoplasm of colon 382412821 Z12.11 Active or passive immunization 945098535 Z23 refuse shots [id number] Juanita Rizo MD [place] [facility], [facility] [address] [place] [address] 01/11/2019 11:57:08 01/11/2019 12:32:53 Benign hypertension 96214460 I10 good control Cobalamin deficiency 190 553024 E53.8 Mixed hyperlipidemia 267 948249 E78.2 last LDL 01/04/19 @ goal Diabetes mellitus 203059 09 E11.9 BG 80-160 , cut down carb , helping a lot with weightlast ophth eval 12/2018 per pt Body mass index 25-29 - overweight 314841316 Z68.29 lost few LBs Screening for malignant neoplasm of colon 669463569 Z12.11 refuse c scope OR cologaurd Active or passive immunization 279729732 Z23 refuse shots Sinusitis 15169744 J32.9 [id number] Juanita Rizo MD [place] [email or web address], [facility] [address] [place] [address] 05/08/2019 09:19:31 05/08/2019 10:06:37 Adult health examination 807293426 Z00.01 Benign hypertension 1072 5009 I10 good control Cobalamin deficiency 190 185448 E53.8 Gastroesop hageal reflux disease 942069851 K21.9 stable Benign pro static hyperplasia without outflow obstruction 138212682 N40.0 asymptomat ic Glaucoma 93809090 H40.9 sees ophth every 3 months Mixed hyperlipidemia 267 496787 E78.2 last LDL 01/04/19 @ goal Vitamin D deficiency 347 00082 E55.9 last level 10/30/17 , Anxiety 51221146 F41.9 no SI , No HI Diabetes mellitus 013484 09 E11.9 BG 80-160 , cut down carb , helping a lot with weightlast ophth eval 12/2018 per pt Ex-smoker 1557547 Z87.89 1 education Diastolic dysfunction 35 76285 I50.30 mild ,grade 1 on ECHO 09/22/15 Screening for malignant neoplasm of colon 698646009 Z12.11 refuse c scope OR cologaurd Active or passive immunization 210630367 Z23 refuse shots [id number] KAMERON GAINES APN [facility], [facility] [address] [place] [address] 06/28/2019 09:50:34 06/28/2019 10:45:17 Congestion of nasal sinus 70968568 R09.81 Cough 53136887 R05 Hyperkalemia 03668427 E8 7.5 pt aware to repeat K in 1 weekpt reports he has been eating a lot of grapefruit and drinking tomato juice - [id number] Juanita Rizo MD [place] [facility], [facility] [address] [place] [address] 09/04/2019 11:36:12 09/04/2019 12:08:51 Benign hypertension 83720437 I10 good control Diabetes mellitus 894581 09 E11.9 BG 80-160 , cut down carb , helping a lot with weightlast ophth eval 12/2018 per pt Mixed hyperlipidemia 267 358798 E78.2 last LDL 01/04/19 @ goal Vitamin D deficiency 347 36126 E55.9 last level 10/30/17 , Cobalamin deficiency 190 799807 E53.8 Screening for malignant neoplasm of colon 346733967 Z12.11 refuse c scope OR cologaurd Active or passive immunization 036645195 Z23 refuse shots [id number] Juanita Rizo MD [place] [facility], [facility] [address] [place] [address] 09/24/2019 11:55:57 09/24/2019 12:20:15 Benign hypertension 71384284 I10 good control Diabetes mellitus 444085 09 E11.9 BG 80-160 , cut down carb , helping a lot with weightlast ophth eval 12/2018 per pt Body mass index 25-29 - overweight 689888504 Z68.29 lost 6 LBs Mixed hyperlipidemia 267 941805 E78.2 last LDL 01/04/19 @ goal Cough 69981943 R05 cont' Abx , add proair PRN , add 3 days prednisone , check CXRRTC 2-3 days if not betterPO 97% on RA [id number] KAMERON GAINES APN [place] [facility], [facility] [address] [place] [address] 10/09/2019 11:13:32 10/09/2019 12:11:19 Cough 69989399 R05 history of COPD 80s --- emphysema bolus with tension pneumothor axcough waking and waning x 2 /3 0 - doxy -- min yfgork80/3 - prednisone completed - states if helped - CXR completed todayecho scheduled tomorrow -symptoms for most part improves with activity and worsens at rest -states will wake up sob or ioudrmas60 98% Orthopnea 59461499 R06.0 1 echo scheduled tomorrow - [id number] Juanita Rizo MD [place] [email or web address], [facility] [address] [place] [address] 05/18/2020 17:20:24 05/18/2020 18:29:04 Hydronephrosis 45117174 N13.30 seen urology , will get consult note Kidney stone 20670492 N2 0.0 Lt Diabetes mellitus 772923 09 E11.9 BG 80-160 , cut down carb , helping a lot with weightlast ophth eval 12/2018 per pt Serum crea tinine above reference range 947894630 R79.89 [id number] Juanita Rizo MD [place] [email or web address], [facility] [address] [place] [address] 05/26/2020 15:25:20 05/26/2020 16:06:04 Benign hypertension 21293371 I10 good control Diabetes mellitus 445519 09 E11.9 BG 80-160 , cut down carb , helping a lot with weightlast ophth eval 12/2018 per pt Cobalamin deficiency 190 122567 E53.8 Kidney stone 29754535 N2 0.0 Lt , seen urology , having out next week Mixed hyperlipidemia 267 687164 E78.2 last LDL 01/04/19 @ goal Vitamin D deficiency 347 56891 E55.9 last level 10/30/17 , Adult heal th examination 512820928 Z00.01 Glaucoma 79505169 H40.9 sees ophth every 3 months Gastroesop hageal reflux disease 859734762 K21.9 stable Ex-smoker 3502662 Z87.89 1 education Diastolic dysfunction 35 24293 I50.30 mild ,grade 1 on ECHO 09/22/15 Body mass index 25-29 - overweight 946416593 Z68.29 lost 6 LBs Benign pro static hyperplasia without outflow obstruction 270677738 N40.0 asymptomat ic Screening for malignant neoplasm of colon 366016941 Z12.11 refuse c scope OR cologaurd Active or passive immunization 349945581 Z23 refuse shots Low back pain 783119525 M54.5 [id number] Juanita Rizo MD [place] [facility] [facility], [facility] [address] [place] [address] 11/09/2020 09:00:06 11/09/2020 10:05:44 Benign hypertension 15814958 I10 good controllas t EKG 05/26/20 Body mass index 30+ - obesity 359755228 Z68.30 education Diabetes mellitus 993635 09 E11.9 BG 80-160 , cut down carblast ophth eval 12/2018 per pt Cobalamin deficiency 190 449894 E53.8 Kidney stone 61166871 N2 0.0 Lt ,sees urology on reg basislast CT abd 05/12/20 Mixed hyperlipidemia 267 435009 E78.2 last LDL 06/17/20 @ goal Vitamin D deficiency 347 18311 E55.9 last level 06/17/20 Screening for malignant neoplasm of colon 960741060 Z12.11 refuse c scope OR cologaurd Active or passive immunization 508042233 Z23 refuse shots Pulmonary emphysema 8743 3001 J43.9 last PFT 09/2019 [id number] Juanita Rizo MD [place] [facility] [facility], [facility] [address] [place] [address] 03/25/2021 09:14:51 03/25/2021 10:07:46 Diabetes mellitus 72974839 E11.9 BG 80-160 , cut down carbs last ophth eval 10/2020 per pt Mixed hyperlipidemia 267 619529 E78.2 last LDL 06/17/20 @ goal Benign hypertension 1072 5009 I10 good controllas t EKG 05/26/20 Body mass index 25-29 - overweight 065411586 Z68.29 education Vitamin D deficiency 347 87963 E55.9 last level 11/30/20 Screening for malignant neoplasm of colon 128960533 Z12.11 refuse c scope OR cologaurd Active or passive immunization 286807541 Z23 refuse shots Cobalamin deficiency 190 714484 E53.8 Anxiety 25553626 F41.9 no SI , No HI Benign pro static hyperplasia without outflow obstruction 645450391 N40.0 asymptomat ic [id number] Juanita Rizo MD [place] [email or web address], [facility] [address] [place] [address] 08/04/2021 10:42:01 08/04/2021 11:41:57 Dyspnea 084751646 R06.00 started after COVID 06/2021 Diabetes mellitus 057835 09 E11.9 BG 80-160 , cut down carbs last ophth eval 04/2021 per pt Mixed hyperlipidemia 267 067857 E78.2 last LDL 06/17/20 @ goal Vitamin D deficiency 347 51903 E55.9 last level 11/30/20 Cobalamin deficiency 190 639201 E53.8 Benign hypertension 1072 5009 I10 good controllas t EKG 05/26/20 Screening for malignant neoplasm of colon 042140403 Z12.11 refuse c scope OR cologaurd Active or passive immunization 712392684 Z23 refuse shots Lesion of skin of face 3234071415 06 L98.9 Body mass index 25-29 - overweight 105521960 Z68.29 educationl ost another 10 LBs [id number] Juanita Rizo MD [facility], [facility] [address] [place] [address] 01/24/2022 14:52:36 01/24/2022 15:51:08 Benign hypertension 55689041 I10 good controllas t EKG 08/04/21 Low back pain 328550049 M54.50 Body mass index 25-29 - overweight 941143575 Z68.29 educationl ost another 10 LBs Cobalamin deficiency 190 673391 E53.8 last levl 09/2021 Diabetes mellitus 824719 09 E11.9 BG 80-160 , cut down carbs last ophth eval 01/06/2022 per pt Mixed hyperlipidemia 267 002316 E78.2 last LDL 09/27/21 @ goal Vitamin D deficiency 347 02461 E55.9 last level 09/27/21 Screening for malignant neoplasm of colon 332459031 Z12.11 refuse c scope OR cologaurd Active or passive immunization 665347486 Z23 refuse shots Advance di rective discussed with patient 113869750 Z71.89 education Adult heal th examination 000814496 Z00.01 Benign pro static hyperplasia without outflow obstruction 862381828 N40.0 asymptomat ic Ex-smoker 2402469 Z87.89 1 educationq uit 2000 Gallstone 316246023 K80. 20 asymptomat ic Gastroesop hageal reflux disease 747805222 K21.9 stable Kidney stone 66301618 N2 0.0 Lt ,sees urology on reg basislast CT abd 08/27/21 Squamous c ell carcinoma of skin 836333162 C44.92 per derm note 10/2021 Actinic keratosis 215698 007 L57.0 seen derm History of SARS-CoV-2 29 24038544 78796962 Z86.16 tested +ve 06/2021 [id number] Juanita Rizo MD [facility], [facility] [address] [place] [address] 07/18/2022 08:50:11 07/18/2022 09:28:56 Benign hypertension 93097509 I10 increase lisinopril BP 2 weekslast EKG 08/04/21 Diabetes mellitus 934369 09 E11.9 BG 80-160 , cut down carbs last ophth eval 01/06/2022 per pt Kidney stone 75907474 N2 0.0 Lt ,sees urology on reg basislast CT abd 08/27/21 Mixed hyperlipidemia 267 143597 E78.2 last LDL 09/27/21 @ goal Vitamin D deficiency 347 32083 E55.9 last level 09/27/21 Screening for malignant neoplasm of colon 263631976 Z12.11 refuse c scope OR cologaurd Active or passive immunization 498631828 Z23 refuse shots Long-term drug therapy 720742184 Z79.899 metformin Body mass index 30+ - obesity 382858779 Z68.30 education [id number] Juanita Rizo MD [employer] [address] [place] [address] 11/09/2022 14:07:53 11/09/2022 15:24:12 Diabetes mellitus 14219836 E11.9 BG 80-160 , cut down carbs last ophth eval 01/06/2022 per pt Benign hypertension 1072 5009 I10 BP 2 weekslast EKG 08/04/21 Body mass index 30+ - obesity 986024790 Z68.30 education Cobalamin deficiency 190 173820 E53.8 last levl 07/18/22 Long-term drug therapy 228048658 Z79.899 metformin Mixed hyperlipidemia 267 512994 E78.2 last LDL 07/18/22 @ goal Vitamin D deficiency 347 39311 E55.9 last level 07/18/22 Screening for malignant neoplasm of colon 316602063 Z12.11 refuse c scope OR cologaurd Active or passive immunization 888113507 Z23 refuse shots Advance di rective discussed with patient 520504041 Z71.89 education [id number] Juanita Rizo MD [employer], [facility] [address] [place] [address] 03/14/2023 08:51:53 03/14/2023 09:44:00 Adult health examination 206789274 Z00.01 Benign hypertension 1072 5009 I10 BP 2 weekslast EKG 11/09/22 Body mass index 30+ - obesity 914524595 Z68.30 education Benign pro static hyperplasia without outflow obstruction 957213513 N40.0 asymptomat ic Cobalamin deficiency 190 409642 E53.8 last levl 07/18/22 Diabetes mellitus 071752 09 E11.9 BG 80-160 , cut down carbs last ophth eval 11/2022 per pt Cyst of kidney 093646734 N28.1 asymptomat ic Diastolic dysfunction 35 88155 I50.30 mild ,grade 1 on ECHO 09/22/15 Diverticul osis of colon 644060353 K57.30 asymptomat ic Ex-smoker 7128115 Z87.89 1 educationq uit 2000 Gallstone 628363455 K80. 20 asymptomat ic Actinic keratosis 751680 007 L57.0 seen derm Gastroesop hageal reflux disease 188809530 K21.9 stable Glaucoma 89269995 H40.9 sees ophth every 3 months History of SARS-CoV-2 29 83837986 67765478 Z86.16 tested +ve 06/2021 Kidney stone 38297040 N2 0.0 Lt ,sees urology on reg basislast CT abd 08/27/21 Long-term drug therapy 699946164 Z79.899 metformin Mixed hyperlipidemia 267 115089 E78.2 last LDL 07/18/22 @ goal Low back pain 884549773 M54.50 Squamous c ell carcinoma of skin 943093080 C44.92 per derm note 10/2021 Vitamin D deficiency 347 09953 E55.9 last level 07/18/22 Screening for malignant neoplasm of colon 493970780 Z12.11 refuse c scope OR cologaurd Active or passive immunization 868376519 Z23 refuse shots [id number] Juanita Rizo MD [employer] [address] [place] [address] 07/31/2023 08:46:59 07/31/2023 09:54:35 Preoperative cardiovascular examination 206599513 Z01.810 OK for cataract surgery under [facility] Amaryl , [facility] the day of the surgery Benign hypertension 1072 5009 I10 BP 2 weekslast EKG 11/09/22 Body mass index 30+ - obesity 682383781 Z68.30 education Diabetes mellitus 728494 09 E11.9 BG 80-160 , cut down carbs last ophth eval 11/2022 per pt Kidney stone 52455878 N2 0.0 Lt ,sees urology on reg basislast CT abd 08/27/21 Mixed hyperlipidemia 267 477164 E78.2 last LDL 01/13/23 @ goal Screening for malignant neoplasm of colon 334447847 Z12.11 refuse c scope OR cologaurd Active or passive immunization 685439099 Z23 refuse shots Vitamin D deficiency 347 56345 E55.9 last level 07/18/22 [id number] Juanita Rizo MD [email or web address] [address] [place] [address] 10/30/2023 10:13:30 10/30/2023 11:40:53 Benign hypertension 69195419 I10 BP 2 weekslast EKG 11/09/22 Benign pro static hyperplasia without outflow obstruction 398688873 N40.0 asymptomat ic Body mass index 30+ - obesity 929386020 Z68.30 education Cobalamin deficiency 190 090635 E53.8 last levl 03/15/23 Bulla of lung 879480222 J43.9 Diabetes mellitus 053161 09 E11.9 BG 80-160 , cut down carbs last ophth eval 09/2023 per pt Ex-smoker 5193280 Z87.89 1 educationq uit 2000 Kidney stone 39712453 N2 0.0 Lt ,sees urology on reg basislast CT abd 08/27/21 Long-term drug therapy 056621204 Z79.899 metformin Mixed hyperlipidemia 267 445831 E78.2 last LDL 01/13/23 @ goal Pulmonary emphysema 8743 3001 J43.9 last PFT 09/2019 Screening for malignant neoplasm of colon 017965152 Z12.11 refuse c scope OR cologaurd Active or passive immunization 792261067 Z23 refuse shots Advance di rective discussed with patient 459385913 Z71.89 education 293140 Juanita Rizo MD [employer] [address] [place] [address] 04/15/2024 18:47:24 04/16/2024 19:45:54 Benign hypertension 71253830 I10 D/C HCTZBP 2 weekslast EKG 11/09/22 Atypical chest pain 1025 72307 R07.89 interscapu lar between shoulder bladeswill check EKG and CTA Body mass index 30+ - obesity 145488455 Z68.30 education Cobalamin deficiency 190 641307 E53.8 last levl 11/21/23 Long-term drug therapy 530764611 Z79.899 metformin Diabetes mellitus 822581 09 E11.9 BG 80-160 , cut down carbs last ophth eval 09/2023 per ptlast GIOVANI 11/21/23dec rease metformin to 500 BID 2ry to ^ Cr Screening for malignant neoplasm of colon 220011606 Z12.11 refuse c scope OR cologaurd Active or passive immunization 631967449 Z23 refuse shots Gastroesop hageal reflux disease without esophagitis 727312845 K21.9 425158 Juanita Rizo MD [employer] [address] [place] [address] 04/29/2024 09:42:56 04/29/2024 10:28:02 Neck pain 12919301 M54.2 Low back pain 275195525 M54.50 Uncontroll ed type 2 diabetes mellitus 922773507 E11.65 BG TID , fax 2 weeks [id number] Juanita Rizo MD [facility], [facility] [address] [place] [address] 09/02/2024 09:08:39 09/02/2024 09:52:20 Adult health examination 854333793 Z00.01 Benign hypertension 1072 5009 I10 better controlBP 2 weekslast EKG 04/16/24 Benign pro static hyperplasia without outflow obstruction 903513998 N40.0 asymptomat ic Body mass index 30+ - obesity 737648912 Z68.30 education Bulla of lung 434931934 J43.[address] 04/16/24 Cobalamin deficiency 190 358764 E53.8 last levl 11/21/23 Cyst of kidney 099257357 N28.1 asymptomat ic Diabetes mellitus 846797 09 E11.9 BG 80-160 , cut down carbs last ophth eval 08/23/24 per ptlast GIOVANI 11/21/23dec rease metformin to 500 BID 2ry to ^ Cr Diastolic dysfunction 35 86964 I50.30 mild ,grade 1 on ECHO 09/22/15 Diverticul osis of colon 544532041 K57.30 asymptomat ic Ex-smoker 7039394 Z87.89 1 educationq uit 2000 Gallstone 402458355 K80. 20 asymptomat ic Gastroesop hageal reflux disease 533458303 K21.9 stable Glaucoma 71074501 H40.9 sees ophth every 3 months History of SARS-CoV-2 29 78923627 18668647 Z86.16 tested +ve 06/2021 Hyperkalemia 18596457 E8 7.5 recheck Kidney stone 30744066 N2 0.0 Lt ,sees urology on reg basislast CT abd 08/27/21 Lesion of skin of face 1595424289 06 L98.9 sees derm on reg basis yearly Long-term drug therapy 221054232 Z79.899 metformin Low back pain 736316918 M54.50 stable Mixed hyperlipidemia 267 059339 E78.2 last LDL 11/21/23 @ goal Neck pain 02336132 M54.2 stable Squamous c ell carcinoma of skin 300628392 C44.92 per derm note 10/2021 Solitary n odule of lung 138734524 R91.1 on CTA chest 04/16/24 Pulmonary emphysema 8743 3001 J43.9 last PFT 09/2019 Vitamin D deficiency 347 12808 E55.9 last level 07/18/22 Screening for malignant neoplasm of colon 806204378 Z12.11 refuse c scope OR cologaurd Active or passive immunization 292604756 Z23 refuse shots Advance di rective discussed with patient 656624498 Z71.89 education Health Concerns Section Related Observation LastModified by Organization Detai ls LastModified Time None Recorded Concern Status LastModified by Organization Details LastModified Time None Recorded Advance Directives Directive N: Payers Encounter Date Sequence Insurance Name Policy Number Policy Barone Covered Member ID Barone Member ID Guarantor Name 07/31/2023 1 [employer] (MEDICARE REPLACEMENT PPO) [id number] Baldo Pozo [id number] Baldo Pozo 10/30/2023 1 [facility] (MEDICARE REPLACEMENT/AD VANTAGE - PPO) [id number] Baldo Pozo [id number] Baldo Pozo 04/15/2024 1 [facility] (MEDICARE REPLACEMENT/AD VANTAGE - PPO) [id number] Baldo Pozo [id number] Baldo Pozo 04/29/2024 1 [facility] (MEDICARE REPLACEMENT/AD VANTAGE - PPO) [id number] Baldo Pozo [id number] Baldo Pozo 09/02/2024 1 [facility] (MEDICARE REPLACEMENT/AD VANTAGE - PPO) [id number] Baldo Pozo [id number] Baldo Pozo Notes Date Note Type Note [...] cologaurdhaving cataract 09/06/23 Juanita Rizo MD [address], [place], [address], [facility] 07/31/2023 09:45:26 10/30/2023 text/html Hypertension F/UReported bypatient.Medications: taking medications as directed; no side effects from medication Lifestyle:regular exercise; limiting/avoiding salt; compliant with low salt diet Associated Symptoms:no dizziness; no lightheadedness; no chest pain; no shortness of breath; no palpitations; no edema; no calf pain with exertion; no headache Juanita Rizo MD [address], [place], [address], [facility] 10/30/2023 11:34:11 04/15/2024 text/html Hypertension F/UReported bypatient.Medications: taking medications as directed; no side effects from medication Lifestyle:regular exercise; limiting/avoiding salt; compliant with low salt diet Associated Symptoms:no dizziness; no lightheadedness; no chest pain; no shortness of breath; no palpitations; no edema; no calf pain with exertion; no headache upper back pain , in between shoulders blades Juanita Rizo MD [address], [place], [address], [facility] 04/15/2024 19:28:46 04/29/2024 text/html Hypertension F/UReported [...] no red flags Juanita Rizo MD [address], [place], [address], [facility] 04/29/2024 10:24:36 09/02/2024 text/html Hypertension F/UReported [...] hearing loss while driving Juanita Rizo MD [address] [place] [address], [place], [address], [facility] 09/02/2024 09:42:49
--- OUTSIDE RECORDS SUMMARY | 2025-02-12 14:03 | XMS_ITS | Continuity of Care Document ---
Author Organization [facility] Address [address] [place] [address] [address] [place] [address] Phone Care Team Providers Care Transplant Rn Name Role Phone Uriah Pérez DO Unavailable Unavailable Advance Directives Directive Yes / No Effective Date File Name No Information Encounters Encounter Description Practice Location Reason(s) For Visit Diagnoses Date Provider Providers Copied on Encounter [facility], [address], [place], [place], [id number], tel:[phone] [facility] No Information [address] [address] [place], [address], [place]. tel:[phone] Referring Provider: Sachin Hu OD W, [address] [place] [address], [address]. tel:[phone] Family History Family Member Type Diagnosis Age At Onset No Information Payers Payer name Insurance type Covered constitution party ID Authoriza tion(s) No Information Social [...]
== END 2025-02-12 14:03 | disposition home or self-care (01) ==
PROVIDERS: Emergency Provider Nurse Practitioner; PCP Internal Medicine
DX: J01.90 Acute sinusitis, unspecified (principal); H61.22 Impacted cerumen, left ear; I12.9 Hypertensive chronic kidney disease with stage 1 through stage 4 chronic kidney disease, or unspecified chronic kidney disease; E11.22 Type 2 diabetes mellitus with diabetic chronic kidney disease; N18.1 Chronic kidney disease, stage 1; E78.00 Pure hypercholesterolemia, unspecified; J43.9 Emphysema, unspecified; Z87.891 Personal history of nicotine dependence
CPT/HCPCS: 69210; 99213; A9270; G0463